=== PATIENT | male | born 1945 | race Caucasian/White ===

== ENCOUNTER 2020-07-11 06:23 | Outpatient (REF) | payer MEDICARE, OTHER, SELFPAY ==
[2020-07-11 11:28] LABS: MANUAL DIFF FLAG NO
[2020-07-11 11:44] LABS: Glucose Urine UA NEG (NEG); Leukocyte Esterase Urine NEG (NEG); Nitrite Urine NEG (NEG); Specific Gravity - Urine 1.015 (1.005-1.025); Urine Blood NEG (NEG); Urine Ketones NEG (NEG); Urine Protein NEG (NEG-TRACE)
[2020-07-11 11:45] LABS: Basophils Absolute Auto 0.1 X10*3/uL (0.0-0.2); Basophils Percent Auto 1.6 % (0-2); Eosinophils Absolute Auto 0.3 X10*3/uL (0.0-0.4); Eosinophils Percent Auto 3.9 % (0-4); Hematocrit 43.3 % (42-52); Hemoglobin 13.6 g/dl (14.0-18.0); Imm Gran Abs Auto 0.03 X10*3/uL (0.00-0.03); Imm Gran Pct Auto 0.4 % (0.0-0.4); Lymphocytes Percent Auto 14.2 % (20-40); Mean Corpuscular HGB Conc 31.4 g/dl (31.0-36.0); Mean Corpuscular Hemoglobin 28.8 pg (27.0-33.0); Mean Corpuscular Volume 91.5 fL (80-98); Mean Platelet Volume 9.7 fL (9.4-12.4); Monocytes Absolute Auto 0.8 X10*3/uL (0.1-1.2); Monocytes Percent Auto 11.4 % (2-11); Neutrophils Absolute Auto 4.6 X10*3/uL (2.0-8.3); Neutrophils Percent Auto 68.5 % (45-73); Platelet Count 206 X10*3/uL (160-400); Red Blood Count 4.73 X10*6/uL (4.60-5.80); Red Cell Distribution Width 15.7 % (11.0-16.0); White Blood Count 6.7 X10*3/uL (4.8-10.8)
[2020-07-11 11:51] LABS: Appearance Urine CLEAR; Color Urine YELLOW
[2020-07-11 11:59] LABS: Estimated Average Glucose 117 mg/dL; Hemoglobin A1c % 5.7 %
[2020-07-11 12:03] LABS: WBC Urine 0 /HPF (0-4)
[2020-07-11 12:04] LABS: RBC Urine 0 /HPF (0)
[2020-07-11 12:13] LABS: Alanine Aminotransferase 11 U/L (0-40); Albumin Level 3.9 g/dL (3.5-5.0); Alkaline Phosphatase 60 U/L (39-117); Anion Gap 14 (12-20); Aspartate Amino Transferase 15 U/L (5-37); Bilirubin Total 0.6 mg/dL (0.0-1.0); Blood Urea Nitrogen 10 mg/dL (9-16); Calcium 8.8 mg/dL (8.4-10.2); Carbon Dioxide 27 mmol/L (22-29); Chloride 105 mmol/L (96-108); Cholesterol 123 mg/dL; Estimated Glomerular Filt Rate > 60; Glucose Fasting 116 mg/dL (60-99); HDL Cholesterol 37 mg/dL; LDL Cholesterol Calculated 72 mg/dl; Potassium 4.7 mmol/l (3.3-5.1); Sodium 141 mmol/L (135-145); Total Protein 6.2 g/dL (6.5-8.0); Triglycerides 72 mg/dL
[2020-07-11 12:14] LABS: TSH reflex Free T4 0.84 mIU/mL (0.32-4.0)
== END 2020-07-11 06:24 | disposition home or self-care (01) ==
LOC: HO.HMGCLDS 06:23
PROVIDERS: PCP Internal Medicine; Visit Provider Internal Medicine
DX: E78.5 Hyperlipidemia, unspecified (principal); I10 Essential (primary) hypertension; R73.01 Impaired fasting glucose; Z85.01 Personal history of malignant neoplasm of esophagus; N40.0 Benign prostatic hyperplasia without lower urinary tract symptoms; E55.9 Vitamin D deficiency, unspecified; E66.3 Overweight
CPT/HCPCS: 36415; 80053; 80061; 81001; 82306; 83036; 84443; 85025

== ENCOUNTER → 2020-07-16 15:57 | Outpatient (BNV) | payer MEDICARE, OTHER, SELFPAY | PROVIDERS: Visit Provider Internal Medicine | DX: C15.9 Malignant neoplasm of esophagus, unspecified (principal) | CPT/HCPCS: 99213; 99214; G2211 ==

== ENCOUNTER 2020-09-12 | Outpatient (REF) | payer MEDICARE, OTHER, SELFPAY | END 2020-09-12 00:01 | disposition home or self-care (01) | LOC: HO.VC | PROVIDERS: Visit Provider Internal Medicine | DX: Z23 Encounter for immunization (principal) | CPT/HCPCS: 0011A ==

== ENCOUNTER 2020-10-09 | Outpatient (REF) | payer MEDICARE, OTHER, SELFPAY | END 2020-10-09 00:01 | disposition home or self-care (01) | LOC: HO.VC | PROVIDERS: Visit Provider Internal Medicine | DX: Z23 Encounter for immunization (principal) | CPT/HCPCS: 0012A ==

== ENCOUNTER 2020-10-23 09:30 | Outpatient (REF) | payer MEDICARE, OTHER, SELFPAY ==
[2020-10-23 11:13] LABS: MANUAL DIFF FLAG NO
[2020-10-23 11:29] LABS: Glucose Urine UA NEG (NEG); Leukocyte Esterase Urine NEG (NEG); Nitrite Urine NEG (NEG); Urine Blood NEG (NEG); Urine Ketones NEG (NEG); Urine Protein NEG (NEG-TRACE)
[2020-10-23 11:32] LABS: Appearance Urine CLEAR; Color Urine YELLOW
[2020-10-23 11:34] LABS: Basophils Absolute Auto 0.1 X10*3/uL (0.0-0.2); Basophils Percent Auto 1.1 % (0-2); Eosinophils Absolute Auto 0.2 X10*3/uL (0.0-0.4); Eosinophils Percent Auto 2.8 % (0-4); Hematocrit 43.9 % (42-52); Hemoglobin 14.1 g/dl (14.0-18.0); Imm Gran Abs Auto 0.02 X10*3/uL (0.00-0.03); Imm Gran Pct Auto 0.2 % (0.0-0.4); Lymphocytes Percent Auto 11.9 % (20-40); Mean Corpuscular HGB Conc 32.1 g/dl (31.0-36.0); Mean Corpuscular Hemoglobin 29.1 pg (27.0-33.0); Mean Corpuscular Volume 90.5 fL (80-98); Mean Platelet Volume 9.3 fL (9.4-12.4); Monocytes Absolute Auto 0.8 X10*3/uL (0.1-1.2); Monocytes Percent Auto 9.7 % (2-11); Neutrophils Percent Auto 74.3 % (45-73); Platelet Count 214 X10*3/uL (160-400); Red Blood Count 4.85 X10*6/uL (4.60-5.80); Red Cell Distribution Width 15.6 % (11.0-16.0); White Blood Count 8.1 X10*3/uL (4.8-10.8)
[2020-10-23 11:54] LABS: Alanine Aminotransferase 11 U/L (0-40); Albumin Level 3.9 g/dL (3.5-5.0); Alkaline Phosphatase 65 U/L (39-117); Anion Gap 13 (12-20); Aspartate Amino Transferase 15 U/L (5-37); Bilirubin Total 0.7 mg/dL (0.0-1.0); Blood Urea Nitrogen 10 mg/dL (9-16); Calcium 8.7 mg/dL (8.4-10.2); Carbon Dioxide 28 mmol/L (22-29); Chloride 104 mmol/L (96-108); Cholesterol 121 mg/dL; Estimated Glomerular Filt Rate > 60; Glucose Fasting 105 mg/dL (60-99); HDL Cholesterol 38 mg/dL; LDL Cholesterol Calculated 70 mg/dl; Sodium 140 mmol/L (135-145); Total Protein 6.4 g/dL (6.5-8.0); Triglycerides 69 mg/dL
[2020-10-23 12:01] LABS: TSH reflex Free T4 0.88 uIU/mL (0.32-4.0)
== END 2020-10-23 09:31 | disposition home or self-care (01) ==
LOC: HO.HMGCLDS 09:30
PROVIDERS: PCP Internal Medicine; Visit Provider Internal Medicine
DX: I10 Essential (primary) hypertension (principal); E78.00 Pure hypercholesterolemia, unspecified; R73.01 Impaired fasting glucose; E66.3 Overweight; E55.9 Vitamin D deficiency, unspecified
CPT/HCPCS: 36415; 80053; 80061; 81003; 82306; 84443; 85025

== ENCOUNTER 2021-04-30 07:49 | Outpatient (REF) | payer MEDICARE, OTHER, SELFPAY ==
[2021-04-30 11:30] LABS: Appearance Urine CLEAR; Color Urine YELLOW; Glucose Urine UA NEG (NEG); Leukocyte Esterase Urine NEG (NEG); Nitrite Urine NEG (NEG); PH 5.5 (5.0-8.0); Urine Blood NEG (NEG); Urine Ketones NEG (NEG); Urine Protein NEG (NEG-TRACE)
[2021-04-30 11:36] LABS: MANUAL DIFF FLAG NO
[2021-04-30 11:47] LABS: Basophils Absolute Auto 0.1 X10*3/uL (0.0-0.2); Basophils Percent Auto 0.5 % (0-2); Eosinophils Absolute Auto 0.3 X10*3/uL (0.0-0.4); Eosinophils Percent Auto 2.1 % (0-4); Hematocrit 45.1 % (42-52); Hemoglobin 14.3 g/dl (14.0-18.0); Imm Gran Abs Auto 0.04 X10*3/uL (0.00-0.03); Imm Gran Pct Auto 0.3 % (0.0-0.4); Lymphocytes Absolute Auto 0.8 X10*3/uL (1.2-4.9); Lymphocytes Percent Auto 6.2 % (20-40); Mean Corpuscular HGB Conc 31.7 g/dl (31.0-36.0); Mean Corpuscular Hemoglobin 29.2 pg (27.0-33.0); Mean Platelet Volume 9.7 fL (9.4-12.4); Monocytes Absolute Auto 1.5 X10*3/uL (0.1-1.2); Monocytes Percent Auto 11.5 % (2-11); Neutrophils Absolute Auto 10.1 X10*3/uL (2.0-8.3); Neutrophils Percent Auto 79.4 % (45-73); Platelet Count 218 X10*3/uL (160-400); White Blood Count 12.6 X10*3/uL (4.8-10.8)
[2021-04-30 12:10] LABS: Alanine Aminotransferase 16 U/L (0-40); Albumin Level 3.9 g/dL (3.5-5.0); Alkaline Phosphatase 68 U/L (39-117); Anion Gap 14 (12-20); Aspartate Amino Transferase 15 U/L (5-37); Bilirubin Total 0.4 mg/dL (0.0-1.0); Blood Urea Nitrogen 9 mg/dL (9-16); Calcium 9.2 mg/dL (8.4-10.2); Carbon Dioxide 26 mmol/L (22-29); Chloride 107 mmol/L (96-108); Cholesterol 131 mg/dL; Estimated Glomerular Filt Rate > 60; Glucose Fasting 112 mg/dL (60-99); HDL Cholesterol 41 mg/dL; LDL Cholesterol Calculated 76 mg/dl; Potassium 4.7 mmol/L (3.3-5.1); Sodium 142 mmol/L (135-145); Total Protein 6.2 g/dL (6.5-8.0); Triglycerides 73 mg/dL
[2021-04-30 12:20] LABS: TSH reflex Free T4 0.53 uIU/mL (0.32-4.0); Vitamin D 25-OH Total 66.9 ng/mL (>30)
[2021-04-30 12:36] LABS: Estimated Average Glucose 117 mg/dL; Hemoglobin A1c % 5.7 %
== END 2021-04-30 07:50 | disposition home or self-care (01) ==
LOC: HO.HMGCLDS 07:49
PROVIDERS: PCP Internal Medicine; Visit Provider Internal Medicine
DX: I10 Essential (primary) hypertension (principal); E55.9 Vitamin D deficiency, unspecified; R73.01 Impaired fasting glucose; E78.00 Pure hypercholesterolemia, unspecified; E66.3 Overweight
CPT/HCPCS: 36415; 80053; 80061; 81003; 82306; 83036; 84443; 85025

== ENCOUNTER 2021-09-10 08:45 | Outpatient (REF) | payer MEDICARE, OTHER, SELFPAY ==
[2021-09-10 11:30] LABS: Appearance Urine CLEAR; Color Urine YELLOW; Glucose Urine UA NEG (NEG); Leukocyte Esterase Urine NEG (NEG); Nitrite Urine NEG (NEG); Specific Gravity - Urine 1.015 (1.005-1.025); Urine Blood NEG (NEG); Urine Ketones NEG (NEG); Urine Protein NEG (NEG-TRACE)
[2021-09-10 11:36] LABS: MANUAL DIFF FLAG NO
[2021-09-10 11:41] LABS: Basophils Absolute Auto 0.1 X10*3/uL (0.0-0.2); Basophils Percent Auto 1.3 % (0-2); Eosinophils Absolute Auto 0.2 X10*3/uL (0.0-0.4); Eosinophils Percent Auto 3.4 % (0-4); Hematocrit 45.6 % (42.0-52.0); Hemoglobin 14.3 g/dl (14.0-18.0); Imm Gran Abs Auto 0.03 X10*3/uL (0.00-0.03); Imm Gran Pct Auto 0.4 % (0.0-0.4); Lymphocytes Absolute Auto 0.9 X10*3/uL (1.2-4.9); Lymphocytes Percent Auto 13.8 % (20-40); Mean Corpuscular HGB Conc 31.4 g/dl (31.0-36.0); Mean Corpuscular Hemoglobin 29.4 pg (27.0-33.0); Mean Corpuscular Volume 93.6 fL (80.0-98.0); Mean Platelet Volume 9.5 fL (9.4-12.4); Monocytes Absolute Auto 0.7 X10*3/uL (0.1-1.2); Monocytes Percent Auto 10.5 % (2-11); Neutrophils Absolute Auto 4.7 x10*3/uL (2.0-8.3); Neutrophils Percent Auto 70.6 % (45-73); Platelet Count 239 X10*3/uL (160-400); Red Blood Count 4.87 X10*6/uL (4.60-5.80); Red Cell Distribution Width 15.9 % (11.0-16.0); White Blood Count 6.7 X10*3/uL (4.8-10.8)
[2021-09-10 11:51] LABS: Estimated Average Glucose 120 mg/dL; Hemoglobin A1C 149.9012 umol/L; Hemoglobin A1c % 5.8 %
[2021-09-10 12:11] LABS: Alanine Aminotransferase 15 U/L (0-40); Albumin Level 3.9 g/dL (3.5-5.0); Alkaline Phosphatase 65 U/L (39-117); Anion Gap 13 (12-20); Aspartate Amino Transferase 18 U/L (5-37); Bilirubin Total 0.4 mg/dL (0.0-1.0); Blood Urea Nitrogen 9 mg/dL (9-16); Calcium 9.1 mg/dL (8.4-10.2); Carbon Dioxide 28 mmol/L (22-29); Chloride 106 mmol/L (96-108); Cholesterol 139 mg/dL; Estimated Glomerular Filt Rate > 60; Glucose Fasting 101 mg/dL (60-99); HDL Cholesterol 40 mg/dL; LDL Cholesterol Calculated 83 mg/dl; Potassium 5.2 mmol/L (3.3-5.1); Sodium 142 mmol/L (135-145); TSH reflex Free T4 0.95 uIU/mL (0.32-4.0); Total Protein 6.4 g/dL (6.5-8.0); Triglycerides 83 mg/dL; Vitamin D 25-OH Total 77.2 ng/mL (>30)
[2021-09-11 03:27] LABS: SARS COV2 IgG Negative (Negative)
== END 2021-09-10 08:46 | disposition home or self-care (01) ==
LOC: HO.HMGCLDS 08:45
PROVIDERS: PCP Internal Medicine; Visit Provider Internal Medicine
DX: Z20.822 Contact with and (suspected) exposure to COVID-19 (principal); E55.9 Vitamin D deficiency, unspecified; E78.00 Pure hypercholesterolemia, unspecified; I10 Essential (primary) hypertension; R73.01 Impaired fasting glucose
CPT/HCPCS: 36415; 80053; 80061; 81003; 82306; 83036; 84443; 85025; 86769

== ENCOUNTER 2022-01-01 08:46 | Outpatient (REF) | payer MEDICARE, OTHER, SELFPAY ==
[2022-01-01 11:15] LABS: MANUAL DIFF FLAG NO
[2022-01-01 11:19] LABS: Basophils Absolute Auto 0.1 X10*3/uL (0.0-0.2); Basophils Percent Auto 1.7 % (0-2); Eosinophils Absolute Auto 0.4 X10*3/uL (0.0-0.4); Eosinophils Percent Auto 4.7 % (0-4); Hematocrit 42.9 % (42.0-52.0); Hemoglobin 14.1 g/dl (14.0-18.0); Imm Gran Abs Auto 0.03 X10*3/uL (0.00-0.03); Imm Gran Pct Auto 0.4 % (0.0-0.4); Lymphocytes Percent Auto 13.9 % (20-40); Mean Corpuscular HGB Conc 32.9 g/dl (31.0-36.0); Mean Corpuscular Hemoglobin 30.2 pg (27.0-33.0); Mean Corpuscular Volume 91.9 fL (80.0-98.0); Mean Platelet Volume 9.5 fL (9.4-12.4); Monocytes Absolute Auto 0.8 X10*3/uL (0.1-1.2); Monocytes Percent Auto 10.4 % (2-11); Neutrophils Absolute Auto 5.2 x10*3/uL (2.0-8.3); Neutrophils Percent Auto 68.9 % (45-73); Platelet Count 235 X10*3/uL (160-400); Red Blood Count 4.67 X10*6/uL (4.60-5.80); Red Cell Distribution Width 15.3 % (11.0-16.0); White Blood Count 7.5 X10*3/uL (4.8-10.8)
[2022-01-01 11:34] LABS: Alanine Aminotransferase 16 U/L (0-40); Alkaline Phosphatase 63 U/L (39-117); Anion Gap 11 (12-20); Aspartate Amino Transferase 15 U/L (5-37); Bilirubin Total 0.8 mg/dL (0.0-1.0); Blood Urea Nitrogen 10 mg/dL (9-16); Calcium 9.1 mg/dL (8.4-10.2); Carbon Dioxide 27 mmol/L (22-29); Chloride 104 mmol/L (96-108); Cholesterol 117 mg/dL; Estimated Glomerular Filt Rate > 60; Glucose Fasting 98 mg/dL (60-99); HDL Cholesterol 32 mg/dL; LDL Cholesterol Calculated 66 mg/dl; Potassium 4.4 mmol/L (3.3-5.1); Sodium 138 mmol/L (135-145); Total Protein 6.7 g/dL (6.5-8.0); Triglycerides 98 mg/dL
[2022-01-01 11:36] LABS: Estimated Average Glucose 117 mg/dL; Hemoglobin A1c % 5.7 %
[2022-01-01 11:43] LABS: Appearance Urine CLEAR; Color Urine YELLOW; Glucose Urine UA NEG (NEG); Leukocyte Esterase Urine NEG (NEG); Nitrite Urine NEG (NEG); Urine Blood NEG (NEG); Urine Ketones NEG (NEG); Urine Protein NEG (NEG-TRACE)
[2022-01-01 12:04] LABS: TSH reflex Free T4 0.58 uIU/mL (0.32-4.0); Vitamin D 25-OH Total 78.3 ng/mL (>30)
== END 2022-01-01 08:47 | disposition home or self-care (01) ==
LOC: HO.HMGCLDS 08:46
PROVIDERS: Absent Provider Surgery; Visit Provider Internal Medicine
DX: I10 Essential (primary) hypertension (principal); E55.9 Vitamin D deficiency, unspecified; R73.01 Impaired fasting glucose; E78.00 Pure hypercholesterolemia, unspecified
CPT/HCPCS: 36415; 80053; 80061; 81003; 82306; 83036; 84443; 85025

== ENCOUNTER 2022-04-16 09:39 | Outpatient (REF) | payer MEDICARE, OTHER, SELFPAY ==
[2022-04-16 11:13] LABS: MANUAL DIFF FLAG NO
[2022-04-16 11:30] LABS: Basophils Absolute Auto 0.1 X10*3/uL (0.0-0.2); Basophils Percent Auto 0.7 % (0-2); Eosinophils Absolute Auto 0.2 X10*3/uL (0.0-0.4); Eosinophils Percent Auto 1.7 % (0-4); Hematocrit 45.4 % (42.0-52.0); Hemoglobin 14.6 g/dl (14.0-18.0); Imm Gran Abs Auto 0.04 X10*3/uL (0.00-0.03); Imm Gran Pct Auto 0.4 % (0.0-0.4); Lymphocytes Absolute Auto 0.8 X10*3/uL (1.2-4.9); Lymphocytes Percent Auto 7.5 % (20-40); Mean Corpuscular HGB Conc 32.2 g/dl (31.0-36.0); Mean Corpuscular Hemoglobin 29.4 pg (27.0-33.0); Mean Corpuscular Volume 91.5 fL (80.0-98.0); Mean Platelet Volume 9.2 fL (9.4-12.4); Neutrophils Absolute Auto 8.8 x10*3/uL (2.0-8.3); Neutrophils Percent Auto 80.7 % (45-73); Platelet Count 233 X10*3/uL (160-400); Red Blood Count 4.96 X10*6/uL (4.60-5.80); Red Cell Distribution Width 14.7 % (11.0-16.0); White Blood Count 10.9 X10*3/uL (4.8-10.8)
[2022-04-16 11:31] LABS: Appearance Urine Clear; Color Urine Yellow; Glucose Urine UA Negative (Negative); Leukocyte Esterase Urine Negative (Negative); Nitrite Urine Negative (Negative); PH 6.5 (5.0-9.0); Urine Blood Negative (Negative); Urine Ketones Negative (Negative); Urine Protein Negative (Neg-Trace)
[2022-04-16 11:42] LABS: Alanine Aminotransferase 12 U/L (0-40); Albumin Level 3.9 g/dL (3.5-5.0); Alkaline Phosphatase 66 U/L (39-117); Anion Gap 17 (12-20); Aspartate Amino Transferase 15 U/L (5-37); Bilirubin Total 0.5 mg/dL (0.0-1.0); Blood Urea Nitrogen 9 mg/dL (9-16); Calcium 8.9 mg/dL (8.4-10.2); Carbon Dioxide 25 mmol/L (22-29); Chloride 104 mmol/L (96-108); Cholesterol 134 mg/dL; Estimated Glomerular Filt Rate > 60; Glucose Fasting 109 mg/dL (60-99); HDL Cholesterol 36 mg/dL; LDL Cholesterol Calculated 79 mg/dl; Potassium 4.7 mmol/L (3.3-5.1); Sodium 141 mmol/L (135-145); Total Protein 6.5 g/dL (6.5-8.0); Triglycerides 98 mg/dL
[2022-04-16 12:07] LABS: TSH reflex Free T4 0.88 uIU/mL (0.32-4.0); Vitamin D 25-OH Total 95.3 ng/mL (>30)
== END 2022-04-16 09:40 | disposition home or self-care (01) ==
LOC: HO.HMGCLDS 09:39
PROVIDERS: PCP Internal Medicine; Visit Provider Internal Medicine
DX: E78.00 Pure hypercholesterolemia, unspecified (principal); I10 Essential (primary) hypertension; E55.9 Vitamin D deficiency, unspecified
CPT/HCPCS: 36415; 80053; 80061; 81003; 82306; 84443; 85025

== ENCOUNTER 2022-07-14 07:42 | Outpatient (REF) | payer MEDICARE, OTHER, SELFPAY ==
[2022-07-14 11:24] LABS: MANUAL DIFF FLAG NO
[2022-07-14 11:38] LABS: Appearance Urine Clear; Basophils Absolute Auto 0.1 X10*3/uL (0.0-0.2); Basophils Percent Auto 1.5 % (0-2); Color Urine Yellow; Eosinophils Absolute Auto 0.4 X10*3/uL (0.0-0.4); Eosinophils Percent Auto 5.2 % (0-4); Glucose Urine UA Negative (Negative); Hematocrit 42.6 % (42.0-52.0); Hemoglobin 13.9 g/dl (14.0-18.0); Imm Gran Abs Auto 0.02 X10*3/uL (0.00-0.03); Imm Gran Pct Auto 0.3 % (0.0-0.4); Leukocyte Esterase Urine Negative (Negative); Lymphocytes Absolute Auto 0.9 X10*3/uL (1.2-4.9); Lymphocytes Percent Auto 12.1 % (20-40); Mean Corpuscular HGB Conc 32.6 g/dl (31.0-36.0); Mean Corpuscular Volume 91.8 fL (80.0-98.0); Mean Platelet Volume 9.6 fL (9.4-12.4); Monocytes Absolute Auto 0.9 X10*3/uL (0.1-1.2); Monocytes Percent Auto 12.2 % (2-11); Neutrophils Absolute Auto 5.2 x10*3/uL (2.0-8.3); Neutrophils Percent Auto 68.7 % (45-73); Nitrite Urine Negative (Negative); PH 5.5 (5.0-9.0); Platelet Count 215 X10*3/uL (160-400); Red Blood Count 4.64 X10*6/uL (4.60-5.80); Red Cell Distribution Width 15.3 % (11.0-16.0); Specific Gravity - Urine 1.015 (1.005-1.025); Urine Blood Negative (Negative); Urine Ketones Negative (Negative); Urine Protein Negative (Neg-Trace); White Blood Count 7.5 X10*3/uL (4.8-10.8)
[2022-07-14 11:48] LABS: Estimated Average Glucose 117 mg/dL; Hemoglobin A1c % 5.7 %
[2022-07-14 12:20] LABS: Alanine Aminotransferase 12 U/L (0-40); Albumin Level 3.9 g/dL (3.5-5.0); Alkaline Phosphatase 63 U/L (39-117); Anion Gap 11 (12-20); Aspartate Amino Transferase 13 U/L (5-37); Bilirubin Total 0.7 mg/dL (0.0-1.0); Blood Urea Nitrogen 13 mg/dL (9-16); Carbon Dioxide 28 mmol/L (22-29); Chloride 106 mmol/L (96-108); Cholesterol 126 mg/dL; Estimated Glomerular Filt Rate > 60; Glucose Fasting 103 mg/dL (60-99); HDL Cholesterol 34 mg/dL; LDL Cholesterol Calculated 75 mg/dl; Sodium 141 mmol/L (135-145); TSH reflex Free T4 0.98 uIU/mL (0.32-4.0); Total Protein 6.2 g/dL (6.5-8.0); Triglycerides 89 mg/dL; Vitamin D 25-OH Total 64.5 ng/mL (>30)
== END 2022-07-14 07:43 | disposition home or self-care (01) ==
LOC: HO.HMGCLDS 07:42
PROVIDERS: PCP Internal Medicine; Visit Provider Internal Medicine
DX: E78.00 Pure hypercholesterolemia, unspecified (principal); E55.9 Vitamin D deficiency, unspecified; I10 Essential (primary) hypertension; R73.01 Impaired fasting glucose
CPT/HCPCS: 36415; 80053; 80061; 81003; 82306; 83036; 84443; 85025

== ENCOUNTER 2022-11-11 06:23 | Outpatient (REF) | payer MEDICARE, OTHER, SELFPAY ==
[2022-11-11 11:30] LABS: MANUAL DIFF FLAG NO
[2022-11-11 11:40] LABS: Appearance Urine Clear; Color Urine Yellow; Glucose Urine UA Negative (Negative); Leukocyte Esterase Urine Negative (Negative); Nitrite Urine Negative (Negative); Specific Gravity - Urine <= 1.005 (1.005-1.025); Urine Blood Negative (Negative); Urine Ketones Negative (Negative); Urine Protein Negative (Neg-Trace)
[2022-11-11 11:57] LABS: Basophils Absolute Auto 0.1 X10*3/uL (0.0-0.2); Basophils Percent Auto 1.7 % (0-2); Eosinophils Absolute Auto 0.3 X10*3/uL (0.0-0.4); Eosinophils Percent Auto 3.6 % (0-4); Hematocrit 46.4 % (42.0-52.0); Hemoglobin 14.8 g/dl (14.0-18.0); Imm Gran Abs Auto 0.02 X10*3/uL (0.00-0.03); Imm Gran Pct Auto 0.3 % (0.0-0.4); Lymphocytes Absolute Auto 1.1 X10*3/uL (1.2-4.9); Lymphocytes Percent Auto 15.2 % (20-40); Mean Corpuscular HGB Conc 31.9 g/dl (31.0-36.0); Mean Corpuscular Hemoglobin 29.9 pg (27.0-33.0); Mean Corpuscular Volume 93.7 fL (80.0-98.0); Mean Platelet Volume 9.7 fL (9.4-12.4); Monocytes Absolute Auto 0.9 X10*3/uL (0.1-1.2); Monocytes Percent Auto 11.7 % (2-11); Neutrophils Absolute Auto 4.9 x10*3/uL (2.0-8.3); Neutrophils Percent Auto 67.5 % (45-73); Platelet Count 213 X10*3/uL (160-400); Red Blood Count 4.95 X10*6/uL (4.60-5.80); Red Cell Distribution Width 15.6 % (11.0-16.0); White Blood Count 7.3 X10*3/uL (4.8-10.8)
[2022-11-11 12:25] LABS: Estimated Average Glucose 114 mg/dL; Hemoglobin A1C 148.6868 umol/L; Hemoglobin A1c % 5.6 %
[2022-11-11 12:38] LABS: Alanine Aminotransferase 8 U/L (0-40); Alkaline Phosphatase 73 U/L (39-117); Anion Gap 15 (12-20); Aspartate Amino Transferase 16 U/L (5-37); Bilirubin Total 0.6 mg/dL (0.0-1.0); Blood Urea Nitrogen 9 mg/dL (9-16); Calcium 9.1 mg/dL (8.4-10.2); Carbon Dioxide 26 mmol/L (22-29); Chloride 107 mmol/L (96-108); Cholesterol 130 mg/dL; Estimated Glomerular Filt Rate > 60; Glucose Fasting 108 mg/dL (60-99); HDL Cholesterol 37 mg/dL; LDL Cholesterol Calculated 67 mg/dl; Potassium 5.2 mmol/L (3.3-5.1); Sodium 143 mmol/L (135-145); TSH reflex Free T4 1.34 uIU/mL (0.32-4.0); Total Protein 6.3 g/dL (6.5-8.0); Triglycerides 131 mg/dL; Vitamin D 25-OH Total 85.2 ng/mL (>30)
== END 2022-11-11 06:24 | disposition home or self-care (01) ==
LOC: HO.HMGCLDS 06:23
PROVIDERS: Absent Provider Family Medicine; PCP Internal Medicine; Visit Provider Internal Medicine
DX: I10 Essential (primary) hypertension (principal); E55.9 Vitamin D deficiency, unspecified; R73.01 Impaired fasting glucose; R30.0 Dysuria; E78.00 Pure hypercholesterolemia, unspecified
CPT/HCPCS: 36415; 80053; 80061; 81003; 82306; 83036; 84443; 85025

== ENCOUNTER 2023-03-16 08:24 | Outpatient (REF) | payer MEDICARE, OTHER, SELFPAY ==
[2023-03-16 11:25] LABS: Appearance Urine Clear; Color Urine Yellow; Glucose Urine UA Negative (Negative); Leukocyte Esterase Urine Negative (Negative); Nitrite Urine Negative (Negative); PH 5.5 (5.0-9.0); Urine Blood Negative (Negative); Urine Ketones Negative (Negative); Urine Protein Negative (Neg-Trace)
[2023-03-16 11:30] LABS: MANUAL DIFF FLAG NO
[2023-03-16 11:49] LABS: Basophils Absolute Auto 0.1 X10*3/uL (0.0-0.2); Basophils Percent Auto 1.4 % (0-2); Eosinophils Absolute Auto 0.2 X10*3/uL (0.0-0.4); Eosinophils Percent Auto 2.5 % (0-4); Hematocrit 47.1 % (42.0-52.0); Imm Gran Abs Auto 0.02 X10*3/uL (0.00-0.03); Imm Gran Pct Auto 0.3 % (0.0-0.4); Lymphocytes Absolute Auto 1.2 X10*3/uL (1.2-4.9); Lymphocytes Percent Auto 15.9 % (20-40); Mean Corpuscular HGB Conc 31.8 g/dl (31.0-36.0); Mean Corpuscular Hemoglobin 29.7 pg (27.0-33.0); Mean Corpuscular Volume 93.3 fL (80.0-98.0); Mean Platelet Volume 9.8 fL (9.4-12.4); Monocytes Absolute Auto 0.7 X10*3/uL (0.1-1.2); Monocytes Percent Auto 9.5 % (2-11); Neutrophils Absolute Auto 5.2 x10*3/uL (2.0-8.3); Neutrophils Percent Auto 70.4 % (45-73); Platelet Count 213 X10*3/uL (160-400); Red Blood Count 5.05 X10*6/uL (4.60-5.80); Red Cell Distribution Width 15.4 % (11.0-16.0); White Blood Count 7.3 X10*3/uL (4.8-10.8)
[2023-03-16 12:10] LABS: Estimated Average Glucose 108 mg/dL; Hemoglobin A1c % 5.4 %
[2023-03-16 12:41] LABS: Alanine Aminotransferase 11 U/L (0-40); Alkaline Phosphatase 58 U/L (39-117); Anion Gap 15 (12-20); Aspartate Amino Transferase 14 U/L (5-37); Bilirubin Total 0.6 mg/dL (0.0-1.0); Blood Urea Nitrogen 10 mg/dL (9-16); Calcium 9.3 mg/dL (8.4-10.2); Carbon Dioxide 23 mmol/L (22-29); Chloride 108 mmol/L (96-108); Cholesterol 135 mg/dL; Estimated Glomerular Filt Rate > 60; Glucose Fasting 97 mg/dL (60-99); HDL Cholesterol 41 mg/dL; LDL Cholesterol Calculated 73 mg/dl; Potassium 4.9 mmol/L (3.3-5.1); Sodium 141 mmol/L (135-145); Total Protein 6.7 g/dL (6.5-8.0); Triglycerides 106 mg/dL
[2023-03-16 12:45] LABS: TSH reflex Free T4 0.63 uIU/mL (0.32-4.0); Vitamin D 25-OH Total 120.6 ng/mL (>30)
== END 2023-03-16 08:25 | disposition home or self-care (01) ==
LOC: HO.HMGCLDS 08:24
PROVIDERS: PCP Internal Medicine; Visit Provider Internal Medicine
DX: I10 Essential (primary) hypertension (principal); E78.00 Pure hypercholesterolemia, unspecified; R30.0 Dysuria; E55.9 Vitamin D deficiency, unspecified; R73.01 Impaired fasting glucose
CPT/HCPCS: 36415; 80053; 80061; 81003; 82306; 83036; 84443; 85025

== ENCOUNTER 2023-03-23 12:44 | Outpatient (AMB) | payer MEDICARE, OTHER, SELFPAY ==
[2023-03-23 12:57] VITALS: BP 116/80; PULSE 85; O2SAT 96; BMI 23.9
--- NOTE | 2023-03-23 12:57 | A.OFFPC_ITS ---
Vital Signs 03/23/23 12:57 Height 5 ft 9 in Weight 162 lb BMI 23.9 BP 116/80 Blood Pressure Location Lt brachial Position Sitting Pulse 85 Pulse Source Pulse Oximeter Pulse Oximetry (%) 96 Oxygen Delivery Method Room Air Intake Visit Reasons: HTN, hyperlipidemia, IFG, Hx esophageal CA Grade Foreman Required: No Accompanied by: Self / Same As Patient Allergies lactose [LACTOSE] Allergy (Unknown, Verified 03/23/23 13:07) INTOLERANT Medication List - Last Reviewed 03/23/23 by Reese Kirby albuterol sulfate 90 mcg/actuation (ProAir HFA) 1 inh inhalation QID PRN cetirizine (Zyrtec) 10 mg PO DAILY cholecalciferol (vitamin D3) (Vitamin D3) 50 mcg PO DAILY finasteride 1 tab PO DAILY losartan 25 mg PO DAILY melatonin 10 mg PO BEDTIME PRN multivitamin 1 tab PO DAILY omeprazole 40 mg PO DAILY simvastatin 20 mg PO BEDTIME tamsulosin 1 cap PO DAILY tiotropium-olodaterol 2.5-2.5 mcg/actuation (Stiolto Respimat) 2 puffs inhalation DAILY Tobacco use date assessed: 03/23/23 Fall risk assessment: No Falls in past year Last assessed Fall Risk: 03/23/23 Dental Screening Dental Screen Date: 03/23/23 Did you have a dental visit in the last 12 months?: Yes Did you have a dental problem in the last 6 months where you did not have access to dental care?: No Was dental information given to patient?: Patient has dentist HPI HTN, hyperlipidemia, IFG, Hx esophageal CA HPI Details Patient comes in today for his follow up visit States that he feels okay He denies any headaches or dizziness Denies any chest pains, no SOB No nausea/vomiting, no abdominal pain No change in bowel habits noted Had his follow up labs done last week - to discuss his results [facility] Medical History AAA (abdominal aortic aneurysm) without rupture Aneurysm Anxiety Benign essential hypertension BPH (benign prostatic hyperplasia) COPD (chronic obstructive pulmonary disease) COVID-19 vaccine administered Esophageal adenocarcinoma History of esophageal cancer Hypertension Impaired fasting glucose Lumbar degenerative disc disease Osteoarthritis Overweight (BMI 25.0-29.9) Pharyngitis Pneumonia Pure hypercholesterolemia TIA (transient ischemic attack) Vitamin D deficiency Surgical History History of bunionectomy of left great toe (~02/2016) History of bunionectomy of right great toe (~01/26/13) History of colonoscopy History of esophagectomy (~10/15/16) History of hip surgery History of incisional hernia repair History of shoulder surgery Hx of colonoscopy S/P AAA repair (~05/26/19) Family History Daughter Breast cancer Father Substance abuse Social History Household Members: [facility] Alcohol intake: current Alcohol intake frequency: holidays/special occasions only Alcohol type: beer Patient Tobacco Use Status: Former Tobacco user Quit Date: 1980 Tobacco use type: Cigarette Cigarette Packs Per Day: 2 e-Cigarette/Vaping Use: Never Used Second Hand Smoke Exposure: Yes service: Yes ([employer]) Current occupational status: retired Cognitive needs: No Hearing needs: Yes Vision needs: Yes Questionnaire PHQ-9 Over the last 2 weeks, how often have you been bothered by any of the following problems? 1. Little interest or pleasure in doing things: not at all 2. Feeling down, depressed, or hopeless: not at all 3. Trouble falling or staying asleep, or sleeping too much: not at all 4. Feeling tired or having little energy: not at all 5. Poor appetite or overeating: not at all 6. Feeling bad about yourself - or that you are a failure or have let yourself or your family down: not at all 7. Trouble concentrating on things, such as reading the newspaper or watching television: not at all 8. Moving or speaking so slowly that other people could have noticed. Or the opposite - being so fidgety or restless that you have been moving around a lot more than usual: not at all 9. Thoughts that you would be better off or of hurting yourself in some way: not at all Total score: 0 Depression Screening Interpretation: Negative 41930 - PHQ-9 Billing: Yes Source: Developed by Drs. David Chakraborty, Demetrio Cardenas and colleagues, with an educational crys from [employer]. Thrive Questionnaire Date Thrive assessed: 03/23/23 I am a: Patient What is your living situation today?: I have a steady place to live Within the past 12 months, did the food you bought not last and you didn't have the money to get more?: Never true Within the past 12 months, did you worry whether your food would run out before you got money to buy more?: Never true Do you have trouble paying for medicines?: No Do you have trouble getting transportation to medical appointments?: No Do you have trouble paying your heating and electricity bill?: No Do you have trouble taking care of your child, family member or friend?: No Do you have trouble with day-to-day activities such as bathing, preparing meals, shopping, managing finances, etc.?: No Are you currently unemployed and looking for a job?: No Are you interested in more education?: No Please select the resources that you would like help with: None Currently or been in a relationship where the following occur: no concerns reported AUDIT C Alcohol Use Questionnaire (AUDIT-C) 1. How often do you have a drink containing alcohol?: Monthly or less 2. How many drinks containing alcohol do you have on a typical day when you are drinking?: 1 or 2 3. How often do you have six or more drinks on one occasion?: Never Total Score: 1 Score Reviewed/Action Taken: Yes SHRUTHI-7 AMB Questionnaire SHRUTHI-7 Date SHRUTHI - 7 assessed: 03/23/23 Feeling nervous, anxious, or on edge: 0 = Not at all Not being able to stop or control worryin = Not at all Worrying too much about different things: 0 = Not at all Trouble relaxin = Not at all Being so restless that it is hard to sit still: 0 = Not at all Becoming easily annoyed or irritable: 0 = Not at all Feeling afraid as if something awful might happen: 0 = Not at all Total SHRUTHI-7 score (0-4 normal; 5-9 mild; 10-14 moderate; 15-21 severe): 0 Source: Developed by Drs. David Chakraborty, Demetrio Cardenas and colleagues, with an educational crys from [employer]. Review of Systems Const Denies chills, Denies fatigue, Denies fever(s) and Denies headache(s) ENT Denies dysphagia, Denies dizziness, Denies otalgia, Denies headache(s), Denies n caitlyn pain and Denies sore throat Card Denies chest pain, Denies palpitations and Denies dyspnea Resp Denies cough and Denies dyspnea GI Denies abdominal pain, Denies constipation, Denies dysphagia, Denies heartburn, Denies diarrhea, Denies nausea and Denies vomiting Denies dysuria, Denies nocturia and Denies urinary frequency Musc Denies neck pain Neuro Denies dizziness and Denies headache(s) Endo Denies fatigue and Denies palpitations Physical exam (Primary Care) Vital Signs: Oxygen Delivery Method Room Air 03/23/23 12:57 BMI result Body Mass Index 23.9 Tobacco/Smoking Status: Tobacco use Status Tobacco use date assessed 03/23/23 03/23/23 12:59 Patient Tobacco Use Status Former Tobacco user 03/23/23 12:59 Tobacco use type Cigarette 03/23/23 12:59 e-Cigarette/Vaping Use Never Used 03/23/23 12:59 PHQ-9: PHQ-9 Score PHQ-9: Total score 0 03/23/23 13:03 Depression Screening Interpretation: Negative Thrive Assessment: Date of Thrive Assessment Date Thrive assessed 03/23/23 03/23/23 12:59 Currently or been in a relationship where the following occur: no concerns reported Const General: no acute distress and alert HENMT Ears: TM's normal bilaterally and EAC's normal Throat: Yes posterior oropharynx normal and Yes tonsils normal (no TP congestion noted) Neck Neck: Yes no lymphadenopathy and Yes supple Resp Auscultation: clear to auscultation bilaterally, no rales and no wheezes Cardio Rate: regular rate Rhythm: regular rhythm Heart sounds: no murmurs GI Palpation (GI): Soft to palpation and nontender Auscultation: normal bowel sounds Extrem General: Yes no clubbing, cyanosis or edema Results Reviewed Results Reviewed: Laboratory Tests 03/16/23 03/16/23 03/16/23 08:33 08:33 08:33 WBC 7.3 Hgb 15.0 Hct 47.1 Plt Count 213 Sodium 141 Potassium 4.9 Creatinine 0.86 Estimated GFR > 60 Fasting Glucose 97 Hemoglobin A1c % 5.4 Calcium 9.3 AST 14 ALT 11 Triglycerides 106 Cholesterol 135 LDL Cholesterol, Calc 73 HDL Cholesterol 41 25-OH Vitamin D Total 120.6 TSH 0.63 Ur Specific [place] Urine Protein Urine Glucose (UA) Urine Blood 03/16/23 08:35 WBC Hgb Hct Plt Count Sodium Potassium Creatinine Estimated GFR Fasting Glucose Hemoglobin A1c % Calcium AST ALT Triglycerides Cholesterol LDL Cholesterol, Calc HDL Cholesterol 25-OH Vitamin D Total TSH Ur Specific [place] 1.010 Urine Protein Negative Urine Glucose (UA) Negative Urine Blood Negative Assessment and Plan Assessment & Plan (1) Pure hypercholesterolemia: Code(s): E78.00 - Pure hypercholesterolemia, unspecified Plan: Results of his labs done last week reviewed and discussed with patient Reinforced low cholesterol diet Continue Simvastatin 20 mg QD Will recheck his labs in 4 months for follow-up (2) Benign essential hypertension: Code(s): I10 - Essential (primary) hypertension Plan: Reinforced low-sodium diet - goal is systolic BP of at least 140 mm or less Patient's BP remains very well-controlled Continue Losartan 25 mg QD (3) Impaired fasting glucose: Code(s): R73.01 - Impaired fasting glucose Plan: HgbA1c remains normal at 5.4% on his labs done last week; was at 5.6% a few months ago Reinforced low calorie diet / exercise as tolerated (4) COPD (chronic obstructive pulmonary disease): Code(s): J44.9 - Chronic obstructive pulmonary disease, unspecified Qualifiers: COPD type: unspecified COPD Qualified Code(s): J44.9 - Chronic obstruct pro pulmonary disease, unspecified Plan: Stable - continue Stiolto Respimat 2.5 mcg 2 puffs QD and ProAir HFA 2 puffs 4 times a day PRN (5) AAA (abdominal aortic aneurysm) without rupture: Comment: S/P AAA repair at [facility] on 01/24/2019 - (+) aortoiliac stent graft over infrarenal AAA Code(s): I71.4 - Abdominal aortic aneurysm, without rupture Plan: S/P surgical repair of endoleak over his aortoiliac stent graft on 03/03/[address] Dockery at [facility] Follow up with vascular surgery as scheduled for continuing management and surveillance (6) Vitamin D deficiency: Code(s): E55.9 - Vitamin D deficiency, unspecified Plan: Corrected Is on Vitamin D3 2000 units QD but will advise patient to try HOLDING his Vitamin D for now as his level continues to go up and he is now at slightly over 120 ng/ml Will recheck his Vitamin D level in 4 months for follow up (7) Lumbar degenerative disc disease: Code(s): M51.36 - Other intervertebral disc degeneration, lumbar region Plan: Reinforced activity and weight lifting restrictions to avoid aggravating his low back pain (8) Osteoarthritis: Code(s): M19.90 - Unspecified osteoarthritis, unspecified site Qualifiers: Osteoarthritis location: unspecified site Osteoarthritis type: primary Qualified Code(s): M19.91 - Primary osteoarthritis, unspecified site Plan: Reinforced regular exercise to help minimize his joint pains and stiffness (9) History of esophageal cancer: Comment: S/P Allison Jani esophagectomy on 10/15/2016 Code(s): Z85.01 - Personal history of malignant neoplasm of esophagus Plan: Continue Omeprazole [address] done last year reportedly showed no evidence of metastatic disease Follow-up with Oncology (Dr. Delarosa) as scheduled for continuing surveillance - sees Dr. Delarosa once a year now (10) Anxiety: Code(s): F41.9 - Anxiety disorder, unspecified Plan: Continue Citalopram 10 mg QD Plan Follow up in 4 months Orders: Orders Comprehensive [place]. Panel Fast 4 Months E78.00 - Pure hypercholesterolemia, unspecified Hemoglobin A1c 4 Months R73.01 - Impaired fasting glucose Lipid Panel 4 Months E78.00 - Pure hypercholesterolemia, unspecified TSH reflex Free T4 4 Months E78.00 - Pure hypercholesterolemia, unspecified Vitamin D 25-OH Total 4 Months E55.9 - Vitamin D deficiency, unspecified Complete Blood Count Auto Diff 4 Months I10 - Essential (primary) hypertension UA CC w/rflx Micro + Cult 4 Months R30.0 - Dysuria Coding Level of Care Code Est Pt Level 4 (13161) Diagnoses Pure hypercholesterolemia E78.00 Benign essential hypertension I10 Impaired fasting glucose R73.01 COPD (chronic obstructive pulmonary disease) J44.9 COPD type: unspecified COPD AAA (abdominal aortic aneurysm) without rupture I71.4 Vitamin D deficiency E55.9 Lumbar degenerative disc disease M51.36 Osteoarthritis M19.91 Osteoarthritis location: unspecified site Osteoarthritis type: primary History of esophageal cancer Z85.01 Anxiety F41.9
== END 2023-03-23 13:55 | disposition home or self-care (01) ==
PROVIDERS: Visit Provider Internal Medicine
DX: I10 Essential (primary) hypertension (principal); E55.9 Vitamin D deficiency, unspecified; F41.9 Anxiety disorder, unspecified; Z85.01 Personal history of malignant neoplasm of esophagus; J44.9 Chronic obstructive pulmonary disease, unspecified; I71.40 Abdominal aortic aneurysm, without rupture, unspecified; E78.00 Pure hypercholesterolemia, unspecified; R73.01 Impaired fasting glucose; M51.36 Other intervertebral disc degeneration, lumbar region; M19.91 Primary osteoarthritis, unspecified site
CPT/HCPCS: 99214

== ENCOUNTER 2023-07-15 14:52 | Outpatient (REF) | payer MEDICARE, OTHER, SELFPAY ==
--- NOTE | ~2023-07-15 | XR_ITS ---
EXAMINATION: XR CHEST CLINICAL INFORMATION: Cough, weight loss. COMPARISON: 02/24/2017 TECHNIQUE: 2 views of the chest were obtained. FINDINGS: There is no gross pneumothorax. Redemonstration of postsurgical changes with right parasagittal mediastinal clips, surgical wire overlying the distal right clavicle and bony deformities involving the posterior aspects of the right fourth and fifth ribs. Heart size is normal. There is no gross pneumothorax. Mild streaky bibasilar opacities may represent atelectasis/scar versus less likely pneumonia. Focal opacity overlying the anterior aspect of the left sixth rib, possibly related to focal parenchymal opacity versus bony process. XR/XR chest 2V IMPRESSION: Mild streaky bibasilar opacities may represent atelectasis/scar versus less likely pneumonia. Focal opacities overlying the anterior aspect of the left sixth rib, possibly related to focal parenchymal opacity versus bony process. Recommend follow-up imaging in 4-6 weeks to confirm resolution and exclude underlying pathology. Correlation with clinical exam recommended to determine further management. CT scan of the chest could be obtained if findings persist for this patient with cough.
== END 2023-07-15 14:53 | disposition home or self-care (01) ==
LOC: HO.XRAY 14:52
PROVIDERS: PCP Internal Medicine; Visit Provider Internal Medicine
DX: R05.9 Cough, unspecified (principal); R63.4 Abnormal weight loss
CPT/HCPCS: 71046

== ENCOUNTER 2023-07-23 08:05 | Outpatient (REF) | payer MEDICARE, OTHER, SELFPAY ==
[2023-07-23 11:32] LABS: MANUAL DIFF FLAG NO
[2023-07-23 12:00] LABS: Basophils Absolute Auto 0.1 X10*3/uL (0.0-0.2); Eosinophils Absolute Auto 0.3 X10*3/uL (0.0-0.4); Eosinophils Percent Auto 2.5 % (0-4); Hematocrit 45.7 % (42.0-52.0); Hemoglobin 14.7 g/dl (14.0-18.0); Imm Gran Abs Auto 0.05 X10*3/uL (0.00-0.03); Imm Gran Pct Auto 0.5 % (0.0-0.4); Lymphocytes Absolute Auto 0.9 X10*3/uL (1.2-4.9); Lymphocytes Percent Auto 8.1 % (20-40); Mean Corpuscular HGB Conc 32.2 g/dl (31.0-36.0); Mean Corpuscular Hemoglobin 29.8 pg (27.0-33.0); Mean Corpuscular Volume 92.5 fL (80.0-98.0); Mean Platelet Volume 9.5 fL (9.4-12.4); Monocytes Absolute Auto 1.2 X10*3/uL (0.1-1.2); Monocytes Percent Auto 10.7 % (2-11); Neutrophils Absolute Auto 8.4 x10*3/uL (2.0-8.3); Neutrophils Percent Auto 77.2 % (45-73); Platelet Count 214 X10*3/uL (160-400); Red Blood Count 4.94 X10*6/uL (4.60-5.80); White Blood Count 10.9 X10*3/uL (4.8-10.8)
[2023-07-23 12:04] LABS: Estimated Average Glucose 108 mg/dL; Hemoglobin A1c % 5.4 % (<6.0)
[2023-07-23 12:05] LABS: Appearance Urine Clear; Color Urine Yellow; Glucose Urine UA Negative (Negative); Leukocyte Esterase Urine Negative (Negative); Nitrite Urine Negative (Negative); Urine Blood Negative (Negative); Urine Ketones Negative (Negative); Urine Protein Negative (Neg-Trace)
[2023-07-23 12:28] LABS: Alanine Aminotransferase 17 U/L (0-40); Alkaline Phosphatase 64 U/L (39-117); Anion Gap 14 (12-20); Aspartate Amino Transferase 20 U/L (5-37); Bilirubin Total 0.5 mg/dL (0.0-1.0); Blood Urea Nitrogen 9 mg/dL (9-16); Calcium 9.4 mg/dL (8.4-10.2); Carbon Dioxide 26 mmol/L (22-29); Chloride 103 mmol/L (96-108); Cholesterol 119 mg/dL (<200); Estimated Glomerular Filt Rate > 60; Glucose Fasting 90 mg/dL (60-99); HDL Cholesterol 35 mg/dL (>40); LDL Cholesterol Calculated 65 mg/dL (<100); Sodium 139 mmol/L (135-145); Total Protein 6.9 g/dL (6.5-8.0); Triglycerides 95 mg/dL (<150)
[2023-07-23 12:29] LABS: TSH reflex Free T4 0.88 uIU/mL (0.32-4.0)
== END 2023-07-23 08:06 | disposition home or self-care (01) ==
LOC: HO.HMGCLDS 08:05
PROVIDERS: PCP Internal Medicine; Visit Provider Internal Medicine
DX: E78.00 Pure hypercholesterolemia, unspecified (principal); R30.0 Dysuria; I10 Essential (primary) hypertension; R73.01 Impaired fasting glucose; E55.9 Vitamin D deficiency, unspecified
CPT/HCPCS: 36415; 80053; 80061; 81003; 82306; 83036; 84443; 85025

== ENCOUNTER 2023-07-29 10:09 | Outpatient (AMB) | payer MEDICARE, OTHER, SELFPAY ==
[2023-07-29 10:12] VITALS: BP 120/78; PULSE 77; O2SAT 96; BMI 23.1
--- NOTE | 2023-07-29 10:12 | MHC.PC.OV ---
Vital Signs 07/29/23 10:12 Height 5 ft 9 in Weight 156 lb 6 oz BMI 23.1 BP 120/78 Blood Pressure Location Lt brachial Position Sitting Pulse 77 Pulse Source Pulse Oximeter Pulse Oximetry (%) 96 Oxygen Delivery Method Room Air Intake Visit Reasons: [facility] f/u Linotypist Required: No Accompanied by: Self / Same As Patient Allergies lactose [LACTOSE] Allergy (Unknown, Verified 07/29/23 11:13) INTOLERANT Medication List - Last Reconciled 07/29/23 by Sergio Ballesteros MD albuterol sulfate 90 mcg/actuation (ProAir HFA) 1 inh inhalation QID PRN cetirizine (Zyrtec) 10 mg PO DAILY cholecalciferol (vitamin D3) (Vitamin D3) 50 mcg PO DAILY citalopram 10 mg PO DAILY finasteride 1 tab PO DAILY losartan 25 mg PO DAILY melatonin 10 mg PO BEDTIME PRN multivitamin 1 tab PO DAILY omeprazole 40 mg PO DAILY simvastatin 20 mg PO BEDTIME tamsulosin 1 cap PO DAILY tiotropium-olodaterol 2.5-2.5 mcg/actuation (Stiolto Respimat) 2 puffs inhalation DAILY Tobacco use date assessed: 07/29/23 Fall risk assessment: No Falls in past year Last assessed Fall Risk: 07/29/23 Dental Screening Dental Screen Date: 07/29/23 Did you have a dental visit in the last 12 months?: No Did you have a dental problem in the last 6 months where you did not have access to dental care?: No Was dental information given to patient?: No HPI [facility] f/u HPI Details Patient comes in today for his follow up visit Patient went to a local walk-in clinic a few days ago on 07/26/23 for increasing cough and congestion for over a week Was diagnosed with strep pharyngitis and was started on Amoxicillin 500 mg BID, which he is still taking at present Feels that his symptoms have been gradually improving lately He denies any fever or sore throat He denies any headaches or dizziness Denies any chest pains, no SOB but chest still feels congested at times No nausea/vomiting, no abdominal pain No change in bowel habits noted Needs his Albuterol inhaler Rx refilled Had his follow up labs done last week - to discuss his results [facility] Medical History COVID-19 vaccine administered Pharyngitis Overweight (BMI 25.0-29.9) Anxiety History of esophageal cancer Vitamin D deficiency Lumbar degenerative disc disease Osteoarthritis Impaired fasting glucose AAA (abdominal aortic aneurysm) without rupture Benign essential hypertension Pure hypercholesterolemia Esophageal adenocarcinoma Pneumonia Aneurysm TIA (transient ischemic attack) COPD (chronic obstructive pulmonary disease) BPH (benign prostatic hyperplasia) Hypertension Surgical History History of shoulder surgery History of hip surgery History of bunionectomy of right great toe (~01/26/13) Hx of colonoscopy History of bunionectomy of left great toe (~02/2016) History of colonoscopy History of esophagectomy (~10/15/16) History of incisional hernia repair S/P AAA repair (~05/26/19) Family History Daughter Breast cancer Father Substance abuse Social History Household Members: Spouse Housing: [facility] Alcohol intake: current Alcohol intake frequency: holidays/special occasions only Alcohol type: beer Patient Tobacco Use Status: Former Tobacco user Quit Date: 1980 Tobacco use type: Cigarette Cigarette Packs Per Day: 2 e-Cigarette/Vaping Use: Never Used Second Hand Smoke Exposure: Yes service: Yes ([employer] and [place]) Current occupational status: retired Cognitive needs: No Hearing needs: Yes Vision needs: Yes Questionnaire PHQ-9 Over the last 2 weeks, how often have you been bothered by any of the following problems? 1. Little interest or pleasure in doing things: not at all 2. Feeling down, depressed, or hopeless: not at all 3. Trouble falling or staying asleep, or sleeping too much: not at all 4. Feeling tired or having little energy: not at all 5. Poor appetite or overeating: not at all 6. Feeling bad about yourself - or that you are a failure or have let yourself or your family down: not at all 7. Trouble concentrating on things, such as reading the newspaper or watching television: not at all 8. Moving or speaking so slowly that other people could have noticed. Or the opposite - being so fidgety or restless that you have been moving around a lot more than usual: not at all 9. Thoughts that you would be better off or of hurting yourself in some way: not at all Total score: 0 Depression Screening Interpretation: Negative Depression Screening Done: Yes 31409 - PHQ-9 Billing: Yes Source: Developed by Drs. David Chakraborty, Veronica Allan, Demetrio Roberts and colleagues, with an educational crys from [employer]. Thrive Questionnaire Date Thrive assessed: 07/29/23 I am a: Patient What is your living situation today?: I have a steady place to live Within the past 12 months, did the food you bought not last and you didn't have the money to get more?: Never true Within the past 12 months, did you worry whether your food would run out before you got money to buy more?: Never true Do you have trouble paying for medicines?: No Do you have trouble getting transportation to medical appointments?: No Do you have trouble paying your heating and electricity bill?: No Do you have trouble taking care of your child, family member or friend?: No Do you have trouble with day-to-day activities such as bathing, preparing meals, shopping, managing finances, etc.?: No Are you currently unemployed and looking for a job?: No Are you interested in more education?: No Please select the resources that you would like help with: None Currently or been in a relationship where the following occur: no concerns reported AUDIT C Alcohol Use Questionnaire (AUDIT-C) 1. How often do you have a drink containing alcohol?: Monthly or less 2. How many drinks containing alcohol do you have on a typical day when you are drinking?: 1 or 2 3. How often do you have six or more drinks on one occasion?: Never Total Score: 1 Score Reviewed/Action Taken: Yes SHRUTHI-7 AMB Questionnaire SHRUTHI-7 Date SHRUTHI - 7 assessed: 07/29/23 Feeling nervous, anxious, or on edge: 0 = Not at all Not being able to stop or control worryin = Not at all Worrying too much about different things: 0 = Not at all Trouble relaxin = Not at all Being so restless that it is hard to sit still: 0 = Not at all Becoming easily annoyed or irritable: 0 = Not at all Feeling afraid as if something awful might happen: 0 = Not at all Total SHRUTHI-7 score (0-4 normal; 5-9 mild; 10-14 moderate; 15-21 severe): 0 Source: Developed by Drs. David Chakraborty, Veronica Allan, Demetrio Roberts and colleagues, with an educational crys from [employer]. Review of Systems Const Denies fatigue, Denies fever(s) and Denies headache(s) ENT Denies dysphagia, Denies dizziness, Denies otalgia, Denies headache(s), Reports nasal congestion, Denies neck pain and Denies sore throat Card Denies chest pain, Denies palpitations and Denies dyspnea Resp Reports chest congestion, Reports cough (coughs up greenish phlegm), Denies dyspnea and Denies wheezing GI Denies abdominal pain, Denies constipation, Denies dysphagia, Denies heartburn, Denies diarrhea, Denies nausea and Denies vomiting Denies dysuria, Denies nocturia and Denies urinary frequency Musc Denies neck pain Skin/Breast Denies rash Neuro Denies dizziness and Denies headache(s) Endo Denies fatigue and Denies palpitations Aller/Immun Denies wheezing Physical exam (Primary Care) Vital Signs: Last Vital Signs Pulse 77 07/29/23 10:12 BP 120/78 07/29/23 10:12 Pulse Ox 96 07/29/23 10:12 Oxygen Delivery Method Room Air 07/29/23 10:12 BMI result Body Mass Index 23.1 Tobacco/Smoking Status: Tobacco use Status Tobacco use date assessed 07/29/23 07/29/23 10:14 Patient Tobacco Use Status Former Tobacco user 07/29/23 10:14 Tobacco use type Cigarette 07/29/23 10:14 e-Cigarette/Vaping Use Never Used 07/29/23 10:14 PHQ-9: PHQ-9 Score PHQ-9: Total score 0 08/04/23 00:00 Depression Screening Interpretation: Negative Thrive Assessment: Date of Thrive Assessment Date Thrive assessed 07/29/23 07/29/23 10:14 Currently or been in a relationship where the following occur: no concerns reported Const General: no acute distress and alert HENMT Ears: TM's normal bilaterally and EAC's normal Throat: Yes posterior oropharynx normal and Yes tonsils normal (no TP congestion noted) Neck Neck: Yes no lymphadenopathy and Yes supple Resp Auscultation: no rales, rhonchi (scattered) throughout, no wheezes, diminished lung sounds bilateral and bronchial breath sounds Cardio Rate: regular rate Rhythm: regular rhythm Heart sounds: no murmurs GI Palpation (GI): Soft to palpation and nontender Auscultation: normal bowel sounds Skin Rashes: no rashes Extrem General: Yes no clubbing, cyanosis or edema Results Reviewed Results Reviewed: Laboratory Tests 07/23/23 07/23/23 07/23/23 08:13 08:13 08:13 WBC 10.9 H Hgb 14.7 Hct 45.7 Plt Count 214 Sodium 139 Potassium 4.0 Creatinine 0.76 Estimated GFR > 60 Fasting Glucose 90 Hemoglobin A1c % 5.4 Calcium 9.4 AST 20 ALT 17 Triglycerides 95 Cholesterol 119 LDL Cholesterol, Calc 65 HDL Cholesterol 35 L 25-OH Vitamin D Total 59.0 TSH 0.88 Ur Specific [place] Urine Protein Urine Glucose (UA) Urine Blood 07/23/23 07/23/23 08:20 08:20 WBC Hgb Hct Plt Count Sodium Potassium Creatinine Estimated GFR Fasting Glucose Hemoglobin A1c % Calcium AST ALT Triglycerides Cholesterol LDL Cholesterol, Calc HDL Cholesterol 25-OH Vitamin D Total TSH Ur Specific [place] 1.010 Urine Protein Negative Urine Glucose (UA) Negative Urine Blood Negative Assessment and Plan Assessment & Plan (1) Benign essential hypertension: Code(s): I10 - Essential (primary) hypertension Plan: Reinforced low-sodium diet - goal is systolic BP of at least 140 mm or less Patient's BP remains very well-controlled Continue Losartan 25 mg QD (2) Pure hypercholesterolemia: Code(s): E78.00 - Pure hypercholesterolemia, unspecified Plan: Results of his labs done last week reviewed and discussed with patient Reinforced low cholesterol diet Continue Simvastatin 20 mg QD Will recheck his labs and fasting lipids in 4 months for follow-up (3) Impaired fasting glucose: Code(s): R73.01 - Impaired fasting glucose Plan: HgbA1c remains normal at 5.4% on his labs done last week; was also at 5.4% a few months ago FBS was normal at 90 mg/dl Reinforced low calorie diet / exercise as tolerated (4) COPD exacerbation: Code(s): J44.1 - Chronic obstructive pulmonary disease with (acute) exacerbation Plan: Continue Amoxicillin 500 mg BID Continue Stiolto Respimat 2.5 mcg 2 puffs QD and Albuterol HFA 2 puffs 4 times a day PRN Patient is advised to call if his symptoms persist or get worse over the next few days despite his current Rx Follow up with pulmonary as scheduled (5) AAA (abdominal aortic aneurysm) without rupture: Comment: S/P AAA repair at [facility] on 01/24/2019 - (+) aortoiliac stent graft over infrarenal AAA Code(s): I71.4 - Abdominal aortic aneurysm, without rupture Qualifiers: Abdominal aorta location: unspecified Qualified Code(s): I71.40 - Abdominal aortic aneurysm, without rupture, unspecified Plan: S/P surgical repair of endoleak over his aortoiliac stent graft on 03/03/[address] Dockery at [facility] Follow up with vascular surgery as scheduled for continuing management and surveillance (6) Vitamin D deficiency: Code(s): E55.9 - Vitamin D deficiency, unspecified Plan: Corrected Was on Vitamin D3 2000 units QD but he was advised to HOLD his Vitamin D at his last visit as his level was going up too high and he was at slightly over 120 ng/ml previous Repeat Vitamin D level is now at 59 ng/ml Will have patient try going back on his Vitamin D 2000 units but instructed to just take it every other day Will recheck his Vitamin D level in 4 months for follow up (7) Lumbar degenerative disc disease: Code(s): M51.36 - Other intervertebral disc degeneration, lumbar region Plan: Reinforced activity and weight lifting restrictions to avoid aggravating his low back pain (8) Osteoarthritis: Code(s): M19.90 - Unspecified osteoarthritis, unspecified site Qualifiers: Osteoarthritis location: unspecified site Osteoarthritis type: primary Qualified Code(s): M19.91 - Primary osteoarthritis, unspecified site Plan: Reinforced regular exercise to help minimize his joint pains and stiffness (9) History of esophageal cancer: Comment: S/P [place] [facility] esophagectomy on 10/15/2016 Code(s): Z85.01 - Personal history of malignant neoplasm of esophagus Plan: Continue Omeprazole [address] done last year reportedly showed no evidence of metastatic disease Follow-up with Oncology (Dr. Delarosa) as scheduled for continuing surveillance - sees Dr. Delarosa once a year now (10) Anxiety: Code(s): F41.9 - Anxiety disorder, unspecified Plan: Continue Citalopram 10 mg QD Plan Follow up in 4 months Orders: Orders Complete Blood Count Auto Diff 4 Months I10 - Essential (primary) hypertension Comprehensive [place]. Panel Fast 4 Months E78.00 - Pure hypercholesterolemia, unspecified TSH reflex Free T4 4 Months E78.00 - Pure hypercholesterolemia, unspecified UA CC w/rflx Micro + Cult 4 Months R30.0 - Dysuria Vitamin D 25-OH Total 4 Months E55.9 - Vitamin D deficiency, unspecified Lipid Panel 4 Months E78.00 - Pure hypercholesterolemia, unspecified Medications: Changed From albuterol sulfate 90 mcg/actuation 1 inh inhalation QID PRN 8.5 grams 0RF Wheezing J44.9 - Chronic obstructive pulmonary disease, unspecified To albuterol sulfate 90 mcg/actuation (ProAir HFA) 2 inhalations inhalation Q6H PRN 8.5 grams 3RF shortness of breath or wheezing J44.9 - Chronic obstructive pulmonary disease, unspecified Coding Level of Care Code Est Pt Level 4 (18257) Diagnoses Benign essential hypertension I10 Pure hypercholesterolemia E78.00 Impaired fasting glucose R73.01 COPD exacerbation J44.1 Abdominal aortic aneurysm (AAA) without rupture, unspecified part I71.40 Abdominal aorta location: unspecified Vitamin D deficiency E55.9 Lumbar degenerative disc disease M51.36 Primary osteoarthritis, unspecified site M19.91 Osteoarthritis location: unspecified site Osteoarthritis type: primary History of esophageal cancer Z85.01 Anxiety F41.9
== END 2023-07-29 11:50 | disposition home or self-care (01) ==
PROVIDERS: PCP Internal Medicine; Visit Provider Internal Medicine
DX: J44.1 Chronic obstructive pulmonary disease with (acute) exacerbation (principal); I71.40 Abdominal aortic aneurysm, without rupture, unspecified; I10 Essential (primary) hypertension; E78.00 Pure hypercholesterolemia, unspecified; R73.01 Impaired fasting glucose; E55.9 Vitamin D deficiency, unspecified; M51.36 Other intervertebral disc degeneration, lumbar region; M19.91 Primary osteoarthritis, unspecified site; Z85.01 Personal history of malignant neoplasm of esophagus; F41.9 Anxiety disorder, unspecified
CPT/HCPCS: 99214

== ENCOUNTER 2023-08-24 15:35 | Outpatient (REF) | payer MEDICARE, OTHER, SELFPAY ==
--- NOTE | ~2023-08-24 | CT_ITS ---
EXAMINATION: CT CHEST, ABDOMEN AND PELVIS WITH CONTRAST CLINICAL INFORMATION: Weight loss; history of cancer. COMPARISON: Chest radiograph dated 02/24/2017; barium swallow dated 05/20/2016; abdominal ultrasound dated 10/23/2018. TECHNIQUE: Multidetector volumetric imaging was performed from the thoracic inlet through the pubic symphysis following administration of 85 mL Omnipaque 350 intravenous contrast. Sagittal and coronal reformatted images were obtained on the technologist workstation. This CT examination was performed using dose optimization techniques as appropriate, variously including the following: *Automated exposure control. *Adjustment of mA and/or kV according to patient size (this includes techniques or standardized protocols for targeted exams where dose is matched to indication/reason for exam, i.e., extremities or head). *Use of iterative reconstruction technique. DLP: 115 mGy-cm. FINDINGS: CHEST: LUNGS: There are a few scattered benign, calcified granulomas. No noncalcified nodule, mass, infiltrate or groundglass opacity is seen. There is a small focus of peripheral linear scar/subsegmental atelectasis seen posteriorly within the right upper lobe. There is mild scar/subsegmental atelectasis at the bases. There is mild small airway thickening, with a lower lobe predominance. The central airways appear patent. MEDIASTINUM: The thyroid is unremarkable. There is no thoracic aortic aneurysm or dissection. There are mild atherosclerotic calcifications of the great vessel origins, thoracic aorta and coronary arteries. No mediastinal or hilar lymphadenopathy is seen. There has been a prior gastric pull-through procedure. PERICARDIUM/PLEURA: There is no significant effusion. No pleural mass or thickening. CHEST WALL/AXILLA: Unremarkable. ABDOMEN/PELVIS: LIVER, GALLBLADDER, BILIARY TREE: The liver is normal in size, shape and generally diminished in attenuation. No focal hepatic lesion or biliary ductal dilatation is present. The gallbladder is unremarkable with no evidence of radiopaque gallstones, gallbladder wall thickening, or pericholecystic inflammatory changes. PANCREAS: Unremarkable. SPLEEN: Unremarkable. ADRENAL GLANDS: Unremarkable. KIDNEYS AND URETERS: The kidneys are normal in size, shape, and attenuation. At the upper pole of the right kidney (3:23), an 8 mm nonobstructing calculus is seen. No further urinary calculus is seen, and there is no obstructive uropathy noted bilaterally. At the lower pole of the left kidney (3:29), a 4.2 cm benign, simple cyst is seen, for which no imaging follow-up is recommended. No perinephric stranding. BLADDER: Unremarkable. GASTROINTESTINAL TRACT: There is moderately severe diverticulosis, without acute diverticulitis. No obstruction, free intraperitoneal air or abscess is seen. There is no focal bowel wall thickening. The vermiform appendix is not identified with certainty; however, there is no finding to suggest appendicitis. ABDOMINAL WALL: No significant hernia is demonstrated. LYMPH NODES: Normal. VASCULAR: An abdominal aortic aneurysm is seen, with dimensions of 6.8 x 5.2 cm (3:40 and 4:37). There is a patent aortobiiliac stent graft. There is contrast noted within the excluded aneurysm, suggesting a possible endoleak. PELVIC VISCERA: Anteriorly within the prostate gland abutting the base of the bladder, a 5 mm enhancing nodule is seen (3:72 and 5:52). The seminal vesicles are unremarkable. OSSEOUS STRUCTURES: There is multi-level thoracolumbar degenerative disc disease and spondylosis. No acute or aggressive osseous finding is seen. CT/CT abdomen pelvis w IV con IMPRESSION: 1. There has been a prior gastric pull-through procedure. There is adjacent mild bibasilar scar/subsegmental atelectasis. 2. There is bilateral small airway thickening, most pronounced at the bases. This is likely infectious or inflammatory in etiology. 3. No pulmonary noncalcified nodule, mass, infiltrate or groundglass opacity is seen. 4. There is no thoracic lymphadenopathy or pleural effusion. 5. There are mild coronary artery atherosclerotic calcifications. 6. There is hepatic steatosis. 7. An 8 mm nonobstructing right renal calculus is seen. 8. There is moderately severe diverticulosis, without acute diverticulitis. 9. An abdominal aortic aneurysm is seen, status-post post stent graft placement. There is extravasated contrast within the aneurysm lumen, suggesting a possible endoleak. Elective Vascular Surgery evaluation and management are recommended. 10. A 5 mm enhancing prostate nodule is seen. Recommend correlation with the patient's most recent PSA level. This could be more fully evaluated with prostate MRI, if clinically indicated. 11. There are degenerative changes of the thoracolumbar spine. No aggressive osseous lesion is seen.
[2023-08-24] MEDS: iohexoL 350 MG/ML 100 ML INFUS..BTL 85 ML IV (16:54)
== END 2023-08-24 15:36 | disposition home or self-care (01) ==
LOC: HO.CT 15:35
PROVIDERS: PCP Internal Medicine; Visit Provider Internal Medicine
DX: C15.9 Malignant neoplasm of esophagus, unspecified (principal); R63.4 Abnormal weight loss
CPT/HCPCS: 71260; 74177; Q9967

== ENCOUNTER 2023-11-24 09:10 | Outpatient (REF) | payer MEDICARE, OTHER, SELFPAY ==
[2023-11-24 10:18] LABS: Appearance Urine Clear; Color Urine Yellow; Glucose Urine UA Negative (Negative); Leukocyte Esterase Urine Negative (Negative); Nitrite Urine Negative (Negative); Urine Blood Negative (Negative); Urine Ketones Negative (Negative); Urine Protein Negative (Neg-Trace)
[2023-11-24 10:21] LABS: MANUAL DIFF FLAG NO
[2023-11-24 10:39] LABS: Basophils Absolute Auto 0.1 X10*3/uL (0.0-0.2); Basophils Percent Auto 1.1 % (0-2); Eosinophils Absolute Auto 0.2 X10*3/uL (0.0-0.4); Eosinophils Percent Auto 2.8 % (0-4); Hematocrit 43.6 % (42.0-52.0); Hemoglobin 14.5 g/dl (14.0-18.0); Imm Gran Abs Auto 0.02 X10*3/uL (0.00-0.03); Imm Gran Pct Auto 0.3 % (0.0-0.4); Lymphocytes Absolute Auto 0.9 X10*3/uL (1.2-4.9); Lymphocytes Percent Auto 11.6 % (20-40); Mean Corpuscular HGB Conc 33.3 g/dl (31.0-36.0); Mean Corpuscular Hemoglobin 30.2 pg (27.0-33.0); Mean Corpuscular Volume 90.8 fL (80.0-98.0); Mean Platelet Volume 9.3 fL (9.4-12.4); Monocytes Absolute Auto 0.8 X10*3/uL (0.1-1.2); Monocytes Percent Auto 10.6 % (2-11); Neutrophils Absolute Auto 5.9 x10*3/uL (2.0-8.3); Neutrophils Percent Auto 73.6 % (45-73); Platelet Count 184 X10*3/uL (160-400); Red Cell Distribution Width 15.3 % (11.0-16.0); White Blood Count 7.9 X10*3/uL (4.8-10.8)
[2023-11-24 10:55] LABS: Alanine Aminotransferase 17 U/L (0-40); Albumin Level 3.9 g/dL (3.5-5.0); Alkaline Phosphatase 61 U/L (39-117); Anion Gap 11 (12-20); Aspartate Amino Transferase 17 U/L (5-37); Bilirubin Total 0.5 mg/dL (0.0-1.0); Blood Urea Nitrogen 13 mg/dL (9-16); Calcium 9.2 mg/dL (8.4-10.2); Carbon Dioxide 27 mmol/L (22-29); Chloride 106 mmol/L (96-108); Cholesterol 122 mg/dL (<200); Estimated Glomerular Filt Rate > 60; Glucose Fasting 97 mg/dL (60-99); HDL Cholesterol 39 mg/dL (>40); LDL Cholesterol Calculated 69 mg/dL (<100); Potassium 4.3 mmol/L (3.3-5.1); Sodium 140 mmol/L (135-145); Total Protein 6.4 g/dL (6.5-8.0); Triglycerides 73 mg/dL (<150)
[2023-11-24 11:23] LABS: TSH reflex Free T4 1.02 uIU/mL (0.32-4.0); Vitamin D 25-OH Total 68.8 ng/mL (>30)
== END 2023-11-24 09:11 | disposition home or self-care (01) ==
LOC: HO.HMGCLDS 09:10
PROVIDERS: PCP Internal Medicine; Visit Provider Internal Medicine
DX: I10 Essential (primary) hypertension (principal); R30.0 Dysuria; E78.00 Pure hypercholesterolemia, unspecified; E55.9 Vitamin D deficiency, unspecified
CPT/HCPCS: 36415; 80053; 80061; 81003; 82306; 84443; 85025

== ENCOUNTER 2023-12-03 11:05 | Outpatient (AMB) | payer MEDICARE, OTHER, SELFPAY ==
[2023-12-03 11:13] VITALS: BP 106/62; PULSE 62; O2SAT 98; BMI 22.7
--- NOTE | 2023-12-03 11:13 | A.OFFPC_ITS ---
Vital Signs 12/03/23 11:13 Height 5 ft 9 in Weight 154 lb BMI 22.7 BP 106/62 Blood Pressure Location Lt brachial Position Sitting Pulse 62 Pulse Source Pulse Oximeter Pulse Oximetry (%) 98 Oxygen Delivery Method Room Air Intake Visit Reasons: HTH,hyperlipidemia,anxiety,Hx of esophageal cancer Allergies lactose [LACTOSE] Allergy (Unknown, Verified 12/03/23 11:31) INTOLERANT Medication List - Last Reconciled 12/03/23 by Sergio Ballesteros MD albuterol sulfate 90 mcg/actuation (ProAir HFA) 2 inhalations inhalation Q6H PRN barium sulfate 2%(w/v) (Readi-Cat 2) 450 mL PO DAILY cetirizine (Zyrtec) 10 mg PO DAILY cholecalciferol (vitamin D3) (Vitamin D3) 50 mcg PO DAILY citalopram 10 mg PO DAILY finasteride 1 tab PO DAILY losartan 25 mg PO DAILY melatonin 10 mg PO BEDTIME PRN multivitamin 1 tab PO DAILY omeprazole 40 mg PO DAILY simvastatin 20 mg PO BEDTIME tamsulosin 1 cap PO DAILY tiotropium-olodaterol 2.5-2.5 mcg/actuation (Stiolto Respimat) 2 puffs inhalation DAILY Tobacco use date assessed: 07/29/23 Last assessed Fall Risk: 12/03/23 Dental Screening Dental Screen Date: 12/03/23 Did you have a dental visit in the last 12 months?: No Did you have a dental problem in the last 6 months where you did not have access to dental care?: No Was dental information given to patient?: Patient has dentist HPI HTH,hyperlipidemia,anxiety,Hx of esophageal cancer HPI Details Patient comes in today for his follow up visit States that he has noticed that he seems to be burping often lately; he denies any heartburns or any other acute GI symptoms or discomfort States that he has been taking some Probiotics and eating a lot of yogurt lately and he has been advised to try not eating the yogurts for a few days to see if his frequent burping will stop States that he feels okay otherwise He denies any headaches or dizziness Denies any chest pains, no SOB No nausea/vomiting, no abdominal pain No change in bowel habits noted Had his follow up labs done last week - to discuss his results [facility] Medical History COVID-19 vaccine administered Pharyngitis Overweight (BMI 25.0-29.9) Anxiety History of esophageal cancer Vitamin D deficiency Lumbar degenerative disc disease Osteoarthritis Impaired fasting glucose AAA (abdominal aortic aneurysm) without rupture Benign essential hypertension Pure hypercholesterolemia Esophageal adenocarcinoma Pneumonia Aneurysm TIA (transient ischemic attack) COPD (chronic obstructive pulmonary disease) BPH (benign prostatic hyperplasia) Hypertension Surgical History History of shoulder surgery History of hip surgery History of bunionectomy of right great toe (~01/26/13) Hx of colonoscopy History of bunionectomy of left great toe (~02/2016) History of colonoscopy History of esophagectomy (~10/15/16) History of incisional hernia repair S/P AAA repair (~05/26/19) Family History Daughter Breast cancer Father Substance abuse Social History Household Members: Spouse [facility] Alcohol intake: current Alcohol intake frequency: holidays/special occasions only Alcohol type: beer Patient Tobacco Use Status: Former Tobacco user Quit Date: 1980 Tobacco use type: Cigarette Cigarette Packs Per Day: 2 e-Cigarette/Vaping Use: Never Used Second Hand Smoke Exposure: Yes service: Yes ([employer]) Current occupational status: retired Cognitive needs: No Hearing needs: Yes Vision needs: Yes (glasses) Questionnaire PHQ-9 Over the last 2 weeks, how often have you been bothered by any of the following problems? 1. Little interest or pleasure in doing things: not at all 2. Feeling down, depressed, or hopeless: not at all 3. Trouble falling or staying asleep, or sleeping too much: not at all 4. Feeling tired or having little energy: not at all 5. Poor appetite or overeating: not at all 6. Feeling bad about yourself - or that you are a failure or have let yourself or your family down: not at all 7. Trouble concentrating on things, such as reading the newspaper or watching television: not at all 8. Moving or speaking so slowly that other people could have noticed. Or the opposite - being so fidgety or restless that you have been moving around a lot more than usual: not at all 9. Thoughts that you would be better off or of hurting yourself in some way: not at all Total score: 0 Depression Screening Interpretation: Negative Depression Screening Done: Yes 13705 - PHQ-9 Billing: Yes Source: Developed by Drs. David Chakraborty, Veronica Allan, Demetrio Roberts and colleagues, with an educational crys from [employer]. Thrive Questionnaire Date Thrive assessed: 12/03/23 I am a: Patient What is your living situation today?: I have a steady place to live Within the past 12 months, did the food you bought not last and you didn't have the money to get more?: Never true Within the past 12 months, did you worry whether your food would run out before you got money to buy more?: Never true Do you have trouble paying for medicines?: No Do you have trouble getting transportation to medical appointments?: No Do you have trouble paying your heating and electricity bill?: No Do you have trouble taking care of your child, family member or friend?: No Do you have trouble with day-to-day activities such as bathing, preparing meals, shopping, managing finances, etc.?: No Are you currently unemployed and looking for a job?: No Are you interested in more education?: No Please select the resources that you would like help with: None Currently or been in a relationship where the following occur: no concerns reported THRIVE Score: 0 AUDIT C Alcohol Use Questionnaire (AUDIT-C) 1. How often do you have a drink containing alcohol?: Monthly or less 2. How many drinks containing alcohol do you have on a typical day when you are drinking?: 1 or 2 3. How often do you have six or more drinks on one occasion?: Never Total Score: 1 Score Reviewed/Action Taken: Yes SHRUTHI-7 AMB Questionnaire SHRUTHI-7 Date SHRUTHI - 7 assessed: 12/03/23 Feeling nervous, anxious, or on edge: 0 = Not at all Not being able to stop or control worryin = Not at all Worrying too much about different things: 0 = Not at all Trouble relaxin = Not at all Being so restless that it is hard to sit still: 0 = Not at all Becoming easily annoyed or irritable: 0 = Not at all Feeling afraid as if something awful might happen: 0 = Not at all Total SHRUTHI-7 score (0-4 normal; 5-9 mild; 10-14 moderate; 15-21 severe): 0 Source: Developed by Drs. David Chakraborty, Veronica Allan, Demetrio Roberts and colleagues, with an educational crys from [employer]. Review of Systems Const Denies chills, Denies fatigue, Denies fever(s) and Denies headache(s) ENT Denies dysphagia, Denies dizziness, Denies otalgia, Denies headache(s), Denies nasal congestion, Denies neck pain, Denies odynophagia and Denies sore throat Card Denies chest pain, Denies palpitations and Denies dyspnea Resp Denies chest congestion, Denies cough, Denies dyspnea and Denies wheezing GI Denies abdominal pain, Reports belching (lately), Denies constipation, Denies dysphagia, Denies heartburn, Denies diarrhea, Denies nausea, Denies odynophagia and Denies vomiting Denies dysuria, Denies nocturia and Denies urinary frequency Musc Denies back pain and Denies neck pain Skin/Breast Denies rash Neuro Denies dizziness and Denies headache(s) Endo Denies fatigue and Denies palpitations Aller/Immun Denies wheezing Physical exam (Primary Care) Vital Signs: Last Vital Signs Pulse 62 12/03/23 11:13 BP 106/62 12/03/23 11:13 Pulse Ox 98 12/03/23 11:13 Oxygen Delivery Method Room Air 12/03/23 11:13 BMI result Body Mass Index 22.7 Tobacco/Smoking Status: Tobacco use Status Tobacco use date assessed 07/29/23 12/03/23 11:13 Patient Tobacco Use Status Former Tobacco user 12/03/23 11:13 Tobacco use type Cigarette 12/03/23 11:13 e-Cigarette/Vaping Use Never Used 12/03/23 11:13 PHQ-9: PHQ-9 Score PHQ-9: Total score 0 12/03/23 11:46 Depression Screening Interpretation: Negative Thrive Assessment: Date of Thrive Assessment Date Thrive assessed 12/03/23 12/03/23 11:15 Currently or been in a relationship where the following occur: no concerns reported Const General: no acute distress and alert HENMT Ears: TM's normal bilaterally and EAC's normal Throat: Yes posterior oropharynx normal and Yes tonsils normal (no TP congestion noted) Neck Neck: Yes no lymphadenopathy and Yes supple Thyroid: Thyroid normal Resp Auscultation: clear to auscultation bilaterally, no rales, no wheezes and diminished lung sounds (slightly) bilateral Cardio Rate: regular rate Rhythm: regular rhythm Heart sounds: no murmurs GI Palpation (GI): Soft to palpation and nontender Auscultation: normal bowel sounds General: Yes no CVA tenderness Back/Spine/Pelvis Back: no CVA tenderness Skin Rashes: no rashes Extrem General: Yes no clubbing, cyanosis or edema Results Reviewed Results Reviewed: Laboratory Tests 11/24/23 09:18 WBC 7.9 Hgb 14.5 Hct 43.6 Plt Count 184 Sodium 140 Potassium 4.3 Creatinine 0.75 Estimated GFR > 60 Fasting Glucose 97 Calcium 9.2 AST 17 ALT 17 Triglycerides 73 Cholesterol 122 LDL Cholesterol, Calc 69 HDL Cholesterol 39 L 25-OH Vitamin D Total 68.8 TSH 1.02 Ur Specific [place] 1.010 Urine Protein Negative Urine Glucose (UA) Negative Urine Blood Negative Urine Nitrite Negative Ur Leukocyte Esterase Negative Assessment and Plan Assessment & Plan (1) Pure hypercholesterolemia: Code(s): E78.00 - Pure hypercholesterolemia, unspecified Plan: Results of his labs done last week reviewed and discussed with patient Reinforced low cholesterol diet Continue Simvastatin 20 mg QD Will recheck his labs and fasting lipids in 4 months for follow-up (2) Benign essential hypertension: Code(s): I10 - Essential (primary) hypertension Plan: Reinforced low-sodium diet - goal is systolic BP of at least 140 mm or less Patient's BP remains very well-controlled Continue Losartan 25 mg QD (3) Impaired fasting glucose: Code(s): R73.01 - Impaired fasting glucose Plan: HgbA1c has been normal at 5.4% when checked a few times in the past FBS was normal at 97 mg/dl on his recent labs Reinforced low calorie diet / exercise as tolerated (4) COPD (chronic obstructive pulmonary disease): Code(s): J44.9 - Chronic obstructive pulmonary disease, unspecified Qualifiers: COPD type: unspecified COPD Qualified Code(s): J44.9 - Chronic obstructive pulmonary disease, unspecified Plan: Stable/controlled currently Continue Stiolto Respimat 2.5 mcg 2 puffs QD and Albuterol HFA 2 puffs 4 times a day PRN Follow up with pulmonary as scheduled (5) AAA (abdominal aortic aneurysm) without rupture: Comment: S/P AAA repair at [facility] on 01/24/2019 - (+) aortoiliac stent graft over infrarenal AAA Code(s): I71.4 - Abdominal aortic aneurysm, without rupture Qualifiers: Abdominal aorta location: unspecified Qualified Code(s): I71.40 - Abdominal aortic aneurysm, without rupture, unspecified Plan: S/P surgical repair of endoleak over his aortoiliac stent graft on 03/03/[address] Dock[address] at [facility] He has been doing well since with no acute issues Follow up with vascular surgery as scheduled for continuing management and surveillance (6) Vitamin D deficiency: Code(s): E55.9 - Vitamin D deficiency, unspecified Plan: Continue Vitamin D 2000 units every other day Will recheck his Vitamin D level in 4 months for follow up (7) Lumbar degenerative disc disease: Code(s): M51.36 - Other intervertebral disc degeneration, lumbar region Plan: Reinforced activity and weight lifting restrictions to avoid aggravating his low back pain (8) Osteoarthritis: Code(s): M19.90 - Unspecified osteoarthritis, unspecified site Qualifiers: Osteoarthritis location: unspecified site Osteoarthritis type: primary Qualified Code(s): M19.91 - Primary osteoarthritis, unspecified site Plan: States that his joint pains have been mostly manageable Reinforced regular exercise to help minimize his joint pains and stiffness (9) History of esophageal cancer: Comment: S/P Colin Jnai esophagectomy on 10/15/2016 Code(s): Z85.01 - Personal history of malignant neoplasm of esophagus Plan: Continue Omeprazole [address] done last year reportedly showed no evidence of metastatic disease Follow-up with Oncology (Dr. Delarosa) as scheduled for continuing surveillance - sees Dr. Delarosa once a year now (10) Anxiety: Code(s): F41.9 - Anxiety disorder, unspecified Plan: Continue Citalopram 10 mg QD Plan Follow up in 4 months Coding Level of Care Code Est Pt Level 4 (53160) Diagnoses Pure hypercholesterolemia E78.00 Benign essential hypertension I10 Impaired fasting glucose R73.01 Chronic obstructive pulmonary disease, unspecified COPD type J44.9 COPD type: unspecified COPD Abdominal aortic aneurysm (AAA) without rupture, unspecified part I71.40 Abdominal aorta location: unspecified Vitamin D deficiency E55.9 Lumbar degenerative disc disease M51.36 Primary osteoarthritis, unspecified site M19.91 Osteoarthritis location: unspecified site Osteoarthritis type: primary History of esophageal cancer Z85.01 Anxiety F41.9
== END 2023-12-03 12:11 | disposition home or self-care (01) ==
PROVIDERS: PCP Internal Medicine; Visit Provider Internal Medicine
DX: J44.9 Chronic obstructive pulmonary disease, unspecified (principal); I71.40 Abdominal aortic aneurysm, without rupture, unspecified; E78.00 Pure hypercholesterolemia, unspecified; I10 Essential (primary) hypertension; R73.01 Impaired fasting glucose; E55.9 Vitamin D deficiency, unspecified; M51.36 Other intervertebral disc degeneration, lumbar region; M19.91 Primary osteoarthritis, unspecified site; Z85.01 Personal history of malignant neoplasm of esophagus; F41.9 Anxiety disorder, unspecified
CPT/HCPCS: 99214

== ENCOUNTER 2024-03-09 10:25 | Outpatient (AMB) | payer MEDICARE, OTHER, SELFPAY ==
[2024-03-09 10:43] VITALS: BP 108/68; PULSE 68; O2SAT 95; BMI 22.4
--- NOTE | 2024-03-09 10:43 | A.OFFPC_ITS ---
Vital Signs 03/09/24 10:43 Height 5 ft 9 in Weight 152 lb BMI 22.4 BP 108/68 Blood Pressure Location Lt brachial Position Sitting Pulse 68 Pulse Source Pulse Oximeter Pulse Oximetry (%) 95 Oxygen Delivery Method Room Air Intake Visit Reasons: COPD, hyperlipidemia, HTN, IFG Orthopedic Physician Required: No Allergies lactose [LACTOSE] Allergy (Unknown, Verified 03/09/24 11:22) INTOLERANT Medication List - Last Reconciled 03/09/24 by Sergio Ballesteros MD albuterol sulfate 90 mcg/actuation (ProAir HFA) 2 inhalations inhalation Q6H PRN barium sulfate 2%(w/v) (Readi-Cat 2) 450 mL PO DAILY cetirizine (Zyrtec) 10 mg PO DAILY cholecalciferol (vitamin D3) (Vitamin D3) 50 mcg PO DAILY citalopram 10 mg PO DAILY finasteride 1 tab PO DAILY losartan 25 mg PO DAILY melatonin 10 mg PO BEDTIME PRN multivitamin 1 tab PO DAILY omeprazole 40 mg PO DAILY simvastatin 20 mg PO BEDTIME tamsulosin 1 cap PO DAILY tiotropium-olodaterol 2.5-2.5 mcg/actuation (Stiolto Respimat) 2 puffs inhalation DAILY Tobacco use date assessed: 03/09/24 Fall risk assessment: No Falls in past year Last assessed Fall Risk: 03/09/24 Dental Screening Dental Screen Date: 12/03/23 HPI COPD, hyperlipidemia, HTN, IFG HPI Details Patient comes in today for his follow up visit States that he feels okay He denies any headaches or dizziness Denies any chest pains, no SOB No nausea/vomiting, no abdominal pain No change in bowel habits noted States that he went to the lab a few days ago but was advised that there were no active lab orders in his chart at the time so he currently does not have any follow up labs done [facility] Medical History (Updated 03/09/24 @ 11:51 by Sergio Ballesteros MD) COVID-19 vaccine administered Overweight (BMI 25.0-29.9) Anxiety History of esophageal cancer Vitamin D deficiency Lumbar degenerative disc disease Osteoarthritis Impaired fasting glucose AAA (abdominal aortic aneurysm) without rupture Benign essential hypertension Pure hypercholesterolemia Esophageal adenocarcinoma Pneumonia Aneurysm TIA (transient ischemic attack) COPD (chronic obstructive pulmonary disease) BPH (benign prostatic hyperplasia) Surgical History History of shoulder surgery History of hip surgery History of bunionectomy of right great toe (~01/26/13) Hx of colonoscopy History of bunionectomy of left great toe (~02/2016) History of colonoscopy History of esophagectomy (~10/15/16) History of incisional hernia repair S/P AAA repair (~05/26/19) Family History Daughter Breast cancer Father Substance abuse Social History Household Members: [facility] Alcohol intake: current Alcohol intake frequency: holidays/special occasions only Alcohol type: beer Patient Tobacco Use Status: Former Tobacco user Tobacco use type: Cigarette Cigarette Packs Per Day: 2 e-Cigarette/Vaping Use: Never Used Second Hand Smoke Exposure: Yes service: Yes ([employer]) Current occupational status: retired Cognitive needs: No Hearing needs: Yes Vision needs: Yes (glasses) Questionnaire Thrive Questionnaire Date Thrive assessed: 12/03/23 AUDIT C Alcohol Use Questionnaire (AUDIT-C) 1. How often do you have a drink containing alcohol?: Monthly or less 2. How many drinks containing alcohol do you have on a typical day when you are drinking?: 1 or 2 3. How often do you have six or more drinks on one occasion?: Never Total Score: 1 Score Reviewed/Action Taken: Yes SHRUTHI-7 AMB Questionnaire SHRUTHI-7 Date SHRUTHI - 7 assessed: 12/03/23 Source: Developed by Drs. David Chakraborty, Veronica Allan, Demetrio Roberts and colleagues, with an educational crys from [email or web address]. Review of Systems Const Denies chills, Denies fatigue, Denies fever(s) and Denies headache(s) ENT Denies dysphagia, Denies dizziness, Denies otalgia, Denies headache(s), Denies neck pain, Denies odynophagia and Denies sore throat Card Denies chest pain, Denies palpitations and Denies dyspnea Resp Denies chest congestion, Denies cough, Denies dyspnea and Denies wheezing GI Denies abdominal pain, Denies constipation, Denies dysphagia, Denies heartburn, Denies diarrhea, Denies nausea, Denies odynophagia and Denies vomiting Denies dysuria, Denies nocturia and Denies urinary frequency Musc Denies back pain, Denies arthralgias and Denies neck pain Skin/Breast Denies rash Neuro Denies dizziness and Denies headache(s) Endo Denies fatigue and Denies palpitations Aller/Immun Denies wheezing Physical exam (Primary Care) Vital Signs: Last Vital Signs Pulse 68 03/09/24 10:43 BP 108/68 03/09/24 10:43 Pulse Ox 95 03/09/24 10:43 Oxygen Delivery Method Room Air 03/09/24 10:43 BMI result Body Mass Index 22.4 Tobacco/Smoking Status: Tobacco use Status Tobacco use date assessed 03/09/24 03/09/24 10:44 Patient Tobacco Use Status Former Tobacco user 03/09/24 10:44 Tobacco use type Cigarette 03/09/24 10:44 e-Cigarette/Vaping Use Never Used 03/09/24 10:44 Thrive Assessment: Date of Thrive Assessment Date Thrive assessed 12/03/23 03/09/24 10:44 Const General: no acute distress and alert HENMT Ears: TM's normal bilaterally and EAC's normal Throat: Yes posterior oropharynx normal and Yes tonsils normal (no TP congestion noted) Neck Neck: Yes no lymphadenopathy and Yes supple Thyroid: Thyroid normal Resp Auscultation: clear to auscultation bilaterally, no rales and no wheezes Cardio Rate: regular rate Rhythm: regular rhythm Heart sounds: no murmurs GI Palpation (GI): Soft to palpation and nontender Auscultation: normal bowel sounds General: Yes no CVA tenderness Back/Spine/Pelvis Back: no CVA tenderness Skin Rashes: no rashes Extrem General: Yes no clubbing, cyanosis or edema Assessment and Plan Assessment & Plan (1) Pure hypercholesterolemia: Code(s): E78.00 - Pure hypercholesterolemia, unspecified Plan: Patient states that he went to the lab a few days ago but was advised that he has no orders in his chart - have apologized to patient that this was on me as I apparently forgot to place his orders in after I last saw him Have advised him that his numbers have been consistently good for a while now so skipping them at this time should be okay Reinforced low cholesterol diet Continue Simvastatin 20 mg QD Will recheck his labs and fasting lipids in 4 months for follow-up - braydon lowe (2) Benign essential hypertension: Code(s): I10 - Essential (primary) hypertension Plan: Reinforced low-sodium diet - goal is systolic BP of at least 140 mm or less Patient's BP remains very well-controlled Continue Losartan 25 mg QD (3) Impaired fasting glucose: Code(s): R73.01 - Impaired fasting glucose Plan: HgbA1c has been normal at 5.4% when checked a few times in the past FBS was normal at 97 mg/dl on his previous labs Reinforced low calorie diet / exercise as tolerated (4) COPD (chronic obstructive pulmonary disease): Code(s): J44.9 - Chronic obstructive pulmonary disease, unspecified Qualifiers: COPD type: unspecified COPD Qualified Code(s): J44.9 - Chronic obstructive pulmonary disease, unspecified Plan: Stable/controlled currently Continue Stiolto Respimat 2.5 mcg 2 puffs QD and Albuterol HFA 2 puffs 4 times a day PRN Follow up with pulmonary as scheduled (5) AAA (abdominal aortic aneurysm) without rupture: Comment: S/P AAA repair at [facility] on 01/24/2019 - (+) aortoiliac stent graft over infrarenal AAA Code(s): I71.4 - Abdominal aortic aneurysm, without rupture Qualifiers: Abdominal aorta location: unspecified Qualified Code(s): I71.40 - Abdominal aortic aneurysm, without rupture, unspecified Plan: S/P surgical repair of endoleak over his aortoiliac stent graft on 03/03/[address] at [facility] He has been doing well since with no acute issues Follow up with vascular surgery as scheduled for continuing management and surveillance (6) Vitamin D deficiency: Code(s): E55.9 - Vitamin D deficiency, unspecified Plan: Continue Vitamin D 2000 units every other day Will recheck his Vitamin D level in 4 months for follow up (7) Lumbar degenerative disc disease: Code(s): M51.36 - Other intervertebral disc degeneration, lumbar region Plan: Reinforced activity and weight lifting restrictions to avoid aggravating his low back pain (8) Osteoarthritis: Code(s): M19.90 - Unspecified osteoarthritis, unspecified site Qualifiers: Osteoarthritis location: unspecified site Osteoarthritis type: primary Qualified Code(s): M19.91 - Primary osteoarthritis, unspecified site Plan: States that his joint pains have been mostly manageable Reinforced regular exercise to help minimize his joint pains and stiffness (9) History of esophageal cancer: Comment: S/P Colin Jani esophagectomy on 10/15/2016 Code(s): Z85.01 - Personal history of malignant neoplasm of esophagus Plan: Continue Omeprazole [address] done last year reportedly showed no evidence of metastatic disease Follow-up with Oncology (Dr. Delarosa) as scheduled for continuing surveillance - sees Dr. Delarosa once a year now (10) Anxiety: Code(s): F41.9 - Anxiety disorder, unspecified Plan: Continue Citalopram 10 mg QD Plan Follow up in 4 months Orders: Orders Complete Blood Count Auto Diff 4 Months D64.9 - Anemia, unspecified Lipid Panel 4 Months E78.00 - Pure hypercholesterolemia, unspecified Comprehensive [place]. Panel Fast 4 Months E78.00 - Pure hypercholesterolemia, unspecified Vitamin D 25-OH Total 4 Months E55.9 - Vitamin D deficiency, unspecified TSH reflex Free T4 4 Months E78.00 - Pure hypercholesterolemia, unspecified UA CC w/rflx Micro + Cult 4 Months R30.0 - Dysuria Hemoglobin A1c 4 Months R73.01 - Impaired fasting glucose Coding Level of Care Code Est Pt Level 4 (77492) Diagnoses Pure hypercholesterolemia E78.00 Benign essential hypertension I10 Impaired fasting glucose R73.01 Chronic obstructive pulmonary disease, unspecified COPD type J44.9 COPD type: unspecified COPD Abdominal aortic aneurysm (AAA) without rupture, unspecified part I71.40 Abdominal aorta location: unspecified Vitamin D deficiency E55.9 Lumbar degenerative disc disease M51.36 Primary osteoarthritis, unspecified site M19.91 Osteoarthritis location: unspecified site Osteoarthritis type: primary History of esophageal cancer Z85.01 Anxiety F41.9
== END 2024-03-09 11:48 | disposition home or self-care (01) ==
PROVIDERS: PCP Internal Medicine; Visit Provider Internal Medicine
DX: J44.9 Chronic obstructive pulmonary disease, unspecified (principal); E78.00 Pure hypercholesterolemia, unspecified; I10 Essential (primary) hypertension; I71.40 Abdominal aortic aneurysm, without rupture, unspecified; R73.01 Impaired fasting glucose; E55.9 Vitamin D deficiency, unspecified; M51.36 Other intervertebral disc degeneration, lumbar region; M19.91 Primary osteoarthritis, unspecified site; Z85.01 Personal history of malignant neoplasm of esophagus; F41.9 Anxiety disorder, unspecified
CPT/HCPCS: 99214

== ENCOUNTER 2024-07-13 08:01 | Outpatient (REF) | payer MEDICARE, OTHER, SELFPAY ==
[2024-07-13 10:10] LABS: MANUAL DIFF FLAG NO
[2024-07-13 10:27] LABS: Basophils Absolute Auto 0.1 X10*3/uL (0.0-0.2); Basophils Percent Auto 1.8 % (0-2); Eosinophils Absolute Auto 0.3 X10*3/uL (0.0-0.4); Eosinophils Percent Auto 3.7 % (0-4); Hematocrit 42.9 % (42.0-52.0); Hemoglobin 14.2 g/dl (14.0-18.0); Imm Gran Abs Auto 0.03 X10*3/uL (0.00-0.03); Imm Gran Pct Auto 0.4 % (0.0-0.4); Lymphocytes Absolute Auto 0.9 X10*3/uL (1.2-4.9); Lymphocytes Percent Auto 11.6 % (20-40); Mean Corpuscular HGB Conc 33.1 g/dl (31.0-36.0); Mean Corpuscular Volume 90.7 fL (80.0-98.0); Mean Platelet Volume 9.3 fL (9.4-12.4); Monocytes Absolute Auto 0.9 X10*3/uL (0.1-1.2); Monocytes Percent Auto 11.9 % (2-11); Neutrophils Absolute Auto 5.2 x10*3/uL (2.0-8.3); Neutrophils Percent Auto 70.6 % (45-73); Platelet Count 198 X10*3/uL (160-400); Red Blood Count 4.73 X10*6/uL (4.60-5.80); Red Cell Distribution Width 15.3 % (11.0-16.0); White Blood Count 7.3 X10*3/uL (4.8-10.8)
[2024-07-13 10:39] LABS: Estimated Average Glucose 117 mg/dL; Hemoglobin A1C 141.0337 umol/L; Hemoglobin A1c % 5.7 % (<6.0); Total Hemoglobin (HGBA1C) 3612.1657 umol/L
[2024-07-13 11:06] LABS: Appearance Urine Clear; Color Urine Yellow; Glucose Urine UA Negative (Negative); Leukocyte Esterase Urine Negative (Negative); Nitrite Urine Negative (Negative); PH 6.5 (5.0-9.0); Urine Blood Negative (Negative); Urine Ketones Negative (Negative); Urine Protein Negative (Neg-Trace)
[2024-07-13 11:18] LABS: Alanine Aminotransferase 15 U/L (0-40); Albumin Level 3.9 g/dL (3.5-5.0); Alkaline Phosphatase 61 U/L (39-117); Anion Gap 12 (12-20); Aspartate Amino Transferase 27 U/L (5-37); Bilirubin Total 0.6 mg/dL (0.0-1.0); Blood Urea Nitrogen 11 mg/dL (9-16); Calcium 9.5 mg/dL (8.4-10.2); Carbon Dioxide 26 mmol/L (22-29); Chloride 107 mmol/L (96-108); Cholesterol 125 mg/dL (<200); Estimated Glomerular Filt Rate > 60; Glucose Fasting 97 mg/dL (60-99); HDL Cholesterol 44 mg/dL (>40); LDL Cholesterol Calculated 67 mg/dL (<100); Potassium 4.4 mmol/L (3.3-5.1); Sodium 141 mmol/L (135-145); Total Protein 6.3 g/dL (6.5-8.0); Triglycerides 73 mg/dL (<150); Vitamin D 25-OH Total 63.7 ng/mL (>30)
== END 2024-07-13 08:02 | disposition home or self-care (01) ==
LOC: HO.HMGCLDS 08:01
PROVIDERS: PCP Internal Medicine; Visit Provider Internal Medicine
DX: R73.01 Impaired fasting glucose (principal); E78.00 Pure hypercholesterolemia, unspecified; R30.0 Dysuria; D64.9 Anemia, unspecified; E55.9 Vitamin D deficiency, unspecified
CPT/HCPCS: 36415; 80053; 80061; 81003; 82306; 83036; 84443; 85025

== ENCOUNTER 2024-07-20 10:20 | Outpatient (AMB) | payer MEDICARE, OTHER, SELFPAY ==
[2024-07-20 10:22] VITALS: BP 106/72; PULSE 71; O2SAT 93; BMI 21.9
--- NOTE | 2024-07-20 10:22 | MHC.PC.OV ---
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 Accompanied by: Spouse Allergies lactose [LACTOSE] Allergy (Unknown, Verified 07/20/24 11:37) INTOLERANT Medication List - Last Reconciled 07/20/24 by Sergio Ballesteros MD albuterol sulfate 90 mcg/actuation (ProAir HFA) 2 inhalations inhalation Q6H PRN cetirizine (Zyrtec) 10 mg PO DAILY cholecalciferol (vitamin D3) (Vitamin D3) 50 mcg PO DAILY citalopram 10 mg PO DAILY finasteride 1 tab PO DAILY losartan 25 mg PO DAILY melatonin 10 mg PO BEDTIME PRN multivitamin 1 tab PO DAILY omeprazole 40 mg PO DAILY simvastatin 20 mg PO BEDTIME tamsulosin 1 cap PO DAILY tiotropium-olodaterol 2.5-2.5 mcg/actuation (Stiolto Respimat) 2 puffs inhalation DAILY Tobacco use date assessed: 07/20/24 Fall risk assessment: No Falls in past year Last assessed Fall Risk: 07/20/24 Dental Screening Dental Screen Date: 07/20/24 Did you have a dental visit in the last 12 months?: No Did you have a dental problem in the last 6 months where you did not have access to dental care?: No Was dental information given to patient?: No HPI 4 Month F/U HPI Details Patient comes in today for his follow up visit States that he feels okay although he feels that he is slowing down overall and has been experiencing frequent stiffness and joint aches and pains lately He denies any headaches or dizziness Denies any chest pains, no SOB No nausea/vomiting, no abdominal pain No change in bowel habits noted He had his follow-up labs done last week - to discuss his results [facility] Medical History COVID-19 vaccine administered Overweight (BMI 25.0-29.9) Anxiety History of esophageal cancer Vitamin D deficiency Lumbar degenerative disc disease Osteoarthritis Impaired fasting glucose AAA (abdominal aortic aneurysm) without rupture Benign essential hypertension Pure hypercholesterolemia Esophageal adenocarcinoma Pneumonia Aneurysm TIA (transient ischemic attack) COPD (chronic obstructive pulmonary disease) BPH (benign prostatic hyperplasia) Surgical History History of shoulder surgery History of hip surgery History of bunionectomy of right great toe (~01/26/13) Hx of colonoscopy History of bunionectomy of left great toe (~02/2016) History of colonoscopy History of esophagectomy (~10/15/16) History of incisional hernia repair S/P AAA repair (~05/26/19) Family History Daughter Breast cancer Father Substance abuse Social History Household Members: Spouse Housing: Condominium Alcohol intake: current Alcohol intake frequency: holidays/special occasions only Alcohol type: beer Patient Tobacco Use Status: Former Tobacco user Tobacco use type: Cigarette Cigarette Packs Per Day: 2 e-Cigarette/Vaping Use: Never Used Second Hand Smoke Exposure: Yes service: Yes ([employer] and [employer] Current occupational status: retired Cognitive needs: No Hearing needs: Yes Vision needs: Yes (glasses) Questionnaire PHQ-9 Over the last 2 weeks, how often have you been bothered by any of the following problems? 1. Little interest or pleasure in doing things: not at all 2. Feeling down, depressed, or hopeless: not at all 3. Trouble falling or staying asleep, or sleeping too much: not at all 4. Feeling tired or having little energy: not at all 5. Poor appetite or overeating: not at all 6. Feeling bad about yourself - or that you are a failure or have let yourself or your family down: not at all 7. Trouble concentrating on things, such as reading the newspaper or watching television: not at all 8. Moving or speaking so slowly that other people could have noticed. Or the opposite - being so fidgety or restless that you have been moving around a lot more than usual: not at all 9. Thoughts that you would be better off or of hurting yourself in some way: not at all Total score: 0 Depression Screening Interpretation: Negative Depression Screening Done: Yes 12798 - PHQ-9 Billing: Yes Source: Developed by Drs. David Chakraborty, Veronica Allan, Demetrio Roberts and colleagues, with an educational crys from [employer]. Thrive Questionnaire Date Thrive assessed: 07/20/24 I am a: Patient What is your living situation today?: I have a steady place to live Within the past 12 months, did the food you bought not last and you didn't have the money to get more?: Never true Within the past 12 months, did you worry whether your food would run out before you got money to buy more?: Never true Do you have trouble paying for medicines?: No Do you have trouble getting transportation to medical appointments?: No Do you have trouble paying your heating and electricity bill?: No Do you have trouble taking care of your child, family member or friend?: No Do you have trouble with day-to-day activities such as bathing, preparing meals, shopping, managing finances, etc.?: No Are you currently unemployed and looking for a job?: No Are you interested in more education?: No Please select the resources that you would like help with: None Currently or been in a relationship where the following occur: No concerns reported THRIVE Score: 0 AUDIT C Alcohol Use Questionnaire (AUDIT-C) 1. How often do you have a drink containing alcohol?: Monthly or less 2. How many drinks containing alcohol do you have on a typical day when you are drinking?: 1 or 2 3. How often do you have six or more drinks on one occasion?: Never Total Score: 1 Score Reviewed/Action Taken: Yes SHRUTHI-7 AMB Questionnaire SHRUTHI-7 Date SHRUTHI - 7 assessed: 07/20/24 Feeling nervous, anxious, or on edge: 0 = Not at all Not being able to stop or control worryin = Not at all Worrying too much about different things: 0 = Not at all Trouble relaxin = Not at all Being so restless that it is hard to sit still: 0 = Not at all Becoming easily annoyed or irritable: 0 = Not at all Feeling afraid as if something awful might happen: 0 = Not at all Total SHRUTHI-7 score (0-4 normal; 5-9 mild; 10-14 moderate; 15-21 severe): 0 Source: Developed by Drs. David Chakraborty, Veronica Allan, Demetrio Roberts and colleagues, with an educational crys from [employer]. Review of Systems Const Denies chills, Reports fatigue, Denies fever(s) and Denies headache(s) ENT Denies dysphagia, Denies dizziness, Denies otalgia, Denies headache(s), Denies neck pain, Denies odynophagia and Denies sore throat Card Denies chest pain, Denies palpitations and Reports dyspnea on exertion Resp Denies chest congestion, Denies cough and Reports dyspnea on exertion GI Denies abdominal pain, Denies constipation, Denies dysphagia, Denies heartburn, Denies diarrhea, Denies nausea, Denies odynophagia and Denies vomiting Denies dysuria, Denies nocturia and Denies urinary frequency Musc Denies back pain, Denies arthralgias and Denies neck pain Skin/Breast Denies rash Neuro Denies dizziness and Denies headache(s) Endo Reports fatigue and Denies palpitations Physical exam (Primary Care) Vital Signs: Last Vital Signs Pulse 71 07/20/24 10:22 BP 106/72 07/20/24 10:22 Pulse Ox 93 07/20/24 10:22 Oxygen Delivery Method Room Air 07/20/24 10:22 BMI result Body Mass Index 21.9 Tobacco/Smoking Status: Tobacco use Status Tobacco use date assessed 07/20/24 07/20/24 10:28 Patient Tobacco Use Status Former Tobacco user 07/20/24 10:28 Tobacco use type Cigarette 07/20/24 10:28 e-Cigarette/Vaping Use Never Used 07/20/24 10:28 PHQ-9: PHQ-9 Score PHQ-9: Total score 0 07/20/24 11:42 Depression Screening Interpretation: Negative Thrive Assessment: Date of Thrive Assessment Date Thrive assessed 07/20/24 07/20/24 10:28 Currently or been in a relationship where the following occur: No concerns reported Const General: no acute distress and alert HENMT Ears: TM's normal bilaterally and EAC's normal Throat: Yes posterior oropharynx normal and Yes tonsils normal (no TP congestion noted) Neck Neck: Yes no lymphadenopathy and Yes supple Thyroid: Thyroid normal Resp Auscultation: clear to auscultation bilaterally, no rales and no wheezes Cardio Rate: regular rate Rhythm: regular rhythm Heart sounds: no murmurs GI Palpation (GI): Soft to palpation and nontender Auscultation: normal bowel sounds General: Yes no CVA tenderness Back/Spine/Pelvis Back: no CVA tenderness Skin Rashes: no rashes Extrem General: Yes no clubbing, cyanosis or edema Results Reviewed Results Reviewed: Laboratory Tests 07/13/24 08:15 WBC 7.3 Hgb 14.2 Hct 42.9 Plt Count 198 Sodium 141 Potassium 4.4 Creatinine 0.79 Estimated GFR > 60 Fasting Glucose 97 Hemoglobin A1c % 5.7 Calcium 9.5 AST 27 ALT 15 Total Protein 6.3 L Albumin 3.9 Triglycerides 73 Cholesterol 125 LDL Cholesterol, Calc 67 HDL Cholesterol 44 25-OH Vitamin D Total 63.7 TSH 0.80 Ur Specific [place] 1.010 Urine Protein Negative Urine Glucose (UA) Negative Urine Blood Negative Urine Nitrite Negative Ur Leukocyte Esterase Negative Coding Level of Care Code Est Pt Level 4 (49170) Complex EM visit Add On G2211 Diagnoses Pure hypercholesterolemia E78.00 Benign essential hypertension I10 Impaired fasting glucose R73.01 Chronic obstructive pulmonary disease, unspecified COPD type J44.9 COPD type: unspecified COPD Abdominal aortic aneurysm (AAA) without rupture, unspecified part I71.40 Abdominal aorta location: unspecified Vitamin D deficiency E55.9 Degeneration of intervertebral disc of lumbar region with discogenic back pain M51.360 Disc-related pain type: discogenic back pain only Primary osteoarthritis, unspecified site M19.91 Osteoarthritis location: unspecified site Osteoarthritis type: primary History of esophageal cancer Z85.01 Benign prostatic hyperplasia, unspecified whether lower urinary tract symptoms present N40.0 Lower urinary tract symptom presence: unspecified whether lower urinary tract symptoms present Anxiety F41.9 Additional Codes PHQ-9 - 47990 - PHQ-9 Billing: Yes ([id number]) Assessment & Plan Assessment & Plan (1) Pure hypercholesterolemia: Code(s): E78.00 - Pure hypercholesterolemia, unspecified Category: Medical Plan: Results of his labs done last week reviewed and discussed with patient Reinforced low cholesterol diet Continue Simvastatin 20 mg QD Will recheck his labs and fasting lipids in 4 months for follow-up (2) Benign essential hypertension: Code(s): I10 - Essential (primary) hypertension Category: Medical Plan: Reinforced low-sodium diet - goal is systolic BP of at least 140 mm or less Patient's BP remains very well-controlled Continue Losartan 25 mg QD (3) Impaired fasting glucose: Code(s): R73.01 - Impaired fasting glucose Category: Medical Plan: His HgbA1c remained normal at 5.7% on his recent labs (was normal at 5.4% when checked a few times in the past) FBS was also normal at 97 mg/dl on his recent labs Reinforced low calorie diet / exercise as tolerated (4) COPD (chronic obstructive pulmonary disease): Code(s): J44.9 - Chronic obstructive pulmonary disease, unspecified Category: Medical Qualifiers: COPD type: unspecified COPD Qualified Code(s): J44.9 - Chronic obstructive pulmonary disease, unspecified Plan: Stable/controlled currently Continue Stiolto Respimat 2.5 mcg 2 puffs QD and Albuterol HFA 2 puffs 4 times a day PRN Follow up with pulmonary as scheduled (5) AAA (abdominal aortic aneurysm) without rupture: Comment: S/P AAA repair at [facility] on 01/24/2019 - (+) aortoiliac stent graft over infrarenal AAA Code(s): I71.4 - Abdominal aortic aneurysm, without rupture Category: Medical Qualifiers: Abdominal aorta location: unspecified Qualified Code(s): I71.40 - Abdominal aortic aneurysm, without rupture, unspecified Plan: S/P surgical repair of endoleak over his aortoiliac stent graft on 03/03/[address] Dockery at [facility] He has been doing well since with no acute issues Follow up with vascular surgery as scheduled for continuing management and surveillance (6) Vitamin D deficiency: Code(s): E55.9 - Vitamin D deficiency, unspecified Category: Medical Plan: Corrected - continue Vitamin D 2000 units every other day Will recheck his Vitamin D level in 4 months for follow up (7) Lumbar degenerative disc disease: Code(s): M51.36 - Other intervertebral disc degeneration, lumbar region Category: Medical Qualifiers: Disc-related pain type: discogenic back pain only Qualified Code(s): M51.360 - Other intervertebral disc degeneration, lumbar region with discogenic back pain only Plan: Reinforced activity and weight lifting restrictions to avoid aggravating his low back pain (8) Osteoarthritis: Code(s): M19.90 - Unspecified osteoarthritis, unspecified site Category: Medical Qualifiers: Osteoarthritis location: unspecified site Osteoarthritis type: primary Qualified Code(s): M19.91 - Primary osteoarthritis, unspecified site Plan: States that his joint pains have been mostly manageable Reinforced regular exercise to help minimize his joint pains and stiffness (9) History of esophageal cancer: Comment: S/P [place] [facility] esophagectomy on 10/15/2016 Code(s): Z85.01 - Personal history of malignant neoplasm of esophagus Category: Medical Plan: Continue Omeprazole [address] done last year reportedly showed no evidence of metastatic disease Follow-up with Oncology (Dr. Delarosa) as scheduled for continuing surveillance - sees Dr. Delarosa once a year now (10) BPH (benign prostatic hyperplasia): Code(s): N40.0 - Benign prostatic hyperplasia without lower urinary tract symptoms Category: Medical Qualifiers: Lower urinary tract symptom presence: unspecified whether lower urinary tract symptoms present Qualified Code(s): N40.0 - Benign prostatic hyperplasia without lower urinary tract symptoms Plan: Continue Finasteride 5 mg QD and Tamsulosin 0.4 mg QD Follow up with urology as scheduled (11) Anxiety: Code(s): F41.9 - Anxiety disorder, unspecified Category: Medical Plan: Continue Citalopram 10 mg QD Plan Follow-up in 4 months Orders: Orders Hemoglobin A1c 4 Months R73.01 - Impaired fasting glucose Complete Blood Count Auto Diff 4 Months D64.9 - Anemia, unspecified Lipid Panel 4 Months E78.00 - Pure hypercholesterolemia, unspecified Comprehensive [place]. Panel Fast 4 Months E78.00 - Pure hypercholesterolemia, unspecified TSH reflex Free T4 4 Months E78.00 - Pure hypercholesterolemia, unspecified UA CC w/rflx Micro + Cult 4 Months R30.0 - Dysuria
--- OUTSIDE RECORDS SUMMARY | 2024-07-21 00:17 | XMS_ITS | Encounter Summary ---
Author Name [facility] [place] [facility] [place] Address [address] [place] [address] Care Team Providers Care Area Field Manager Name Role Phone VIPUL SLADE Primary Care Provider Unavailabl e Insurance Providers: All historical and current Section Date Range: From patient's date of to the date document was created. This section includes the names of all active insurance providers for the patient. Insurance Provider Type of Coverage Plan Name Start of Policy Coverage End of Policy Coverage Group Number Member ID Insurance Provider's Telephone Number Policy Lima's Name Patient's Relationship to Policy Lima MEDICARE (WNR) MEDICARE (M) PART A Sep 10, 2008 PART A [id number] CAITLYN LAZO ERT PATIENT MEDICARE (WNR) MEDICARE (M) PART B Sep 10, 2008 PART B [id number] CAITLYN LAZO ERT PATIENT MEDICARE (WNR) MEDICARE (M) PART A Sep 10, 2008 PART A [id number] CAITLYN LAZO ERT PATIENT MEDICARE (WNR) MEDICARE (M) PART B Sep 10, 2008 PART B [id number] CAITLYN LAZO ERT PATIENT FOR LIFE TFL* Nov 25, 2012 [id number] CAITLYN LAZO ERT PATIENT Selected Encounter This section includes the information on record at [place] for the Encounter. Date/Time Encounter Type Encounter Description Reason Provider Source Jul 21, 2023 03:00 PM EYE EXAM&TX ESTAB PT 1/>VST OPTOMETRY ICD-10-CM H25.13 Age-related nuclear cataract, bilateral CORINNA FELIX Chris Encounter Template Text not used by [place] Assessments - Encounter Diagnoses This section includes the primary and secondary diagnoses documented for the Encounter. Date/Time Primary/Secondary Diagnosis Diagnosis Name Provider Source Jul 22, 2023 07:58 AM PRIMARY Age-related nuclear cataract, bilateral CORINNA FELIX [facility] Jul 22, 2023 07:58 AM SECONDARY Dry eye syndrome of bilateral lacrimal glands CORINNA FELIX [facility] Jul 22, 2023 07:58 AM SECONDARY Presbyopia CORINNA FELIX [facility] Plan of Treatment: Future Appointments (+ 6 months) and Future Tests (+/- 45 days) The Plan of Treatment section includes future care activities for the [facility] [place] [facility] This section includes future appointments and future orders which are active, pending or scheduled. Future Appointments This section includes appointments that were scheduled to occur 6 months from the date of the Encounter, up to a maximum of 20 appointments. The data comes from all [place] treatment facilities. Appointment Date/Time Appointment Type Appointme nt Facility Name Aug 12, 2023 10:40 AM AMBULATORY - MEDICINE [facility] Nov 19, 2023 09:00 AM AMBULATORY - MEDICINE [facility] Social History: Smoking Status (Most current) and Tobacco Use (All prior to encounter date) This section includes the most current, and the historical, smoking and tobacco- related health factors from the [place] facility where the Encounter took place. Current Smoking Status This section includes the most current smoking, or tobacco-related health factor, from the [place] facility where the Encounter took place. Date/Time Current Smoking Status Comment Xu garcía Nov 06, 2020 03:58 PM VA-TOBACCO FORMER USER [facility] Tobacco Use History This section includes a history of the smoking, or tobacco-related health factors, that were collected on or before the date of the Encounter. The data comes from the [place] facility where the Encounter took place. Date/Time Smoking Status/Tobacco Use Comment F acility Nov 06, 2020 03:58 PM VA-TOBACCO QUIT 15 YRS OR MORE [facility] [place] [facility] Encounter Notes: All associated encounter notes This section contains the clinical notes associated to the Encounter. Date/Time Encounter Note(s) Provider Source Jul 21, 2023 12:56 PM OPTOMETRY NOTE: LOCAL TITLE: OPTOMETRY NOTE STANDARD TITLE: OPTOMETRY NOTE DATE OF NOTE: JUL 21, 2023@12:56 ENTRY DATE: JUL 21, 2023@12:56:56 AUTHOR: TILA HURLEY EXP COSIGNER: CORINNA FELIX URGENCY: STATUS: COMPLETED OPTOMETRY NOTE Has ADDENDA Active problems - Computerized Problem List is the source for the followin. Benign prostatic hypertrophy 2. Vitamin D deficiency 3. Gastroesophageal reflux disease without esophagitis 4. Primary erectile dysfunction 5. Insomnia 6. Environmental allergy (SNOMED CT [id number]) 7. HTN - Hypertension (SCT [id number]) 8. Hyperlipidemia ([facility] [id number]) 9. Prediabetes 10. NON VA PCP 11. History of malignant neoplasm of oesophagus 12. Chronic obstructive lung disease 13. Abdominal aortic aneurysm 14. Osteoarthritis 15. Bunion 16. Closed fracture of clavicle 17. Hearing loss 18. Tinnitus Active Outpatient Medications (including Supplies): Active Non-VA Medications Status 1) Non-VA ALBUTEROL 90MCG (CFC-F) 200D ORAL INHL 2 PUFFS ACTIVE BY MOUTH NEEDED 2) Non-VA CETIRIZINE HCL 10MG TAB 10MG BY MOUTH DAILY ACTIVE 3) Non-VA CITALOPRAM HYDROBROMIDE 20MG TAB 10MG BY MOUTH ACTIVE DAILY 4) Non-VA FINASTERIDE 5MG TAB 5MG BY MOUTH DAILY ACTIVE 5) Non-VA LOSARTAN 25MG TAB 25MG BY MOUTH DAILY ACTIVE 6) Non-VA MULTIVITAMIN/MINERALS CAP/TAB 1 TABLET BY ACTIVE MOUTH DAILY 7) Non-VA OLODATEROL/TIOTROP 2.5MCG/ACTUAT 60D INH 2 ACTIVE PUFFS (1 DOSE) BY MOUTH ONCE DAILY 8) Non-VA OMEPRAZOLE 20MG EC CAP 40MG BY MOUTH EVERY ACTIVE MORNING 30 MINUTES BEFORE BREAKFAST 9) Non-VA SIMVASTATIN 40MG TAB 20MG BY MOUTH DAILY ACTIVE 10) Non-VA TAMSULOSIN HCL 0.4MG CAP 0.4MG BY MOUTH AT ACTIVE BEDTIME 11) Non-VA VITAMIN D3 (CHOLECALCIFEROL) TAB 5000IU BY ACTIVE MOUTH ONCE DAILY Allergies: LACTOSE All medications including those prescribed by outside VA's, community providers, and all OTC meds were reviewed and reconciled with patient to the best of their abilities. This 77 year old MALE is seen today for a comprehensive eye exam. Chief Complaint: Reports good vision at distance with glasses but blurry vision at near with glasses. Reports having to come to the VA on 3 separate follow up visits because he did not see well out of his glasses. He decided to go to an outside provider about 1.5 years ago to get glasses but they have started to become blurry. Bagley wants to switch back to the VA due to glasses costs. Reports having increased difficulty with night driving especially with the glare Ocular Medications: (+) Systane: buys them OTC, does not need any from the VA OHx (+/-)If Yes, explain: 1. Refraction disorder 2. Nuclear Sclerotic Cataracts OU - not visually significant at present 3. Dry Eye Syndrome OU - symptomatic (-) Pain: (-) NICKERSON: (-) Diplopia: (-) Flashes: (-) Floaters: (-) Amaurosis Fugax/Tia's: (-) Eye Injury: (-) Eye Surgery: (-) TBI FOHx: (+) Blindness: mother from DM (-) Smoker/Length of Time/PPD: quit 1988 Current Rx with last BCVA: OD: +1.75 -2.00 x79 OS: +1.50 -0.50 x116 ADD: +2.50 DVA ( )sc ( x )cc OD: 20/ 25+2 OS: 20/ 20-2 Pupils: PERRL (-)APD OU EOMs: SAFE OU, (-)Pain/Diplopia OU CVF (facial, peripheral): FTFC OU Subjective Refraction: OD: +1.50 -2.00 x079 20/20-1 OS: +1.75 -0.50 x116 20/20 Add: +2.75 at 0.36cm 20 Trial framed at distance/near and happy with vision All the above performed by student, reviewed by attending Anterior segment: Performed by student, repeated by attending * Lids: dermatochalasis OU, 1+ MGD OU Conj: white and quiet OU Cornea: clear OU AC: 4x4 OU Iris: flat and clear OU (-)TID/NVI OU Lens: 1+ NS OU (-)PXF OU Tonometry: Performed by student, reviewed by attending * OD 14 mmHg OS 15 mmHg Time: 3:07pm Fundus exam: Dilated: 3:09pm Non dilated: Dilating Drops: 1GTT 1 % Tropicamide OU (Pt. ed. on side effects, dilation warning given and verbal consent obtained) Patient advised not to drive if they feel they have any symptoms which could affect their ability to drive safely. Patient advised not to engage in any activities which could put themselves or others at risk if they feel they have any symptoms which could affect their ability to perform those activities safely. Performed by student, repeated by attending * Vit: clear OU C/D: 0.40/0.40 OD, 0.45/0.45 OS, PPA temporally OU Macula: flat and clear OU PPole: clear OU A/V: 2/3 OU Vessels: normal caliber OU Periph: flat and intact (-)holes, tears, detachments 360 OU Assessment/Plan: 1. Nuclear Sclerotic Cataracts OU - not visually significant - Patient educated on findings and the importance of UV protection. - Monitor. 2. Dry eye syndrome OU - Patient educated on findings. - Continue using Systane prn OU - Monitor. 3. 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 - Slight change in rx - Will order bifocal transitions and bifocal yellow tint #2 - Monitor. Return to Clinic 2 years or earlier PRN Medication Reconciliation: Outpatient: Has the patient been taking medications as documented in the EMLR? YES: The patient has been taking medications as documented in the EMLR. Essential Medication List for Review used to complete this medication reconciliation. INCLUDED IN THIS LIST: Alphabetical list of active outpatient prescriptions dispensed from this [facility] (local) and dispensed from another [place] or [facility] facility (remote) as well as inpatient orders (local, pending and active), local clinic medications, locally documented non-VA medications, and local prescriptions that have or been discontinued in the past 90 days. - All changes in medications, including all non-VA/Herbal/OTC medications were entered into CPRS. - If there were any medications the patient should no longer take, they were discontinued. - The patient/caregiver was instructed to update this list, discard old lists, and take this list to the next appointment, whether with a VA or non-VA provider. Medication List: JLV Link Data on this list may not be complete. Please check JLV. Allergies/ADRs (Tool #5) FACILITY ALLERGY/ADR -------- No Remote Allergy/ADR Data available for this patient [place] [facility] Med. Reconciliation (Tool #1) INCLUDED IN THIS LIST: Alphabetical list of active outpatient prescriptions dispensed from this [place] (local) and dispensed from another [place] or [facility] facility (remote) as well as inpatient orders (local pending and active), local clinic medications, locally documented non-VA medications, and local prescriptions that have or been discontinued in the past 90 days. Non-VA Meds Last Documented On: Nov 07, 2020 NOTE The display of VA prescriptions dispensed from another VA or [facility] facility (remote) is limited to active outpatient prescription entries matched to National Drug File at the originating site and may not include some items such as investigational drugs, compounds, etc. NOT INCLUDED IN THIS LIST: Medications self-entered by the patient into personal health records (i.e. [employer]) are NOT included in this list. Non-VA medications documented outside this [place], remote inpatient orders (regardless of status) and remote clinic medications are NOT included in this list. The patient and provider must always discuss medications the patient is taking, regardless of where the medication was dispensed or obtained. Non-VA ALBUTEROL 90MCG (CFC-F) 200D ORAL INHL INHALE 2 PUFFS BY MOUTH NEEDED Non-VA CETIRIZINE HCL 10MG TAB TAKE ONE TABLET BY MOUTH DAILY Non-VA CITALOPRAM HYDROBROMIDE 20MG TAB TAKE ONE-HALF TABLET BY MOUTH DAILY Non-VA FINASTERIDE 5MG TAB TAKE ONE TABLET BY MOUTH DAILY Non-VA LOSARTAN 25MG TAB TAKE ONE TABLET BY MOUTH DAILY Non-VA MULTIVITAMIN/MINERALS CAP/TAB TAKE ONE TABLET BY MOUTH DAILY Non-VA OLODATEROL/TIOTROP 2.5MCG/ACTUAT 60D INH INHALE 2 PUFFS (1 DOSE) BY MOUTH ONCE DAILY Medication prescribed by Non-VA provider. Non-VA OMEPRAZOLE 20MG EC CAP TAKE 2 CAPSULES BY MOUTH EVERY MORNING 30 MINUTES BEFORE BREAKFAST Medication prescribed by Non-VA provider. Non-VA SIMVASTATIN 40MG TAB TAKE ONE-HALF TABLET BY MOUTH DAILY Non-VA TAMSULOSIN HCL 0.4MG CAP TAKE 1 CAPSULE BY MOUTH AT BEDTIME Non-VA VITAMIN D3 (CHOLECALCIFEROL) TAB TAKE 5000IU BY MOUTH ONCE DAILY Medication prescribed by Non-VA provider. SUPPLIES PHARMACY TERMS AND POSSIBLE PATIENT ACTIONS INPT = [place] inpatient order IV = [place] intravenous medication OUTPT = [place] outpatient prescription PHARMACY POSSIBLE PATIENT TERMS EXPLANATION ACTIONS -------- --- ACTIVE A prescription that can be If you have refills, filled at the local [place] pharmacy. you may request a refill of this prescription from your [place] pharmacy. CLINIC A medication you received during If you have questions a visit to a [place] clinic or about this medication emergency department. contact your VA healthcare team. DISCONTINUED A prescription your provider has Contact your VA stopped. It is no longer healthcare team if you available to be sent to you or need more of this picked up at the [place] pharmacy medication. window. A prescription which is too old Contact your VA to fill. This does not refer to healthcare team if you the expiration date of the need more of this medication in the container. medication. NON-VA A medication that came from If this medication someplace other than a VA information is pharmacy. This may be a incorrect or out of prescription from either the VA date, please tell your or non VA providers that was VA healthcare team. filled outside the VA. Or, it may be an vjrc-fec-qeckgaa (OTC), herbal, dietary supplements or sample medication. ON HOLD An active prescription that will Contact your VA not be filled until pharmacy pharmacy when you need resolves the issue. more of this medication. PARKED An active prescription that will Contact your VA not be filled until the patient pharmacy when you need requests it. this medication. PENDING This prescription order has been If you have been sent to the pharmacy for review instructed to start and is not ready yet. this medication now, contact your VA pharmacy. SUSPENDED An active prescription that is Contact your VA not scheduled to be filled yet. pharmacy if you need You should receive it before this medication now. you run out. ======== (x) Printed Medication Reconciliation List Offered and Declined by () Medication Reconciliation List Printed for Bagley at Exam () Optometry HT Please Print and Mail Copy of Medication Reconciliation List () AMSA Please Print and Mail Copy of Medication Reconciliation List /bakari/ TILA HURLEY OPTOMETRY STUDENT Signed: 07/22/2023 10:22 /es/ CORINNA FELIX OD HEAT TREATMENT TECHNICIAN Cosigned: 07/22/2023 11:35 07/22/2023 ADDENDUM STATUS: COMPLETED The optometry chief internal auditor participated in this exam, I saw this Bagley in conjunction with the optometry student. The entrance tests and refraction were performed by the student and reviewed by me. I personally met with the patient, confirmed the hisory, complaints and the student's findings, and performed slit lamp and fundus evaluation as indicated. I reviewed and agree with the stated findings, assessment and plan. I have added/edited the documentation to reflect my exam findings and changes to the assessment and plan. Ed re today's findings. repeated back the plan and education. All reminders completed by attending and documented in student note. /bakari/ CORINNA FELIX OD HEAT TREATMENT TECHNICIAN Signed: 07/22/2023 11:35 TILA HURLEY [facility]
--- OUTSIDE RECORDS SUMMARY | 2024-07-21 00:17 | XMS_ITS | Continuity of Care Document ---
Author Name [facility] Organization [facility] Care Team Providers Care Golf Course Architect Name Role Phone [facility] Unavailable Unavailable Problems Combined list of problems from Department of Defense and Veterans Affairs facilities. It does not include entries that were removed or entered in error. Problem Status Onset Date Problem Type Date of Resolution Comments Source Abdominal aortic aneurysm Active Condition Oct 29, 2020 Entered By: VIPUL SLADE Comment: repair 2019 [place] Benign prostatic hypertrophy Active Condition [place] Bunion Active Condition Oct 10 16 Entered By: MAYI CRUZ Comment: s/p R surgery 12/21 [place] Chronic obstructive lung disease Active Condition [place] Closed fracture of clavicle Active Condition Oct 11, 2015 Entered By: MAYI CRUZ Comment: x3 s/p bone graft from hip to R clavicle 1965 [place] Environmental allergy (SNOMED CT 254030512) Active Condition [facility] Gastroesophageal reflux disease without esophagitis Active Condition [facility] Hearing loss Active Condition [facility] History of malignant neoplasm of oesophagus Active Condition Nov 13, 2021 Entered By: VIPUL SLADE Comment: 10/2016 - s/p [facility] Esophagectomy [place] HTN - Hypertension (SCT 44672990) Active Condition [facility] Hyperlipidemia (SCT 83010936) Active Condition [facility] Insomnia Active Condition [facility] NON [facility] PCP Active Condition Nov 07 Entered By: VIPUL SLADE Comment: nonVA PCP: Dr Sergio Palmer 2020 Entered By: VIPUL SLADE Comment: Oncology: Dr. Heard 2020 Entered By: VIPUL SLADE Comment: Vascular: Dr. Coelho 2020 Entered By: VIPUL SLADE Comment: Mail Courier: Dr Gil 2020 Entered By: VIPUL SLADE Comment: Rock Crusher Operator: Dr Keller [facility] Osteoarthritis Active Condition [facility] IELD Prediabetes [facility] Primary erectile dysfunction [facility] Tinnitus Active Condition [place] Vitamin D deficiency Active Condition [facility] Diagnosis: ICD-10-CM I10 Essential (primary) hypertension Active Diagnosis [place] Diagnosis: ICD-10-CM Z46.0 Encounter for fit/adjst of spectacles and contact lenses Active Diagnosis [facility] Diagnosis: ICD-10-CM H25.13 Age-related nuclear cataract, bilateral Active Diagnosis [facility] Diagnosis: ICD-10-CM Z46.1 Encounter for fitting and adjustment of hearing aid [facility] Medications Combined list of outpatient medications from Department of Defense and Veterans Affairs facilities.Medications provided include 1) outpatient medications from the last 15 months, and 2) patient-reported medications. Medication Details Route Status Patient Instructions Prescription Expires Prescription Number Last Dispense Date Ordering Provider Order Date Order Qty Source ALBUTEROL 90MCG/ACTUA T (CFC-F) INHL,ORAL,8 .5GM DOSE COUNTER INHALE 2 PUFFS BY MOUTH PRN RESPIR ATORY (INHAL ATION) ACTIVE MEGHA CRUZ 2015 [facility] IELD ALBUTEROL SULFATE HFA (albuterol sulfate), 90 MCG, HFA AER AD, INHALATION, [place], 8.5 g CANISTER Active [id number] 3 2022 8.5 Pharmac y Data Transac tion Service Facilit y AMOXICILLIN (AMOXICILLI N), 500 MG, CAPSULE, ORAL, SANDOZ, 500 ea. BOTTLE Active [id number] 3 2022 20 Pharmac y Data Transac tion Service Facilit y Benzonatate ([facility]) 100 CAPSULE in 1 BOTTLE Active [id number] 07/26/20 2 3 2022 21 Pharmac y Data Transac tion Service Facilit y CETIRIZINE HCL 10MG TAB TAKE ONE TABLET BY MOUTH DAILY ORAL ACTIVE ANTHONYRUDDYJaelyn COX 2015 IELD CITALOPRAM HYDROBROMID E 20MG TAB TAKE ONE-HALF TABLET BY MOUTH DAILY ORAL ACTIVE MEGHA CRUZ 2015 IELD DOXYCYCLINE MONOHYDRATE (doxycyclin e monohydrate ), 100 MG, TABLET, ORAL, ZYDUS PHARMACEU, 50 ea. BOTTLE Active [id number] 3 2022 14 Pharmac y Data Transac tion Service Facilit y FINASTERIDE (FINASTERID E), 5 MG, TABLET, ORAL, EXELAN PHARMACE, 90 ea. BOTTLE Active [id number] 4 2023 90 Pharmac y Data Transac tion Service Facilit y FINASTERIDE (FINASTERID E), 5 MG, TABLET, ORAL, EXELAN PHARMACE, 90 ea. BOTTLE Active [id number] 4 2023 90 Pharmac y Data Transac tion Service Facilit y FINASTERIDE 5MG TAB TAKE ONE TABLET BY MOUTH DAILY ORAL ACTIVE MEGHA CRUZ 2015 IELD LOSARTAN 25MG TAB TAKE ONE TABLET BY MOUTH DAILY ORAL ACTIVE MEGHA CRUZ 2015 IELD [place] POTASSIUM (losartan potassium), 25 MG, TABLET, ORAL, CARE PHARMACE, 1000 ea. BOTTLE Active [id number] 4 2023 90 Pharmac y Data Transac tion Service Facilit y MULTIVITAMI NS W/MINERALS TAB TAKE ONE TABLET BY MOUTH DAILY ORAL ACTIVE MEGHA CRUZ 2015 [place] OLODATEROL 2.5MCG/TIOT ROPIUM 2.5MCG/ACTU AT [facility],ORAL,6 0D,4GM INHALE 2 PUFFS (1 DOSE) BY MOUTH ONCE DAILY RESPIR ATORY (INHAL ATION) ACTIVE FERMIN SLADE SA 2020 [facility] OMEPRAZOLE (omeprazole ), 40 MG, CAPSULE DR, ORAL, AUROBINDO PHARM, 500 ea. BOTTLE Active [id number] 4 2023 90 Pharmac y Data Transac tion Service Facilit y OMEPRAZOLE (omeprazole ), 40 MG, CAPSULE DR, ORAL, AUROBINDO PHARM, 500 ea. BOTTLE Active [id number] 4 2023 90 Pharmac y Data Transac tion Service Facilit y OMEPRAZOLE 20MG CAP,EC TAKE 2 CAPSULES BY MOUTH EVERY MORNING 30 MINUTES BEFORE BREAKFAS T ORAL ACTIVE YANYFERMIN SA 2020 [facility] PREDNISONE (prednisone ), 20 MG, TABLET, ORAL, NOVITIUM/AN I PH, 500 ea. BOTTLE Active [id number] 3 2022 3 Pharmac y Data Transac tion Service Facilit y SIMVASTATIN (simvastati n), 20 MG, TABLET, ORAL, PURACAP LABORAT, 1000 ea. BOTTLE Active [id number] 4 2023 90 Pharmac y Data Transac tion Service Facilit y SIMVASTATIN (simvastati n), 20 MG, TABLET, ORAL, PURACAP LABORAT, 1000 ea. BOTTLE Active [id number] 4 2023 90 Pharmac y Data Transac tion Service Facilit y SIMVASTATIN 40MG TAB TAKE ONE-HALF TABLET BY MOUTH DAILY ORAL ACTIVE MEGHA CRUZ 2015 [facility] IELD STIOLTO RESPIMAT (tiotropium bromide/olo daterol HCl), 2.5-2.5MCG, MIST INHAL, INHALATION, BOEHRINGER ING., 4 g AER W/ADAP Cancele d [id number] : 2023 0 Pharmac y Data Transac tion Service Facilit y STIOLTO RESPIMAT (tiotropium bromide/olo daterol HCl), 2.5-2.5MCG, MIST INHAL, INHALATION, BOEHRINGER ING., 4 g AER W/ADAP Cancele d [id number] : 2023 0 Pharmac y Data Transac tion Service Facilit y STIOLTO RESPIMAT (tiotropium bromide/olo daterol HCl), 2.5-2.5MCG, MIST INHAL, INHALATION, BOEHRINGER ING., 4 g AER W/ADAP Active [id number] 4 2023 12 Pharmac y Data Transac tion Service Facilit y STIOLTO RESPIMAT (tiotropium bromide/olo daterol HCl), 2.5-2.5MCG, MIST INHAL, INHALATION, BOEHRINGER ING., 4 g AER W/ADAP Active [id number] 4 2023 12 Pharmac y Data Transac tion Service Facilit y TAMSULOSIN HCL (TAMSULOSIN HCL), 0.4 MG, CAP.SR 24H, ORAL, ZYDUS PHARMACEU, 1000 ea. BOTTLE Active [id number] 4 2023 90 Pharmac y Data Transac tion Service Facilit y TAMSULOSIN HCL (TAMSULOSIN HCL), 0.4 MG, CAP.SR 24H, ORAL, ZYDUS PHARMACEU, 1000 ea. BOTTLE Active [id number] 4 2023 90 Pharmac y Data Transac tion Service Facilit y TAMSULOSIN HCL 0.4MG CAP TAKE 1 CAPSULE BY MOUTH AT BEDTIME ORAL ACTIVE MEGHA CRUZ [place] IELD VITAMIN D3 (CHOLECALCI FEROL) TAB TAKE 5000IU BY MOUTH ONCE DAILY ORAL ACTIVE FERMIN SLADE SA 2020 [facility] [place] [facility] Allergies, Adverse Reactions, Alerts Combined list of allergies from Department of Defense and Veterans Affairs facilities. It does not include entries that were removed or entered in error. Substance Category Reaction Severity Reaction type Status Date Reported Comments Source LACTOSE Propensity to adverse reactions to substance (finding) active [facility] Immunizations Combined list of available immunizations from the Department of Defense and Veterans Affairs facilities. Immunization Series Date Given Administered By Site Reaction Lot Number CVX Code Drug Seam Sewer Status Comments Source INFLUENZA, UNSPECIFIED FORMULATION 2020 88 complet ed [facility] influenza, high-dose, quadrivalent 2020 INDIRA, () Not Given influenza , high-dose , quadrival ent DoD COVID-19 (MODERNA), MRNA, LNP-S, PF, 100 MCG/0.5 ML DOSE 2 2020 207 complet ed [facility] COVID-19 (MODERNA), MRNA, LNP-S, PF, 100 MCG/0.5 ML DOSE 1 2020 207 complet ed [facility] influenza, trivalent, adjuvanted 2018 BOGDASARIAN, () Not Given influenza , trivalent , adjuvante d DoD INFLUENZA, SEASONAL, INJECTABLE 2017 141 complet ed [facility] zoster recombinant 2017 BOGDASARIAN, () Not Given zoster recombina nt DoD ZOSTER RECOMBINANT 1 2017 187 complet ed yes [facility] INFLUENZA, SEASONAL, INJECTABLE 2016 141 complet ed pharmacy [facility] Influenza, high dose seasonal 2016 BOGDASARIAN, () Not Given Influenza , high dose seasonal DoD FLU,3 YRS (HISTORICAL) 2015 88 complet ed [facility] TDAP 2015 115 complet ed [facility] [place] [facility] FLU,3 YRS (HISTORICAL) 2014 88 complet ed Outside provider [facility] [place] [facility] HEP B, ADULT 2013 43 complet ed 2nd: 05/15/14, 3rd: 10/16/14 [facility] from [facility] [place] [facility] ZOSTER (HISTORICAL) 1997 121 complet ed [facility] [place] [facility] Vital Signs Combined list of inpatient and outpatient Vital Signs from Department of Defense and Veterans Affairs, ranging from 12 months to all on record, depending upon the facility. Vital Sign Value Date Comments Source SYSTOLIC BLOOD PRESSURE 147 11/19/19 24 09:00:35 [facility] [place] [facility] DIASTOLIC BLOOD PRESSURE 77 024 09:00:35 [facility] [place] [facility] PULSE OXIMETRY 95 11/19/2023 09:00:35 [facility] [place] [facility] WEIGHT 152 11/19/2023 09:00:35 [facility] [place] [facility] BMI 22kg/m2 11/19/2023 09:00:35 [facility] [place] [facility] HEIGHT 69 11/19/2023 09:00:35 [facility] TEMPERATURE 97.4 11/19/2023 09:00:35 [facility] PULSE 78 11/19/2023 09:00:35 [facility] RESPIRATION 20 11/19/2023 09:00:35 [facility] Encounters Combined list of: 1) Encounters from Department of Veterans Affairs facilities going back up to thelast 18 months. 2) Encounters from the Department of Defense facilities going back up to 280 months. Location Location Details Encounter Type Encounter Number Reason For Visit Attending Provider ADM Date DC Date Status Disposition Source [facility] [place] [facility] HEARING [facility] [id number] Diagnos is: ICD-10- CM Z46.1 Encount er for fitting and adjustm ent of hearing aid<br/ > BRIDGETT STEWART 02/11 [facility] [place] [facility] Outpatient Encounter [id number] 07/20 [facility] [place] [place] [facility] EYE EXAM&TX ESTAB PT 1/>VST [id number] Diagnos is: ICD-10- CM H25.13 Age-rel ated nuclear catarac t, bilater al
CAMRON FELIX Y Lisette 07/21 [facility] [place] [facility] FIT SPECTACLES BIFOCAL [id number] Diagnos is: ICD-10- CM Z46.0 Encount er for fit/adj st of spectac les and contact lenses< br/> CAMRON FELIX 07/21 [facility] RPR&REFITG SPECT XCP APHAKIA [id number] Diagnos is: ICD-10- CM Z46.0 Encount er for fit/adj st of spectac les and contact lenses< br/> SHANIQUA DAO 08/12 [facility] [place] [facility] LD OFFICE O/P EST LOW 20 MIN [id number] Diagnos is: ICD-10- CM I10 Essenti al (primar y) hyperte nsion<b r/> RONA SLADE 11/18 [place] [facility] Outpatient Encounter [id number] RONA SLADE 11[facility] Procedures Combined list of: 1) Procedures from Department of Veterans Affairs facilities going back up to thelast 18 months, not all [place] non-surgical procedures are included; 2) All procedures from the Department of Defense facilities. Procedure Procedure Type Code Date Perfomer Comments Sourc e TYPHOID VACCINE, CAPSULAR POLYSACCHARIDE (VICPS), FOR INTRAMUSCULAR USE 07/17/2004 [facility] SKIN TEST; TUBERCULOSIS, INTRADERMAL 07/16/2004 [facility] PURE TONE AUDIOMETRY (THRESHOLD); AIR ONLY 09/12/2002 [facility] Social History Combined list of available smoking, tobacco, and other social history from Department of Defense and Veterans Affairs facilities. Social History Type Response Date Comment Source Tobacco smoking status [facility] VA-TOBACCO FORMER USER 11/19/2023 [facility] [place] [facility] History of tobacco use HI-TOBACCO QUIT 15 YRS OR MORE 11/19/2023 [facility] History of tobacco use VA-TOBACCO FORMER USER 11/13/2022 [place] History of tobacco use VA-TOBACCO FORMER USER 11/13/2021 [place] History of tobacco use HI-TOBACCO QUIT 15 YRS OR MORE 11/06/2020 [facility] [place] [place] [facility] History of tobacco use VA-TOBACCO FORMER USER 12/10/2018 [place] History of tobacco use QUIT TOBACCO USE > 7 YEARS AGO 12/08/2017 quit 27 yrs ago [place] History of tobacco use QUIT TOBACCO USE > 7 YEARS AGO 12/08/2016 [place] History of tobacco use QUIT TOBACCO USE > 7 YEARS AGO 10/11/2015 [place] This section is an empty social history section. [facility] Plan of Care List of future care activities from Department of Veterans Affairs facilities. Additional future care activities may be listed in the Assessment and Plan section. Date/Time Care Activity Care Activity Detail Facili ty 11/15/2024 AMBULATORY - MEDICINE AMBULATORY - MEDICI [facility]
--- OUTSIDE RECORDS SUMMARY | 2024-07-21 00:17 | XMS_ITS ---
Author Name [facility] Address [address] [place] [address] Care Team Providers Care Crusher Feeder Name Role Phone VIPUL SLADE Primary Care [...] PART A Sep 10, 2008 PART A [id number] CAITLYN LAZO ERT PATIENT MEDICARE (WNR) MEDICARE (M) PART B Sep 10, 2008 PART B [id number] [phone] CAITLYN LAZO ERT PATIENT MEDICARE (WNR) MEDICARE (M) PART A Sep 10, 2008 PART A [id number] [phone] CAITLYN LAZO ERT PATIENT MEDICARE (WNR) MEDICARE (M) PART B Sep 10, 2008 PART B [id number] CAITLYN LAZO ERT PATIENT FOR LIFE TFL* Nov 25, 2012 [id number] CAITLYN LAZO ERT PATIENT Selected Encounter This section includes the information on record at [place] for the Encounter. Date/Time Encounter Type Encounter Description Reason Pro vider Source Jul 20, 2023 05:46 PM Outpatient Encounter ADMIN PAT ACTIVTIES (MASNONCT) IHE Encounter Template Text not used by [place] Plan of Treatment: Future Appointments (+ 6 months) and Future Tests (+/- 45 days) The Plan of Treatment section includes future care activities for the patient from all [facility] This section includes future appointments and future orders which are active, pending or scheduled. Future Appointments This section includes appointments that were scheduled to occur 6 months from the date of the Encounter, up to a maximum of 20 appointments. The data comes from all [place] treatment facilities. Appointment Date/Time Appointment Type Appointme nt Facility Name Jul 21, 2023 03:00 PM AMBULATORY - MEDICINE [facility] Aug 12, 2023 10:40 AM AMBULATORY MEDICINE [facility] Nov 19, 2023 09:00 AM AMBULATORY MEDICINE [facility] Social History: Smoking Status (Most current) and Tobacco Use (All prior to encounter date) This section includes the most current, and the historical, smoking and tobacco- related health factors from the [place] facility where the Encounter took place. Current Smoking Status This section includes the most current smoking, or tobacco-related health factor, from the [place] facility where the Encounter took place. Date/Time Current Smoking Status Comment Facil ity Nov 06, 2020 03:58 PM VA-TOBACCO FORMER USER [facility] Tobacco Use History This section includes a history of the smoking, or tobacco-related health factors, that were collected on or before the date of the Encounter. The data comes from the [place] facility where the Encounter took place. Date/Time Smoking Status/Tobacco Use Comment F acility Nov 06, 2020 03:58 PM [place]-TOBACCO QUIT 15 YRS OR MORE [facility] Encounter Notes: All associated encounter notes This section contains the clinical notes associated to the Encounter. Date/Time Encounter Note(s) Provider Source Jul 20, 2023 05:46 PM ADMINISTRATIVE NOT E: LOCAL TITLE: CCC: SCHEDULING ADMINISTRATION STANDARD TITLE: ADMINISTRATIVE NOTE DATE OF NOTE: JUL 20, 2023@17:46 ENTRY DATE: JUL 20, 2023@17:46:30 AUTHOR: FULTON,DEIDRYLIS EXP COSIGNER: URGENCY: STATUS: COMPLETED contacted [facility] to verify upcoming appointments. Successfully verified. /bakari/ NIC FERNANDEZ 2 [facility] AMSA Signed: 07/20/2023 17:47 NIC F[facility]
--- OUTSIDE RECORDS SUMMARY | 2024-07-21 00:17 | XMS_ITS | Continuity of Care Document ---
Author Organization [facility] Address [address] [place] [address]- Care Team Providers Care Puddler Pile Driving Name Role Phone Sergio Ballesteros MD Primary Care Physician [phone] Encounter 06/20/24 - 06/27/24 [facility] [address], [address] [place] [address]- Attending Physician: Conor Suarez Admitting Physician: Conor Suarez Referring Physician: Conor Suarez Encounter Type: OutPatient One Time Allergies, Adverse Reactions, Alerts Substance Criticality Severity Reaction Reaction Severity Status Pollen Active Lactose Active Medications Advair HFA 115 mcg / 21 mcg 2 puffs, Inhalation, 2 times a day, # 180 each, 0 Refills, Maintenance, 03/08/20 10:51:00 AM EDT, Aerosol Start Date: 03/08/20 Status: Ordered Quantity: 180.0 Unit: each Repeat number: 1 Cetirizine = 10 mg, By Mouth, Daily, 0 Refills, Maintenance, 04/26/13 9:32:09 AM EDT Start Date: 04/26/13 Status: Ordered Repeat number: 1 citalopram 10 mg oral tablet 1 tablet = 10 mg, By Mouth, Daily, 0 Refills, Maintenance, 04/26/13 9:31:43 AM EDT Start Date: 04/26/13 Status: Ordered Repeat number: 1 Dexamethasone 2 tablets the day of and two th day after chemo and skips one day for omeprazole for nausea, 0 Refills, Maintenance, 07/24/16 1:32:57 PM EST Start Date: 07/24/16 Status: Ordered Repeat number: 1 Fiber caps generic Fiber caps generic, Refills 0, Maintenance, 2 pills daily, 03/08/20 10:53:00 AM EDT, Supply Start Date: 03/08/20 Status: Ordered Repeat number: 1 finasteride 5 mg oral tablet 1 tablet = 5 mg, By Mouth, Daily, 0 Refills, Maintenance, 07/17/15 8:31:13 AM EST Start Date: 07/17/15 Status: Ordered Repeat number: 1 Glucosamine & Chondroitin with MSM 1 tablet, By Mouth, 3 times a day, 0 Refills, Maintenance, 07/17/14 10:27:27 AM EST Start Date: 07/17/14 Status: Ordered Repeat number: 1 Havrix 1440 units/mL preservative free intramuscular suspension 1 mL = 1,440 units, Intramuscular, Once, DIR, # 1 mL, 0 Refills, Maintenance, 04/26/13 9:29:55 AMEDT, Suspension Start Date: 04/26/13 Status: Ordered Quantity: 1.0 Unit: mL Repeat number: 1 Icaps AREDS By Mouth, Daily, 0 Refills, Maintenance, 07/24/16 1:32:19 PM EST Start Date: 07/24/16 Status: Ordered Repeat number: 1 losartan 25 mg oral tablet 1 tablet = 25 mg, By Mouth, Daily, 0 Refills, Maintenance, 04/26/13 9:38:33 AM EDT Start Date: 04/26/13 Status: Ordered Repeat number: 1 melatonin 10 mg oral capsule 1 capsule = 10 mg, By Mouth, Daily at bedtime, 0 Refills, Maintenance, 09/05/19 10:13:00 AM EST Start Date: 09/05/19 Status: Ordered Repeat number: 1 Multivitamin By Mouth, Daily, 0 Refills, Maintenance, 04/26/13 9:39:18 AM EDT Start Date: 04/26/13 Status: Ordered Repeat number: 1 Omeprazole = 20 mg, By Mouth, Daily, 0 Refills, Maintenance, 07/24/16 1:32:27 PM EST Start Date: 07/24/16 Status: Ordered Repeat number: 1 ProAir HFA 90 mcg/inh inhalation aerosol 2 puffs, Inhalation, 4 times a day, PRN as needed for wheezing, # 8.5 Gm, 1 Refills, Maintenance, 07/01/22 11:22:00 AM EST, Aerosol, [id number], copd j44.9, 2 puffs Inhalation 4 times a day,x30 days,PRN:as needed for wheezing, 176, cm, 07/01/22 11:16:00 EST, Height Start Date: 07/01/22 Stop Date: 08/30/22 Status: Ordered Quantity: 8.5 Unit: g Repeat number: 2 ProAir HFA 90 mcg/inh inhalation aerosol with adapter 2, puffs, Inhalation, Every 4 hours, PRN, # 1 each, Refills 3, Tot. Refills 3, Maintenance, 07/02/21 12:16:00 PM EST, Aerosol, Route to Pharmacy Electronically, [id number], [email or web address], don't refill until patient calls, 176, cm, 03/08/20 9:57:00 EDT, Heigh t Start Date: 07/02/21 Stop Date: 06/27/22 Status: Ordered Quantity: 1.0 Unit: each Repeat number: 4 Simvastatin = 20 mg, By Mouth, Daily at bedtime, 0 Refills, Maintenance, 04/26/13 9:32:44 AM EDT Start Date: 04/26/13 Status: Ordered Repeat number: 1 Stiolto Respimat 60 ACT 2.5 mcg-2.5 mcg/inh inhalation aerosol 2 inhalation, Inhalation, Every 24 hours, # 12 Gm, 3 Refills, Maintenance, 06/06/24 8:50:00 AM EDT,[facility], 176, cm, 06/09/23 11:11:00 EDT, Height Start Date: 06/06/24 Status: Ordered Quantity: 12.0 Unit: g Repeat number: 1 tamsulosin 0.4 mg oral capsule 1 capsule = 0.4 mg, By Mouth, Daily, 0 Refills, Maintenance, 07/17/15 8:30:36 AM EST Start Date: 07/17/15 Status: Ordered Repeat number: 1 Viagra 100 mg oral tablet 1 tablet = 100 mg, By Mouth, Daily, PRN, 0 Refills, Maintenance, 04/26/13 9:39:30 AM EDT Start Date: 04/26/13 Status: Ordered Repeat number: 1 Vitamin D3 = 5,000 units, By Mouth, Daily, 0 Refills, Maintenance, 04/26/13 9:31:16 AM EDT Start Date: 04/26/13 Status: Ordered Repeat number: 1 ZyrTEC 10 mg oral tablet 1 tablet = 10 mg, By Mouth, Daily, # 30 tablet, 0 Refills, Maintenance, 01/22/16 1:38:24 PM EDT, Tablet Start Date: 01/22/16 Status: Ordered Quantity: 30.0 Unit: tablet Repeat number: 1 Problem List Condition Confirmation Course Effective Dates Status Health St atus Informant COPD, mild Confirmed Active Results Radiology Reports * Exam Date Time Procedure Performing Provider Status 06/20/24 9:59 AM US Renal Bladder Jose M Hernandez; Modified Notes: (US Renal Bladder) Reason For Exam: calculus of kidney RESULT: US Renal Bladder [facility] [address] [place] [address]. Reason: Calculus of kidney. COMPARISON: Multiple prior ultrasounds, most recently dated 05/21/2023. FINDINGS: Right kidney: 11.0 cm in length. No hydronephrosis. Normal parenchymal thickness and echotexture. Shadowing echogenic focus measuring up to 0.6 cm in the upper pole. Additional scattered non-shadowing echogenic foci are also noted. No suspicious mass. Left kidney: 11.0 cm in length. No hydronephrosis. Normal parenchymal thickness and echotexture. Nostones. No suspicious mass. Simple cyst measuring 2.3 x 3.6 x 3.0 cm in the lower pole, similar to prior. Urinary bladder: Mildly trabeculated without stone, mass, or debris. Prostate: 4.1 x 3.8 x 4.0 cm, volume 32.2 cc. IMPRESSION: Nonobstructing 0.6 cm upper pole right renal calculus. Additional echogenic foci in the right kidney may represent additional nonobstructing calculi, collecting system debris, or other artifact. No sonographically apparent left renal calculi. No hydronephrosis. Stable 3.6 cm left renal cyst. WSN: [id number] Ordering Physician: Conor Izaguirre Dictated By: José Miguel Garg MD Dictated Date/Time: 06/20/24 1:12 pm Reviewed By: José Miguel Garg MD Signed By: José Miguel Garg MD Signed Date/Time: 06/20/24 1:12 pm Transcribed By: MANDEEP Transcribed Date/Time: 06/20/24 12:30 pm Social History Social History Type Response Smoking Status Former smoker; Tobac co user in household: No; Type: Cigarettes; Other: Quit smoking 2005; Number of years: 40; Total pack years: 40; Started at age: 16; Stopped at age: 60; entered on: 04/22/16 Sex Sex Representation Male (finding) Patient Care team information Care Team Personnel Name: Favian GARDNER, Sergio Mo Position: Reference Physician Member Role: PCP Address: [address] [place] [address] [place] [address] Telecom: Care Team Related Persons Name: REYNALDO LAZO Insurance Providers Guarantor name: ALEJA LAZO Health Plan Information #: 2 Payer: FOR LIFE MCR A ONLY Member Number: [id number] Policy Number: NA Group Number: NA Health Plan Information #: 1 Payer: MEDICARE PART B OUTPT Member Number: [id number] Policy Number: NA Group Number: NA
--- OUTSIDE RECORDS SUMMARY | 2024-07-21 00:17 | XMS_ITS | Encounter Summary ---
Author Name [facility] Organization [facility] [facility] [place] Address [address] [place] [address] Care Team Providers Care Dispute Resolution Analyst Name Role Phone VIPUL SLADE Primary Care [...] PART A Sep 10, 2008 PART A [id number] CAITLYN LAZO ERT PATIENT MEDICARE (WNR) MEDICARE (M) PART B Sep 10, 2008 PART B [id number] CAITLYN LAZO ERT PATIENT MEDICARE (WNR) MEDICARE (M) PART A Sep 10, 2008 PART A [id number] CAITLYN LAZO ERT PATIENT MEDICARE (WNR) MEDICARE (M) PART B Sep 10, 2008 PART B [id number] CAITLYN LAZO ERT PATIENT FOR LIFE TFL* Nov 25, 2012 [id number] CAITLYN LAZO ERT PATIENT Selected Encounter This section includes the information on record at [place] for the Encounter. Date/Time Encounter Type Encounter Description Reason Provider Source Jul 21, 2023 04:17 PM FIT SPECTACLES BIFOCAL OPTOMETRY ICD-10-CM Z46.0 Encounter for fit/adjst of spectacles and contact lenses CORINNA FELIX Encounter Template Text not used by [place] Assessments - Encounter Diagnoses This section includes the primary and secondary diagnoses documented for the Encounter. Date/Time Primary/Secondary Diagnosis Diagnosis Name Provider Source Jul 21, 2023 04:17 PM PRIMARY Encounter for fit/adjst of spectacles and contact lenses CHRISTIAN DAO [facility] Plan of Treatment: Future Appointments (+ 6 months) and Future Tests (+/- 45 days) The Plan of Treatment section includes future care activities for the patient from all [place] [facility]. This section includes future appointments and future orders which are active, pending or scheduled. Future Appointments This section includes appointments that were scheduled to occur 6 months from the date of the Encounter, up to a maximum of 20 appointments. The data comes from all [place] treatment facilities. Appointment Date/Time Appointment Type Appointme nt Facility Name Aug 12, 2023 10:40 AM [facility]ULATORY - MED[facility]INE [facility] Nov 19, 2023 09:00 AM AMBULATORY - MEDICINE [facility] Social History: Smoking Status (Most current) and Tobacco Use (All prior to encounter date) This section includes the most current, and the historical, smoking and tobacco- related health factors from the [place] facility where the Encounter took place. Current Smoking Status This section includes the most current smoking, or tobacco-related health factor, from the [place] facility where the Encounter took place. Date/Time Current Smoking Status Comment Xu ity Nov 06, 2020 03:58 PM [place]-TOBACCO FORMER USER [facility] Tobacco Use History This section includes a history of the smoking, or tobacco-related health factors, that were collected on or before the date of the Encounter. The data comes from the [place] facility where the Encounter took place. Date/Time Smoking Status/Tobacco Use Comment F acility Nov 06, 2020 03:58 PM [place]-TOBACCO QUIT 15 YRS OR MORE [facility] Encounter Notes: All associated encounter notes This section contains the clinical notes associated to the Encounter. Date/Time Encounter Note(s) Provider Source Jul 21, 2023 04:17 PM OPTOMETRY NOTE: LOCAL TITLE: OPTOMETRY NOTE STANDARD TITLE: OPTOMETRY NOTE DATE OF NOTE: JUL 21, 2023@16:17 ENTRY DATE: JUL 21, 2023@16:17:20 AUTHOR: EDISON HYLTON EXP COSIGNER: URGENCY: STATUS: COMPLETED OPTOMETRY NOTE Has ADDENDA bif photo parmar The quote provided below is for informational purposes only. Please verify prior to the creation of a purchase order. ALEJA LAZO 8064 RX INFORMATION OD +1.50 -2.00 X79 Add:+2.75 Pzm:0.00 Dir: Prz2:0.00 Dir2: OS +1.75 -0.50 X116 Add:+2.75 Pzm:0.00 Dir: Prz2:0.00 Dir2: FITTING INFORMATION FPD:62 NPD:59 [place]:R: L: SEG HT:R:17 L:17 Tint:None Shade:None [place] Billable Items FRAME: SA7 SILVER [id number] Right Lens: POLY BIFOCAL FT28 PHOTOCHROMIC PARMAR 1.586 POLY Left Lens: POLY BIFOCAL FT28 PHOTOCHROMIC PARMAR 1.586 POLY KLEAR ANTI-REFLECTIVE COATING bif yellow #2 The quote provided below is for informational purposes only. Please verify prior to the creation of a purchase order. ALEJA LAZO 8064 RX INFORMATION OD +1.50 -2.00 X79 Add:+2.75 Pzm:0.00 Dir: Prz2:0.00 Dir2: OS +1.75 -0.50 X116 Add:+2.75 Pzm:0.00 Dir: Prz2:0.00 Dir2: FITTING INFORMATION FPD:62 NPD:59 [place]:R: L: SEG HT:R:24 L:24 Tint:YELLOW Shade:2 [place] Billable Items FRAME: FX10 [facility] [id number] Right Lens: POLY BIFOCAL FT28 1.586 POLY Left Lens: POLY BIFOCAL FT28 1.586 POLY KLEAR ANTI-REFLECTIVE COATING SOLID TINT /es/ EDISON HYLTON MATERIAL PREPARATION WORKER Signed: 07/21/2023 16:17 Receipt Acknowledged By: 07/22/2023 13:05 /bakari/ CHRISTIAN FOX [facility] 07/22/2023 ADDENDUM STATUS: COMPLETED PDS photofinishing laboratory worker fit 2 FT*28 Bifocal eyeglasses on 07/21/2023. OPT HT entered consult(s) as requested for provider signature. /bakari/ CHRISTIAN FOX [facility] Signed: 07/22/2023 13:07 EDISON HYLTON [facility]
--- OUTSIDE RECORDS SUMMARY | 2024-07-21 00:18 | XMS_ITS | Encounter Summary ---
Author Name [facility] [place] [facility] [place] Organization [facility] [place] Address [address] [place] [address] Care Team Providers Care Investment Trader Name Role Phone VIPUL SLADE Primary Care [...] PART A Sep 10, 2008 PART A [id number] [phone] CAITLYN LAZO ERT PATIENT MEDICARE (WNR) MEDICARE (M) PART B Sep 10, 2008 PART B [id number] CAITLYN LAZO ERT PATIENT MEDICARE (WNR) MEDICARE (M) PART A Sep 10, 2008 PART A [id number] CAITLYN LAZO ERT PATIENT MEDICARE (WNR) MEDICARE (M) PART B Sep 10, 2008 PART B [id number] [phone] CAITLYN LAZO ERT PATIENT FOR LIFE TFL* Nov 25, 2012 [id number] CAITLYN LAZO ERT PATIENT Selected Encounter This section includes the information on record at [place] for the Encounter. Date/Time Encounter Type Encounter Description Reason Provider Source Aug 12, 2023 10:40 AM RPR&REFITG SPECT XCP APHAKIA OPTOMETRY ICD-10-CM Z46.0 Encounter for fit/adjst of spectacles and contact lenses CHRISTIAN DAO [facility] Encounter Template Text not used by [place] Assessments - Encounter Diagnoses This section includes the primary and secondary diagnoses documented for the Encounter. Date/Time Primary/Secondary Diagnosis Diagnosis Name Provider Source Aug 12, 2023 10:49 AM PRIMARY Encounter for fit/adjst of spectacles and contact lenses CHRISTIAN DAO [facility] Plan of Treatment: Future Appointments (+ 6 months) and Future Tests (+/- 45 days) The Plan of Treatment section includes future care activities for the patient from all [place] [facility]. This section includes future appointments and future orders which are active, pending or scheduled. Future Appointments This section includes appointments that were scheduled to occur 6 months from the date of the Encounter, up to a maximum of 20 appointments. The data comes from all [place] treatment facilities. Appointment Date/Time Appointment Type Appointme nt Facility Name Nov 19, 2023 09:00 AM AMBULATORY - MEDICINE [facility] Social History: Smoking Status (Most current) and Tobacco Use (All prior to encounter date) This section includes the most current, and the historical, smoking and tobacco- related health factors from the [place] facility where the Encounter took place. Current Smoking Status This section includes the most current smoking, or tobacco-related health factor, from the [place] facility where the Encounter took place. Date/Time Current Smoking Status Comment Xu ity Nov 06, 2020 03:58 PM [place]-TOBACCO FORMER USER [facility] Tobacco Use History This section includes a history of the smoking, or tobacco-related health factors, that were collected on or before the date of the Encounter. The data comes from the [place] facility where the Encounter took place. Date/Time Smoking Status/Tobacco Use Comment F acility Nov 06, 2020 03:58 PM [place]-TOBACCO QUIT 15 YRS OR MORE [facility] Encounter Notes: All associated encounter notes This section contains the clinical notes associated to the Encounter. Date/Time Encounter Note(s) Provider Source Aug 12, 2023 10:46 AM OPTOMETRY NOTE: LOCAL TITLE: OPTOMETRY NOTE STANDARD TITLE: OPTOMETRY NOTE DATE OF NOTE: AUG 12, 2023@10:46 ENTRY DATE: AUG 12, 2023@10:46:46 AUTHOR: CHRISTIAN DAO EXP COSIGNER: URGENCY: STATUS: COMPLETED Patient came in today with his new night time driving glasses, One lense is made with wrong RX and with a Trifocal. Patient corrected RX and Order listed below. ALEJA LAZO 8064 RX INFORMATION OD +1.50 -2.00 X79 Add:+2.75 Pzm:0.00 Dir: Prz2:0.00 Dir2: OS +1.75 -0.50 X116 Add:+2.75 Pzm:0.00 Dir: Prz2:0.00 Dir2: FITTING INFORMATION FPD:62 NPD:59 [place]:R: L: SEG HT:R:24 L:24 Tint:YELLOW Shade:2 [place] Billable Items FRAME: FX10 GUNMETAL [id number] Right Lens: POLY BIFOCAL FT28 1.586 POLY Left Lens: POLY BIFOCAL FT28 1.586 POLY KLEAR ANTI-REFLECTIVE COATING SOLID TINT Will forward to kemal to send back to lab to be remade. /bakari/ CHRISTIAN FOX [facility]CH[facility]ICD[facility] Signed: 08/12/2023 10:49 Receipt Acknowledged By: 08/13/2023 16:09 /bakari/ [facility]
--- OUTSIDE RECORDS SUMMARY | 2024-07-21 00:18 | XMS_ITS | Encounter Summary ---
Author Name [facility] Organization [facility] [place] Address [address] [place] [id number] Care Team Providers Care Account Engineer Name Role Phone YANYVIPUL Primary Care Provider Unavailabl e Insurance Providers: [...] PART A Sep 10, 2008 PART A [id number] [phone] CAITLYN LAZO ERT PATIENT MEDICARE (WNR) MEDICARE (M) PART B Sep 10, 2008 PART B [id number] [phone] CAITLYN LAZO ERT PATIENT MEDICARE (WNR) MEDICARE (M) PART A Sep 10, 2008 PART A [id number] CAITLYN LAZO ERT PATIENT MEDICARE (WNR) MEDICARE (M) PART B Sep 10, 2008 PART B [id number] CAITLYN LAZO ERT PATIENT FOR LIFE TFL* Nov 25, 2012 [id number] CAITLYN LAZO ERT PATIENT Selected Encounter This section includes the information on record at [place] for the Encounter. Date/Time Encounter Type Encounter Description Reason Provider Source Nov 19, 2023 09:00 AM OFFICE O/P EST LOW 20 MIN PRIMARY CARE/MEDICINE ICD-10-CM I10 Essential (primary) hypertension VIPUL SLADE Chris Encounter Template Text not used by [place] Assessments - Encounter Diagnoses This section includes the primary and secondary diagnoses documented for the Encounter. Date/Time Primary/Secondary Diagnosis Diagnosis Name Provider Source Nov 19, 2023 09:22 AM PRIMARY Essential (primary) hypertension VIPUL SLADE [place] Nov 19, 2023 09:22 AM SECONDARY Gastro-esophageal reflux disease without esophagitis VIPUL SLADE [place] Nov 19, 2023 09:22 AM SECONDARY Hyperlipidemia, unspecified VIPUL SLADE [place] Social History: Smoking Status (Most current) and Tobacco Use (All prior to encounter date) This section includes the most current, and the historical, smoking and tobacco- related health factors from the [place] facility where the Encounter took place. Current Smoking Status This section includes the most current smoking, or tobacco-related health factor, from the [place] facility where the Encounter took place. Date/Time Current Smoking Status Comment Facil ity Nov 13, 2022 09:00 AM [place]-TOBACCO QUIT 15 YRS OR MORE [facility] Tobacco Use History This section includes a history of the smoking, or tobacco-related health factors, that were collected on or before the date of the Encounter. The data comes from the [place] facility where the Encounter took place. Date/Time Smoking Status/Tobacco Use Comment F acility Nov 13, 2022 09:00 AM VA-TOBACCO QUIT 15 YRS OR MORE [facility] Nov 13, 2021 09:30 AM VA-TOBACCO FORMER USER [facility] Nov 13, 2021 09:30 AM VA-TOBACCO QUIT 15 YRS OR MORE [facility] December 10, 2018 11:59 AM VA-TOBACCO FORMER USER [place] December 10, 2018 11:59 AM VA-TOBACCO QUIT 15 YRS OR MORE [place] December 08, 2017 02:57 PM QUIT TOBACCO USE > 7 YEARS AGO quit 27 yrs ago [facility] December 08, 2016 03:20 PM QUIT TOBACCO USE > 7 YEARS AGO [place] Oct 11, 2015 09:53 AM QUIT TOBACCO USE > 7 YEARS AGO [facility] Encounter Notes: All associated encounter notes This section contains the clinical notes associated to the Encounter. Date/Time Encounter Note(s) Provider Source Nov 19, 2023 05:41 AM PHYSICIAN NOTE: LOCAL TITLE: MD NOTE STANDARD TITLE: PHYSICIAN NOTE DATE OF NOTE: NOV 19, 2023@05:41 ENTRY DATE: NOV 19, 2023@05:41:21 AUTHOR: VIPUL SLADE EXP COSIGNER: URGENCY: STATUS: COMPLETED HISTORY OF PRESENT ILLNESS: ALEJA LAZO, is a 78 yo MALE , who presents at the [facility] for his annual visit. Vet maintains a nonVA PCP: Dr Sergio Ballesteros. He utilizes audiology and optometry services at the [place]. NonVA Specialists: Vascular: Dr Carr Oncologist: Dr Delarosa Helicopter Utility Aircrewman: Dr Márquez Book Salesman: Dr Keller Active problems - Computerized Problem List is the source for the followin. Benign prostatic hypertrophy 2. Vitamin D deficiency 3. Gastroesophageal reflux disease without esophagitis 4. Primary erectile dysfunction 5. Insomnia 6. Environmental allergy (SNOMED CT 218633047) 7. HTN - Hypertension (SCT 55565687) 8. Hyperlipidemia (SCT 41379989) 9. Prediabetes 10. NON VA PCP 11. History of malignant neoplasm of oesophagus 12. Chronic obstructive lung disease 13. Abdominal aortic aneurysm 14. Osteoarthritis 15. Bunion 16. Closed fracture of clavicle 17. Hearing loss 18. Tinnitus The following VA and Non-VA meds were reconciled with patient: Active Outpatient Medications (including Supplies): Start Date Active Non-VA Medications Refills Expiration ===== 1) Non-VA ALBUTEROL 90MCG (CFC-F) 200D ORAL ACTIVE INHL Si PUFFS BY MOUTH NEEDED 2) Non-VA CETIRIZINE HCL 10MG TAB Sig: ACTIVE 10MG BY MOUTH DAILY 3) Non-VA CITALOPRAM HYDROBROMIDE 20MG TAB ACTIVE SiMG BY MOUTH DAILY 4) Non-VA FINASTERIDE 5MG TAB SiMG BY ACTIVE MOUTH DAILY 5) Non-VA LOSARTAN 25MG TAB SiMG BY ACTIVE MOUTH DAILY 6) Non-VA MULTIVITAMIN/MINERALS CAP/TAB ACTIVE Si TABLET BY MOUTH DAILY 7) Non-VA OLODATEROL/TIOTROP 2.5MCG/ACTUAT ACTIVE 60D INH Si PUFFS (1 DOSE) BY MOUTH ONCE DAILY 8) Non-VA OMEPRAZOLE 20MG EC CAP SiMG ACTIVE BY MOUTH EVERY MORNING 30 MINUTES BEFORE BREAKFAST 9) Non-VA SIMVASTATIN 40MG TAB SiMG ACTIVE BY MOUTH DAILY 10) Non-VA TAMSULOSIN HCL 0.4MG CAP Sig: ACTIVE 0.4MG BY MOUTH AT BEDTIME 11) Non-VA VITAMIN D3 (CHOLECALCIFEROL) TAB ACTIVE SiIU BY MOUTH ONCE DAILY ALLERGIES: ========= LACTOSE HISTORY: PERIOD OF SERVICE - [facility] FROM Aug TO Aug COMBAT SERVICE INDICATED: No VITAL SIGNS: Blood Pressure 147/77 (11/19/2023 09:00)Repeat BP: 136/72 Pulse 78 (11/19/2023 09:00) Respiration 20 (11/19/2023 09:00) Pulse Oximetry 95% (11/19/2023 09:00) Temperature 97.4 F [36.3 C] (11/19/2023 09:00) Pain 0 (11/13/2022 09:03) Height 69 in [175.3 cm] (11/19/2023 09:00) Weight 152 lb [68.95 kg] (11/19/2023 09:00) BMI BMI: 22.5 REVIEW OF SYSTEMS: ENT: No sore throat, no cough CARDIOVASCULAR: No chest pain, no palpitations RESPIRATORY: No SOB, no wheezing GASTROINTESTINAL: No abd pain, no N/V/D GENITOURINARY: No dysuria, no hematuria MUSCULOSKELETAL: No joint pain, no joint swelling PSYCHIATRIC: No anxiety, no trouble sleeping, no depression NEUROLOGIC: No H/A, no numbness, no weakness, no tingling EXAMINATION: GENERAL: WD/WN , pleasant & in NAD HEENT: Moist mucosa NECK: Supple, no carotid bruits HEART: RRR, S1-S2, no murmurs LUNGS: CTA B/L, no wheezes ABDOMEN: Soft, NT/ND PERIPH PULSES: 2+ B/L EXTREMITIES: FROM x 4, gait normal NEUROLOGIC: AAO x3, no focal neurological deficits PSYCHIATRIC: Good eye contact, affect normal ASSESSMENT/PLAN: 1. Hypertension: well controlled on losartan 25mg/day 2. Hyperlipidemia: on simvastatin 20mg QHS 3. Prediabetes: under dietary control 4. COPD: on Stiolto Respimat 2.5/2.5 2 puffs daily and albuterol inh QID prn 5. BPH: on tamsulosin 0.4mg/QHS and finasteride 5mg/day 7. Anxiety D/O: on citalopram 10mg/day 8. Perennial Allergies: on cetirizine 10mg/day 9. Vitamin D Deficiency: on Vit D3 5000IU/daily 10. GERD: on omeprazole 40mg/day 11. Colonoscopy Screenin +polyps, Dr Coronado, will obtain screenings through his nonVA PCP FOLLOW UP: 1 year - Annual - vet to bring PCP labs ========= No barriers; Patient understands and agrees to current treatment plan. If pt has any questions, concerns, or changes in current health status he/she will call or come in to the VA. Medication Reconciliation: Outpatient: Has the patient been taking medications as documented in the EMLR? YES: The patient has been taking medications as documented in the EMLR. Essential Medication List for Review used to complete this medication reconciliation. INCLUDED IN THIS LIST: Alphabetical list of active outpatient prescriptions dispensed from this VA (local) and dispensed from another VA or DoD facility (remote) as well as [...] whether with a VA or non-VA provider. JLV Link Data on this list may not be complete. Please check JLV. Allergies/ADRs (Tool #5) FACILITY ALLERGY/ADR -------- No Remote Allergy/ADR Data available for this patient [facility] LACTOSE Med Recon NoGlossary (Tool #1) INCLUDED IN THIS LIST: Alphabetical list of active outpatient prescriptions dispensed from this [facility] (local) and dispensed from another [place] or [place] facility (remote) as well as [...] the patient into personal health records (i.e. [employer]) are NOT included in this list. Non-VA medications documented outside this [place], remote inpatient orders (regardless of status) and remote clinic medications are NOT included in this list. The patient and provider must always discuss medications the patient is taking, regardless of where the medication was dispensed or obtained. ---- Non-VA ALBUTEROL 90MCG (CFC-F) 200D ORAL INHL [...] ONCE DAILY Medication prescribed by Non-VA provider. ---- SUPPLIES ---- HTN Assess for Elevated BP>=140/90: Repeat blood pressure: 136/72 /es/ VIPUL SLADE MD Primary Care Physician Signed: 11/19/2023 09:23 VIPUL SLADE [place]
--- OUTSIDE RECORDS SUMMARY | 2024-07-21 00:18 | XMS_ITS | Encounter Summary ---
Author Name [facility] Address [address] [place] [id number] Care Team Providers Care Drainman Name Role Phone VIPUL SLADE Primary Care [...] PART A Sep 10, 2008 PART A [id number] CAITLYN LAZO ERT PATIENT MEDICARE (WNR) MEDICARE (M) PART B Sep 10, 2008 PART B [id number] CAITLYN LAZO ERT PATIENT MEDICARE (WNR) MEDICARE (M) PART A Sep 10, 2008 PART A [id number] CAITLYN LAZO ERT PATIENT MEDICARE (WNR) MEDICARE (M) PART B Sep 10, 2008 PART B [id number] [phone] CAITLYN LAZO ERT PATIENT FOR LIFE TFL* Nov 25, 2012 [id number] CAITLYN LAZO ERT PATIENT Selected Encounter This section includes the information on record at [place] for the Encounter. Date/Time Encounter Type Encounter Description Reason Provider Source Nov 19, 2023 09:01 AM Outpatient Encounter PRIMARY CARE/MEDICINE VIPUL SLADE Chris Encounter Template Text not used by [place] Vital Signs: All taken on the encounter date This section contains inpatient and outpatient Vital Signs collected on the date of the Encounter. Date/Time Temperature Pulse Blood Pressure Respiratory Rate SP02 Pain Height Weight Body Mass Index Source Nov 19, 2023 09:21 AM 136/72 [facility] Nov 19, 2023 09:00 AM 97.4 78 147/77 20 95 69 152 22 [facility] Social History: Smoking Status (Most current) and Tobacco Use (All prior to encounter date) This section includes the most current, and the historical, smoking and tobacco- related health factors from the [place] facility where the Encounter took place. Current Smoking Status This section includes the most current smoking, or tobacco-related health factor, from the [place] facility where the Encounter took place. Date/Time Current Smoking Status Comment Facil ity Nov 19, 2023 09:01 AM VA-TOBACCO FORMER USER [facility] Tobacco Use History This section includes a history of the smoking, or tobacco-related health factors, that were collected on or before the date of the Encounter. The data comes from the [place] facility where the Encounter took place. Date/Time Smoking Status/Tobacco Use Comment F acility Nov 19, 2023 09:01 AM [place]-TOBACCO QUIT 15 YRS OR MORE [facility] Nov 06, 2020 03:58 PM VA-TOBACCO FORMER USER [facility] Nov 06, 2020 03:58 PM [place]-TOBACCO QUIT 15 YRS OR MORE [facility] Encounter Notes: All associated encounter notes This section contains the clinical notes associated to the Encounter. Date/Time Encounter Note(s) Provider Source Nov 19, 2023 09:01 AM PREVENTIVE MEDICIN E NURSING NOTE: LOCAL TITLE: CLINICAL REMINDERS/NURSING STANDARD TITLE: PREVENTIVE MEDICINE NURSING NOTE DATE OF NOTE: NOV 19, 2023@09:01 ENTRY DATE: NOV 19, 2023@09:01:48 AUTHOR: TAYLER CERON COSIGNER: URGENCY: STATUS: COMPLETED Tobacco Pack Year History: Patient used cigarettes in the past, but quit and does not currently use them: Quit smoking GREATER THAN OR EQUAL to 15 years ago. Advance Directive Screen MH AD: Patient does not have a completed advance directive on file at any facility, [facility] or outside. S/he is not interested in completing one at this time. The patient received education about Advance Directives and written notification of his/her rights. Suicide Screen: C-SSRS Screening [place] Suicide Severity Rating Scale (C-SSRS) screener 1. Over the past month, have you wished you were or wished you could go to sleep and not wake up? No 2. Over the past month, have you had any actual thoughts of killing yourself? No 3. Over the past month, have you been thinking about how you might do this? Response not required due to responses to other questions. 4. Over the past month, have you had these thoughts and had some intention of acting on them? Response not required due to responses to other questions. 5. Over the past month, have you started to work out or worked out the details of how to kill yourself? Response not required due to responses to other questions. 6. If yes, at any time in the past month did you intend to carry out this plan? Response not required due to responses to other questions. 7. In your lifetime, have you ever done anything, started to do anything, or prepared to do anything to end your life (for example, collected pills, obtained a gun, gave away valuables, went to the roof but didn't jump)? No 8. If YES, was this within the past 3 months? Response not required due to responses to other questions. Homelessness/Food Insecurity Screen: In the past 2 months, have you been living in stable housing that you own, rent, or stay in as part of a household? Yes - Living in stable housing. Are you worried or concerned that in the next 2 months you may NOT have stable housing that you own, rent, or stay in as part of a household? No - Not worried about housing near future [facility] reports the following: Within the past 12 months, you worried whether your food would run out before you got money to buy more. Never true Within the past 12 months, the food you bought just didn't last and you didn't have money to get more. Never true Depression Screening: Perform PHQ-2 A PHQ-2 screen was performed. The score was 0 which is a negative screen for depression. Over the past two weeks, how often have you been bothered by the following problems? 1. Little interest or pleasure in doing things Not at all 2. Feeling down, depressed, or hopeless Not at all Falls & Incontinence Screen: Falls Screen: During the past 12 months, did the patient report any falls? 4. No falls within the past year. Incontinence Screen: During the past 12 months, has the patient has any characteristics of incontinence (ability, voiding, leakage, etc.)? No incontinence. Hepatitis B Immunization: The patient declines to receive the recommended dose of Hepatitis B vaccine. Immunization: HEP B, UNSPECIFIED FORMULATION Refusal Reason: PATIENT DECISION Patient refuses all immunization(s) in the HepB group Date Documented: 11/19/23 09:04 Pneumococcal Conjugate Vaccine (PCV15/PCV20): Refuses PCV vaccine Immunization: PNEUMOCOCCAL CONJUGATE, UNSPECIFIED FORMULATION Refusal Reason: PATIENT DECISION Patient refuses all immunization(s) in the PneumoPCV group Date Documented: 11/19/23 09:04 Tobacco Use Screening: The patient is a former tobacco user. The patient quit fifteen or more years ago. Influenza Immunization: The patient declines to receive the recommended dose of seasonal influenza vaccine. Immunization: INFLUENZA, UNSPECIFIED FORMULATION Refusal Reason: PATIENT DECISION Patient refuses all immunization(s) in the FLU group Date Documented: 11/19/23 09:05 Alcohol Use Screen (AUDIT-C): Alcohol Screen: SCREEN FOR ALCOHOL (AUDIT-C) An alcohol screening test (AUDIT-C) was negative (score=0). 1. How often did you have a drink containing alcohol in the past year? Consider a drink to be a 12 ounce can or bottle of regular beer, 8 ounces of malt liquor, a 5 ounce glass of table wine, or a 1.5 ounce shot of liquor (like scotch, gin, or vodka). Never 2. How many drinks containing alcohol did you have on a typical day when you were drinking in the past year? Response not required due to responses to other questions. 3. How often did you have six or more drinks on one occasion in the past year? Response not required due to responses to other questions. COVID-19 Immunization: Refused Moderna Monovalent COVID-19 vaccine Immunization: COVID-19 (MODERNA), MRNA, LNP-S, PF, 50 MCG/0.5 ML (AGES 12+ YEARS) Refusal Reason: PATIENT DECISION Patient refuses all immunization(s) in the COVID-19 group Date Documented: 11/19/23 09:05 Herpes Zoster (Shingles) Vaccine: The patient declines to receive the recommended dose of zoster (shingles) vaccine. Immunization: ZOSTER RECOMBINANT Refusal Reason: PATIENT DECISION Patient refuses all immunization(s) in the ZOSTER group Date Documented: 11/19/23 09:06 Sexual Orientation: The patient thinks of their sexual orientation as: Straight or Heterosexual RHS Screen: RHS Screen Session Format: Face to Face Environmental Check Upon inquiry, the individual reports that the environment is safe to proceed. Informed Consent to Screen and Document The individual consents to proceed with screening. The individual consents to documentation of responses. PRIMARY SCREEN: In the past 12 months, how often did a current or former intimate partner (e.g., boyfriend, girlfriend, , , sexual partner): 1. Scream or curse at you Never 2. Insult or talk down to you Never 3. Threaten you with harm Never 4. Physically hurt you Never 5. Force or pressure you to have sexual contact against your will, or when you were unable to say no Never ?? The HITS tool (items 1-4 above) is [place] copyright protected by Conor Sanchez MD, and the user has full rights to use it throughout the [place] system. PRIMARY SCREEN RESULT: The Primary Screen is NEGATIVE. The individual answered never to all forms of IPV above (i.e., answered never to all 5 items) The individual accepts education and/or resources: Yes - Offered verbal universal education about IPV EDUCATION: The individual indicated readiness to learn. Education offered during this session as noted above. The individual indicated understanding by asking relevant questions and making appropriate comments. No barriers to learning were observed or identified. /bakari/ LUCIA CERON LPN LPN Signed: 11/19/2023 09:07 LUCIA CERON MARY
== END 2024-07-20 12:08 | disposition home or self-care (01) ==
PROVIDERS: PCP Internal Medicine; Visit Provider Internal Medicine
DX: E78.00 Pure hypercholesterolemia, unspecified (principal); J44.9 Chronic obstructive pulmonary disease, unspecified; I71.40 Abdominal aortic aneurysm, without rupture, unspecified; I10 Essential (primary) hypertension; R73.01 Impaired fasting glucose; E55.9 Vitamin D deficiency, unspecified; M51.360 Other intervertebral disc degeneration, lumbar region with discogenic back pain only; M19.91 Primary osteoarthritis, unspecified site; Z85.01 Personal history of malignant neoplasm of esophagus; N40.0 Benign prostatic hyperplasia without lower urinary tract symptoms; F41.9 Anxiety disorder, unspecified

== ENCOUNTER → 2024-07-20 10:20 | Outpatient (BNVA) | payer MEDICARE, OTHER, SELFPAY | PROVIDERS: PCP Internal Medicine; Visit Provider Internal Medicine | DX: E78.00 Pure hypercholesterolemia, unspecified (principal); I10 Essential (primary) hypertension; R73.01 Impaired fasting glucose; J44.9 Chronic obstructive pulmonary disease, unspecified; I71.40 Abdominal aortic aneurysm, without rupture, unspecified; E55.9 Vitamin D deficiency, unspecified; M51.360 Other intervertebral disc degeneration, lumbar region with discogenic back pain only; M19.91 Primary osteoarthritis, unspecified site; N40.0 Benign prostatic hyperplasia without lower urinary tract symptoms; F41.9 Anxiety disorder, unspecified; Z85.01 Personal history of malignant neoplasm of esophagus | CPT/HCPCS: 96127; 99212 ==

== ENCOUNTER 2024-11-09 08:15 | Outpatient (REF) | payer MEDICARE, OTHER, SELFPAY ==
--- OUTSIDE RECORDS SUMMARY | 2024-11-09 08:26 | XMS_ITS | Continuity of Care Document ---
Author Organization [facility] Address [address] [place] [id number]- Care Team Providers Care Shank Carrier Name Role Phone Sergio Ballesteros MD Primary Care Physician [phone] Encounter [facility] [place] [place] ACCT R [id number] Date(s): 10/28/24 - 11/04/24 [facility] [address] [place] [phone]- Encounter Diagnosis COPD, group B, by GOLD 2017 classification(Discharge Diagnosis) - 10/28/24 Attending Physician: Maisha Márquez MD Encounter Type: Office Visit Allergies, Adverse Reactions, Alerts Substance Criticality Severity Reaction Reaction Severity Status Pollen Active Lactose Active Medications Cetirizine = 10 mg, By Mouth, Daily, [...] day, PRN as needed for wheezing, # 1 each, 3 Refills, Maintenance, 10/28/24 3:01:00 PM EDT, Aerosol, [facility], copd j44.9, 2 puffs Inhalation 4 times a day,x90 days,PRN:as needed for wheezing, 176, cm, 10/28/24 14:54:00 EDT, Height Start Date: 10/28/24 Stop Date: 10/23/25 Status: Ordered Quantity: 1.0 Unit: each Repeat number: 4 ProAir HFA 90 mcg/inh inhalation aerosol with adapter 2, puffs, Inhalation, Every 4 hours, PRN, # 1 each, Refills 3, Tot. Refills 3, Maintenance, 07/02/21 12:16:00 PM EST, Aerosol, Route to Pharmacy Electronically, [id number], [facility], don't refill until patient calls, [...] 2 inhalation, Inhalation, Every 24 hours, # 3 each, 3 Refills, Maintenance, 10/28/24 3:01:00 PM EDT,[facility], copd J44.9, 176, cm, 10/28/24 14:54:00 EDT, Height Start Date: 10/28/24 Stop Date: 10/23/25 Status: Ordered Quantity: 3.0 Unit: each Repeat number: 4 tamsulosin 0.4 mg oral capsule 1 capsule [...] List Condition Confirmation Course Effective Dates Status H ealth Status Informant COPD, group B, by GOLD 2017 classification Confirmed Active COPD, mild Confirmed Active Diagnosis Diagnosis Type Effective Dates Health Status Clinical Service Informant COPD, group B, by GOLD 2017 classification Discharge Diagnosis 10/28/24 Vital Signs Most recent to oldest [Reference Range]: 1 Height 176 cm (10/28/24 2:54 PM) Weight 67.6 kg (10/28/24 2:54 PM) Oxygen Saturation [94-100 %] 99 % (10/28/24 2:54 PM) Pulse Rate [55-90 bpm] 83 bpm (10/28/24 2:54 PM) Body Mass Index [18.5-24.99 kg/m2] 21.82 kg/m2 (10/28/24 2:54 PM) Blood Pressure [90-138/55-84 mm Hg] 141/ 64mm Hg *H* (10/28/24 2:54 PM) Mode of Delivery (Oxygen) Room air (10/28/24 2:54 PM) Blood pressure sites Arm, left (10/28/24 2:54 PM) Weight Obtained Via Bed scale (10/28/24 2:54 PM) Social History Social History Type Response Smoking Status Former smoker; Tobac co user in household: No; Type: Cigarettes; Other: Quit smoking 2005; Number of years: 40; Total pack years: 40; Started at age: 16; Stopped at age: 60; entered on: 04/22/16 Sex Sex Representation Male (finding) Note * Daniel Justice: PERFORM Event Display: Patient Education/Instruction Authored Date: [id number] Ambulatory Adult Visit Summary [facility] [address] [place] [address] Name: ALEJA LAZO : 1945?? Visit: 10/28/2024 14:37?? Ambulatory Visit Instructions ?? Your Care Team Primary Care Provider Favian GARDNER, Sergio Mo? This Visit Provider Maisha Márquez MD Your Diagnosis COPD, group B, by GOLD 2017 classification Vitals Signs Pulse Rate: 83 bpm Height: 176 cm Systolic Blood Pressure:??141 mm Hg??High Weight: 67.6 kg Diastolic Blood Pressure: 64 mm Hg Body Mass Index: 21.82 kg/m2 Oxygen Saturation: 99 % Body surface area: 1.82 Medications The list below reflects the information in our records and provided by you today along with any changes made during this visit. Please continue your medications until treatment is completed or stopped by your provider. If this is different from the information you have or there are other questions,please contact the prescribing provider. What How Much When Instructions Changed Albuterol (ProAir HFA 90 mcg/ inh inhalation aerosol) 2 puff(s) Inhalation 4 times a day as needed for as needed for wheezing Duration: 90 Days Pickup at [facility] Changed olodaterol-tiotropium (Stiolto Respimat 60 ACT 2.5 mcg-2.5 mcg/ inh inhalation aerosol) 2 inhalation Inhalation Every 24 hours Duration: 90 Days Pickup at [facility] Unchanged Albuterol (ProAir HFA 90 mcg/ inh inhalation aerosol with adapter) 2 puff(s) Inhalation Every 4 hours as needed for Wheezing/Shortness of Breath Duration: 90 Days Contact prescribing physician if questions or concerns ?? Unchanged Cetirizine 10 Milligram Oral Daily Contact prescribing physician if questions or concerns ?? Unchanged Cetirizine (ZyrTEC 10 mg oral tablet) 1 tab(s) Oral Daily Contact prescribing physician if questions or concerns ?? Unchanged Cholecalciferol (Vitamin D3) 5,000 unit(s) Oral Daily Contact prescribing physician if questions or concerns ?? Unchanged Chondroitin/ Glucosamine/ Methylsulfonylmethane (Glucosamine & Chondroitin with MSM) 1 tab(s) Oral 3 times a day Contact prescribing physician if questions or concerns ?? Unchanged Citalopram (citalopram 10 mg oral tablet) 1 tab(s) Oral Daily Contact prescribing physician if questions or concerns ?? Unchanged Dexamethasone 2 tablets the day of and two th day after chemo and skips one day for omeprazole for nausea Contact prescribing physician if questions or concerns ?? Unchanged Finasteride (finasteride 5 mg oral tablet) 1 tab(s) Oral Daily Contact prescribing physician if questions or concerns ?? Unchanged Hepatitis A Adult Vaccine (Havrix 1440 units/ mL preservative free intramuscular suspension) 1 Milliliter Intramuscular Once Duration: 1 doses/times DIR Contact prescribing physician if questions or concerns ?? Unchanged Losartan (losartan 25 mg oral tablet) 1 tab(s) Oral Daily Contact prescribing physician if questions or concerns ?? Unchanged Melatonin (melatonin 10 mg oral capsule) 1 capsule Oral Daily at Bedtime Contact prescribing physician if questions or concerns ?? Unchanged Miscellaneous Rx (Fiber caps generic) 2 pills daily Contact prescribing physician if questions or concerns ?? Unchanged Multivitamin Oral Daily Contact prescribing physician if questions or concerns ?? Unchanged Multivitamin With Minerals (Icaps AREDS) Oral Daily Contact prescribing physician if questions or concerns ?? Unchanged Omeprazole 20 Milligram Oral Daily Contact prescribing physician if questions or concerns ?? Unchanged Sildenafil (Viagra 100 mg oral tablet) 1 tab(s) Oral Daily PRN Contact prescribing physician if questions or concerns ?? Unchanged Simvastatin 20 Milligram Oral Daily at Bedtime Contact prescribing physician if questions or concerns ?? Unchanged Tamsulosin (tamsulosin 0.4 mg oral capsule) 1 capsule Oral Daily Contact prescribing physician if questions or concerns ?? Pharmacy Information [facility]: [address] [place], [place] [id number] [phone] ?? What How Much When Comments Stop Taking Fluticasone (Arnuity Ellipta 100 mcg inhalation powder) 100 Microgram Inhalation Every 24 hours Duration: 30 Days Stop Taking Fluticasone-Salmeterol (Advair HFA 115 mcg / 21 mcg) 2 puff(s) Inhalation Twice a day Medications and Immunizations Administered Medications Given During Visit No medications given during this visit.?? Allergies (NKA means No Known Allergies) Lactose Pollen Common Emergency Awareness Tips IS IT A STROKE? Act FAST and Check for these signs: FACE Does the face look uneven? ARM Does one arm drift down? SPEECH Does their speech sound strange? TIME Call at any sign of stroke ?? Heart Attack Signs Chest discomfort: Most heart attacks involve discomfort in the center of the chest and lasts more than a few minutes, or goes away and comes back. It can feel like uncomfortable pressure, squeezing, fullness or pain. Discomfort in upper body: Symptoms can include pain or discomfort in one or both arms, back, neck, jaw or stomach. Shortness of breath: With or without discomfort. Other signs: Breaking out in a cold sweat, nausea, or lightheaded. Remember, MINUTES DO MATTER. If you experience any of these heart attack warning signs, call to get immediate medical attention! ?? Smoking can increase your chances of developing chronic health problems and can cause harmful effects to other family members in your house. If you smoke, you are strongly encouraged to quit. Please call [facility] at [phone] or 7-400-447omelett.es ([phone]) or log in to [email or web address] for referrals to smoking cessation programs. ?? The National Suicide Prevention Hotline is available 02/03 if you or someone you know needs to find a reason to keep living. By calling 1-854-775-iTherX (7877) you'll be connected to a skilled, trained counselor at a crisis center in your area. [facility] gDine Portal You can view and manage your care through the patient portal or by using a health care angela of your choosing. [employer] is a website that allows you to securely view your medical information including your hospital discharge summary, office visit summaries, medications and follow-up visits. You can also request appointments, renew medications, and request access to your medical information using a health care angela of your choosing, or just ask a question. You can enroll at [email or web address] or register during your next office visit. [facility], in keeping with [facility] guidance, no longer requires face masks for staff, patientsor visitors in most situations. Similiar to time spent indoors at other locations, there is the chance that you were exposed to repiratory viruses during your time with us (such as flu or COVID-19). If you develop symptoms concerning for a viral respiratory infection, please seek testing (and treatment if indicated) from your medical provider or home test kit. ?? Disclaimer: The information provided is of a general nature and is intended to be used in conjunction with the recommendations and advice of your health care practitioner. Every effort has been made to ensure that the information provided is accurate and complete at the time it is provided to you however, as your needs change, or, as new information becomes available, different or additional instructions may be required. ?? If you have questions, please consult with your primary care provider or pharmacist, as appropriate. This information is not intended to serve as substitution for assessment and evaluation by a qualified health care provider. If you do not have a primary care provider, you may find a [facility] provider by calling [facility]Dine [facility] at [phone]. Patient Care team information Care Team Personnel Name: Sergio Ballesteros MD Position: Reference Physician Member Role: PCP Address: [address] [place] [address] Telecom: Care Team Related Persons Name: REYNALDO LAZO Insurance Providers Guarantor name: ALEJA LAZO Health Plan Information #: 2 Payer: [employer] [facility] MCR A ONLY Member Number: [id number] Policy Number: NA Group Number: NA Health Plan Information #: 1 Payer: MEDICARE PART B OUTPT Member Number: [id number] Policy Number: NA Group Number: NA
--- OUTSIDE RECORDS SUMMARY | 2024-11-09 08:26 | XMS_ITS | Continuity of Care Document ---
Author Name [facility] Organization [facility] Care Team Providers Care Wireline Operator Name Role Phone [facility] Unavailable Unavailable Problems Combined list of problems from Department of Defense and Veterans Affairs facilities. It does not include entries that were removed or entered in error. Problem Status Onset Date Problem Type Date of Resolution Comments Source Abdominal aortic aneurysm Active Condition Oct 29, 2020 Entered By: VIPUL SLADE Comment: repair 2019 [place] Benign prostatic hypertrophy Active Condition [facility] Bunion Active Condition Oct 10 16 Entered By: MAYI CRUZ Comment: s/p R surgery 12/21 [place] Chronic obstructive lung disease Active Condition [facility] Closed fracture of clavicle Active Condition Oct 11, 2015 Entered By: MAYI CURZ Comment: x3 s/p bone graft from hip to R clavicle 1965 [place] Environmental allergy (SNOMED CT 901340909) Active Condition [facility] Gastroesophageal reflux disease without esophagitis Active Condition [facility] Hearing loss Active [facility] History of malignant neoplasm of oesophagus Active Condition Nov 13, 2021 Entered By: VIPUL SLADE Comment: 10/2016 - s/p [facility] Esophagectomy [facility] HTN - Hypertension (SCT 74411448) Active Condition [facility] Hyperlipidemia (SCT 99334468) Active Condition [facility] Insomnia Active Condition [facility] NON [facility] PCP Active Condition Nov 07 Entered By: VIPUL SLADE Comment: nonVA PCP: Dr Sergio Palmer 2020 Entered By: VIPUL SLADE Comment: Oncology: Dr. Heard 2020 Entered By: VIPUL SLADE Comment: Vascular: Dr. Coelho 2020 Entered By: VIPUL SLADE Comment: Real Estate Marketing Coordinator: Dr Gil 2020 Entered By: VIPUL SLADE Comment: Supervisor Sewing Department: Dr Keller [facility] Osteoarthritis Active Condition [place] [facility] Prediabetes Active Condition [facility] [place] Primary erectile dysfunction Active Condition [facility] Tinnitus Active Condition [facility] Vitamin D deficiency [facility] Diagnosis: ICD-10-CM I10 Essential (primary) hypertension Active Diagnosis [facility] Diagnosis: ICD-10-CM Z46.0 Encounter for fit/adjst of spectacles and contact lenses Active Diagnosis [facility] Diagnosis: ICD-10-CM H25.13 Age-related nuclear cataract, bilateral Active Diagnosis [facility] Medications Combined list of outpatient medications from [...] RESPIR ATORY (INHAL ATION) ACTIVE MEGHA CRUZ spring IELD CETIRIZINE HCL 10MG TAB TAKE ONE TABLET BY MOUTH DAILY ORAL ACTIVE MEGHA CRUZ spring IELD CITALOPRAM HYDROBROMID E 20MG TAB TAKE ONE-HALF TABLET BY MOUTH DAILY ORAL ACTIVE MEGHA CRUZ spring IELD FINASTERIDE 5MG TAB TAKE ONE TABLET BY MOUTH DAILY ORAL ACTIVE MEGHA CRUZ spring IELD LOSARTAN 25MG TAB TAKE ONE TABLET BY MOUTH DAILY ORAL ACTIVE MEGHA CRUZ spring IELD MULTIVITAMI NS W/MINERALS TAB TAKE ONE TABLET BY MOUTH DAILY ORAL ACTIVE MEGHA CRUZ spring IELD OLODATEROL 2.5MCG/TIOT ROPIUM 2.5MCG/ACTU AT [facility],ORAL,6 0D,4GM INHALE 2 PUFFS (1 DOSE) BY MOUTH ONCE DAILY RESPIR ATORY (INHAL ATION) ACTIVE FERMIN SLADE SA 2020 [facility] OMEPRAZOLE 20MG CAP,EC TAKE 2 CAPSULES BY MOUTH EVERY MORNING 30 MINUTES BEFORE BREAKFAS T ORAL ACTIVE YANYFERMIN SA 2020 [facility] SIMVASTATIN 40MG TAB TAKE ONE-HALF TABLET BY MOUTH DAILY ORAL ACTIVE MEGHA CRUZ KENNY 2015 IELD TAMSULOSIN HCL 0.4MG CAP TAKE 1 CAPSULE BY MOUTH AT BEDTIME ORAL ACTIVE MEGHA CRUZ KENNY 2015 IELD VITAMIN D3 (CHOLECALCI FEROL) TAB TAKE 5000IU BY MOUTH ONCE DAILY ORAL ACTIVE FERMIN SLADE SA 2020 [facility] Allergies, Adverse Reactions, Alerts Combined list of allergies from Department of Defense and Veterans Affairs facilities. It does not include entries that were removed or entered in error. Substance Category Reaction Severity Reaction type Status Date Reported Comments Source LACTOSE Propensity to adverse reactions to substance (finding) active [facility] Immunizations Combined list of available immunizations from the Department of Defense and Veterans Affairs facilities. Immunization Series Date Given Administered By Site Reaction Lot Number CVX Code Drug Blueprinter Status Comments Source INFLUENZA, UNSPECIFIED FORMULATION 2020 88 complet ed [facility] COVID-19 (MODERNA), MRNA, LNP-S, PF, 100 MCG/0.5 ML DOSE 2 2020 207 complet ed [facility] COVID-19 (MODERNA), MRNA, LNP-S, PF, 100 MCG/0.5 ML DOSE 1 2020 207 complet ed [facility] INFLUENZA, SEASONAL, INJECTABLE 2017 141 complet ed [facility] ZOSTER RECOMBINANT 1 2017 187 complet ed yes [facility] INFLUENZA, SEASONAL, INJECTABLE 2016 141 complet ed pharmacy [facility] FLU,3 YRS (HISTORICAL) 2015 88 complet ed [facility] TDAP 2015 115 complet ed [facility] FLU,3 YRS (HISTORICAL) 2014 88 complet ed Outside provider [facility] HEP B, ADULT 2013 43 complet ed 2nd: 05/15/14, 3rd: 10/16/14 record from [facility] ZOSTER (HISTORICAL) 1997 121 complet ed [facility] Vital Signs Combined list of inpatient and outpatient Vital Signs from Department of Defense and Veterans Affairs, ranging from 12 months to all on record, depending upon the facility. Vital Sign Value Date Comments Source SYSTOLIC BLOOD PRESSURE 147 11/19/19 24 09:00:35 [facility] DIASTOLIC BLOOD PRESSURE 77 024 09:00:35 [facility] PULSE OXIMETRY 95 11/19/2023 09:00:35 [facility] WEIGHT 152 11/19/2023 09:00:35 [facility] BMI 22 kg/m2 11/19/2023 09:00:35 [facility] HEIGHT 69 11/19/2023 09:00:35 [facility] TEMPERATURE 97.4 11/19/2023 09:00:35 [facility] PULSE 78 11/19/2023 09:00:35 [facility] RESPIRATION 20 11/19/2023 09:00:35 [facility] Encounters Combined list of: 1) Encounters from Department of Veterans Affairs facilities going backup to the last 18 months, not all VA inpatient encounters are included; 2) Encounters from the Department of Defense facilities going backup to 280 months. Location Location Details Encounter Type Encounter Number Reason For Visit Attending Provider ADM Date DC Date Status Disposition Source [facility] Outpatient Encounter [id number] 07/20 [facility] EYE EXAM&TX ESTAB PT 1/>VST [id number] Diagnos is: ICD-10- CM H25.13 Age-rel ated nuclear catarac t, bilater al CAMRON FELIX Lisette 07/21 [facility] FIT SPECTACLES BIFOCAL [id number] Diagnos is: ICD-10- CM Z46.0 Encount er for fit/adj st of spectac les and contact lenses CAMRON FELIX Lisette 07/21 [facility] RPR&REFITG SPECT XCP APHAKIA [id number] Diagnos is: ICD-10- CM Z46.0 Encount er for fit/adj st of spectac les and contact lenses SHANIQUA DAO 08/12 [facility] OFF[facility] O/P EST LOW 20 MIN [id number] Diagnos is: ICD-10- CM I10 Essenti al (primar y) hyperte nsion RONA SLADE 11/18 [place] [facility] Outpatient Encounter [id number] RONA SLADE 11/18 [facility] Social History Combined list of available smoking, tobacco, and other social history from Department of Defense and Veterans Affairs facilities. Social History Type Response Date Comment Source Tobacco smoking status [facility] VA-TOBACCO FORMER USER 11/19/2023 [facility] History of tobacco use VA-TOBACCO QUIT 15 YRS OR MORE 11/19/2023 [facility] History of tobacco use [facility]ACCO FORMER USER 11/13/2022 [place] History of tobacco use [place] 11/13/2021 [place] History of tobacco use [facility]ACCO FORMER USER 11/06/2020 [facility] History [facility] tobacco use [facility]-TOBACCO FORMER USER 12/10/2018 [place] History of tobacco use QUIT TOBACCO USE > 7 YEARS AGO 12/08/2017 quit 27 yrs ago [facility] History of tobacco use QUIT TOBACCO USE > 7 YEARS AGO 12/08/2016 [place] History of tobacco use QUIT TOBACCO USE > 7 YEARS AGO 10/11/2015 [place] Plan of Care List of future care activities from Department of Veterans Affairs facilities. Additional future care activities may be listed in the Assessment and Plan section. Date/Time Care Activity Care Activity Detail Facili ty 11/15/2024 AMBULATORY - MEDICINE [facility]
--- OUTSIDE RECORDS SUMMARY | 2024-11-09 08:26 | XMS_ITS | Encounter Summary ---
Author Name [facility] Organization [facility] [place] Address [address] [place] [address] Care Team Providers [employer] Supervisor Name Role Phone YANYVIPUL Primary Care Provider [...] PART A Sep 10, 2008 PART A [id number] CAITLYN LAZO ERT PATIENT MEDICARE (WNR) MEDICARE (M) PART B Sep 10, 2008 PART B [id number] [phone] CAITLYN LAZO ERT PATIENT MEDICARE (WNR) MEDICARE (M) PART A Sep 10, 2008 PART A [id number] CAITLYN LAZO ERT PATIENT MEDICARE (WNR) MEDICARE (M) PART B Sep 10, 2008 PART B [id number] [phone] CAITLYN LAZO ERT PATIENT FOR LIFE TFL* Nov 25, 2012 [id number] CAITLYN LAZO ERT PATIENT Selected Encounter This section includes the information on record at [place] for the Encounter. Date/Time Encounter Type Encounter Description Reason Provider Source Nov 19, 2023 09:00 AM OFFICE O/P EST LOW 20 MIN PRIMARY CARE/MEDICINE ICD-10-CM I10 Essential (primary) hypertension VIPUL SLADE Chris Encounter Template Text not used by [place] Assessments - Encounter Diagnoses This section includes the primary and secondary diagnoses documented for the Encounter. Date/Time Primary/Secondary Diagnosis Diagnosis Name Provider Source Nov 19, 2023 09:22 AM PRIMARY Essential (primary) hypertension VIPUL SLADE MARY Nov 19, 2023 09:22 AM SECONDARY Gastro-esophageal reflux disease without esophagitis VIPUL SLADE MARY Nov 19, 2023 09:22 AM SECONDARY Hyperlipidemia, unspecified VIPUL SLADE MARY Social History: Smoking Status (Most current) and Tobacco Use (All prior to encounter date) This section includes the most current, and the historical, smoking and tobacco- related health factors from the [place] facility where the Encounter took place. Current Smoking Status This section includes the most current smoking, or tobacco-related health factor, from the [place] facility where the Encounter took place. Date/Time Current Smoking Status Comment Facil ity Nov 13, 2022 09:00 AM VA-TOBACCO FORMER USER [facility] Tobacco Use History This section includes a history of the smoking, or tobacco-related health factors, that were collected on or before the date of the Encounter. The data comes from the [place] facility where the Encounter took place. Date/Time Smoking Status/Tobacco Use Comment F acility Nov 13, 2022 09:00 AM VA-TOBACCO QUIT 15 YRS OR MORE [facility] Nov 13, 2021 09:30 AM VA-TOBACCO FORMER USER [facility] Nov 13, 2021 09:30 AM VA-TOBACCO QUIT 15 YRS OR MORE [facility] December 10, 2018 11:59 AM VA-TOBACCO FORMER USER [facility] December 10, 2018 11:59 AM VA-TOBACCO QUIT 15 YRS OR MORE [facility] December 08, 2017 02:57 PM QUIT TOBACCO USE > 7 YEARS AGO quit 27 yrs ago [facility] December 08, 2016 03:20 PM QUIT TOBACCO USE > 7 YEARS AGO [facility] Oct 11, 2015 09:53 AM QUIT TOBACCO USE > 7 YEARS AGO [facility] Encounter Notes: All associated encounter notes This [...] ALEJA LAZO, is a 78 yo MALE [place], who [facility] for his annual visit. Vet maintains a nonVA PCP: Dr Sergio Ballesteros. He utilizes audiology and optometry services at the [place]. NonVA Specialists: Vascular: Dr Carr Oncologist: Dr Delarosa Last Turner: Dr Márquez Grain Packer: Dr Keller Active problems - Computerized Problem List is the source for the followin. Benign prostatic hypertrophy 2. Vitamin D deficiency 3. Gastroesophageal reflux disease without esophagitis 4. Primary erectile dysfunction 5. Insomnia 6. Environmental allergy (SNOMED CT 830864673) 7. HTN - Hypertension (SCT 07426814) 8. Hyperlipidemia (SCT 08777398) 9. Prediabetes 10. NON VA PCP 11. [...] ========= LACTOSE HISTORY: PERIOD OF SERVICE - [facility] FROM Aug TO Aug COMBAT SERVICE INDICATED: [...] Remote Allergy/ADR Data available for this patient [place] [facility] LACTOSE Med Recon [...] the patient into personal health records (i.e. EDUS) are NOT included in this list. Non-VA medications documented outside this [place], remote inpatient orders (regardless of status) and [...]
--- OUTSIDE RECORDS SUMMARY | 2024-11-09 08:26 | XMS_ITS | Data Portability ---
Author Organization [place] - [facility], Allergy Address [address] [address] Assessment No assessment recorded. Plan of Treatment Reminders Order Date Submit Date Provider Last Modified By Organization Details Last Modified Time Details Appointments Establish ed 15 2024 09:00A M GRANT HURST PA-C Not available Not available Not available Lab None recorded. Referral None recorded. Procedures None recorded. Surgeries None recorded. Imaging None recorded. Medication Orders None recorded. Patient TargetsNo targets recorded. Patient InstructionsNo instructions recorded. Reason for Referral None Reported. Results Created Date Observation Date Name Description Value Unit Range Abnormal Flag Note LastModifiedBy Organization Detail LastModifiedTime 02/29/20 24 audio gram No observ ation record ed. [facility] Not Available 2023 15:58:12 Result Notes None recorded. Problems Name Problem SNOMED Code Status Onset Date Resolution Date Notes Provider Name and Address Organization Details Recorded Time Impacted cerumen of bilateral ears 25490525721 98925 Active 2016 Impacted cerumen, bilateral ; Note: Date Diagnosed : 01/09/2017 2:26 PM (H61.23) Not Available [facility] 4 02:14:17 Dysphonia 10126415 Active 2016 Other voice and resonance disorders ; Note: Date Diagnosed : 02/27/2017 5:18 PM (R49.8) Not Available [facility] 4 02:15:01 Finding of resonance of voice 517066423 Active 2016 Other voice and resonance disorders ; Note: Date Diagnosed : 02/27/2017 5:18 PM (R49.8) Not Available [facility] 4 02:15:01 Sensorine ural hearing loss of bilateral ears 339776833 Active 2016 Sensorine ural hearing loss, bilateral ; Note: Date Diagnosed : 01/09/2017 2:31 PM (H90.3) Not Available [facility] 4 02:14:22 History of malignant neoplasm of esophagus 050792360 Active 2016 Personal history of malignant neoplasm: Esophagus ; Note: Date Diagnosed : 01/09/2017 2:31 PM (V10.03) Nava hunter history of malignant neoplasm of esophagus ; Note: Date Diagnosed : 01/09/2017 2:31 PM (Z85.01) Not Available [facility] 4 02:12:57 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 Active 2016 Paralysis of vocal cords and larynx, unilatera l; Location: left Note : Date Diagnosed : 01/09/2017 4:31 PM (J38.01) Not Available [facility] 4 02:13:52 Tinnitus of left ear 78597855599 06 Active 2023 JENNIFER SANFORD MD [address] [facility],[place] [address], [facility] [place], [address] , [facility] - [facility] 4 15:08:49 Deviated nasal septum 283916459 Active 2023 JENNIFER SANFORD MD [address] [facility],[place] [address], [facility] [place] [place], [address] , [place] - [facility] 4 15:09:16 Problem Notes None recorded. Procedures Surgical History Date Name Laterality Status Provider Name and Address Organization Details Recorded Time 4 Comp Audio with Tymps (72432 & 20586) completed MCKENZIE HERNANDEZ [address] [facility],[place] [address], [place], [address], [facility] - [facility] [place] 02/26/2024 15:15:42 Cerumen removal with microscope completed JENNIFER COPELAND MD [address] [facility],[address], [address], [facility] - [facility] 02/26/2024 15:08:35 Imaging Results Imaging Date Name Status LastModified by Organiz ation Details LastModified Time 02/29/2024 audiogram completed [facility] Information no t available 02/29/2024 15:58:12 Procedure Notes None recorded. Medical Equipment None Reported. Medications Name Sig Start Date Stop Date Status Note LastModified by Organization Details LastModified Time amoxicill in 500 mg capsule TAKE 1 CAPSULE BY MOUTH TWICE DAILY FOR 10 DAYS 02/25 completed Not Available Not Available Not Available citalopra m 10 mg tablet Take 1 tablet every day by oral route. active Not Available Not Available No t Available prednison e 20 mg tablet TAKE 1 TABLET BY MOUTH DAILY FOR 3 DAYS active Not Available Not Available No t Available omeprazol e 40 mg capsule,d elayed release active Not Available Not Available Not Available doxycycli ne monohydra te 100 mg tablet TAKE 1 TABLET BY MOUTH TWICE DAILY FOR 7 DAYS 02/25 completed Not Available Not Available Not Available tamsulosi n 0.4 mg capsule active Not Available Not Available Not Available benzonata te 100 mg capsule TAKE 2 CAPSULES BY MOUTH THREE TIMES DAILY NEEDED FOR COUGH 02/25 completed Not Available Not Available Not Available simvastat in 20 mg tablet active Not Available Not Available Not Available losartan 25 mg tablet active Not Available Not Available Not Available albuterol sulfate HFA 90 mcg/actua tion aerosol inhaler INHALE 2 PUFFS BY MOUTH EVERY 6 HOURS NEEDED FOR SHORTNES S OF BREATH OR WHEEZING active Not Available Not Available No t Available finasteri de 5 mg tablet active Not Available Not Available Not Available Chest Congestio n Relief 400 mg tablet TAKE 1 TABLET BY MOUTH EVERY 4 HOURS active Not Available Not Available No t Available losartan active Not Available Not Avai lable Not Available Advair HFA 115 mcg-21 mcg/actua tion aerosol inhaler 2013 active Medicati on ID: [id number] D uration Value: 90 Brand Name: Advair HFA Send Method: E-Prescr ibed Sub s Allowed: subs OK Medic ationGen ericName : Advair HFA Not Available Not Available Not Available Stiolto Respimat 2.5 mcg-2.5 mcg/actua tion solution for inhalatio n active Not Available Not Available Not Available Vitals Date Recorded Body height Body mass index (BMI) Body weight Provider Name and Address Organization Details Last Updated DateTime 02/26/2024 175.26 cm 22.9 kg/m2 27333.82 g Jerome Morales [place] - [facility] 02/26/2024 14:45:32 Social History None recorded. Functional Status None recorded. Mental Status None recorded. Family History Nothing Reported. Medical History Condition Response Cancer Y Arthritis Y Hypertension Y COPD Y Kidney Disease Y Past Encounters Encounter ID Performer Location Encounter Start Date Encounter Closed Date Diagnosis/Indication Diagnosis SNOMED-CT Code Diagnosis ICD10 Code Diagnosis Note [id number] JENNIFER SANFORD MD [facility] [address] [address] 02/26/2024 14:28:14 02/26/2024 15:42:03 Impacted cerumen of bilateral ears 9540371190 789640 H61.23 Suggested 3 drops distilled vinegar in each ear twice weekly to prevent the buildup of cerumen Tinnitus of left ear 884 1551795 106 H93.12 Audiogram shows symmetric SNHL. Tinnitus present for many years after acoustic trauma. Hold off on any imaging. Deviated nasal septum 12 6934804 J34.2 asymptomat ic. No need for interventi on [id number] MCKENZIE HERNANDEZ [facility] [address] [address] 02/26/2024 15:11:22 02/26/2024 17:59:42 Sensorineural hearing loss of bilateral ears 583242507 H90.3 Tinnitus of left ear 343 2388748 106 H93.12 Right Ear:Modera te to severe SNHL with excellent speech discrimina tion.Type A tympanogra m.Left Ear:Modera te to severe SNHL with excellent speech discrimina tion.Type A tympanogra m. Health Concerns Section Related Observation LastModified by Organization Detai ls LastModified Time None Recorded Concern Status LastModified by Organization Details LastModified Time None Recorded Advance Directives Directive None Recorded Payers Encounter Date Sequence Insurance Name Policy Number Policy [place] Covered Member ID [place] Member ID Guarantor Name 02/26/2024 1 MEDICARE B-PR: [employer] David Cosby [id number] David Cosby 02/26/2024 1 MEDICARE B-PR: NATIONAL [employer] David Cosby [id number] David Cosby Notes Date Note Type Note Provider Name and Address Organization Details Recorded Time 02/26/2024 text/html Last seen 2016 with dysphonia following esophageal resection. Cancer free for 6 yrs. Voice normal. Chronic left HL and tinnitus due to noise exposure. Has Hearing aids. Followed at MD JENNIFER COPELAND MD [address] [place] [address], [place], [address], [place] - [facility] 02/26/2024 16:24:49
--- OUTSIDE RECORDS SUMMARY | 2024-11-09 08:26 | XMS_ITS | Clinical Summary ---
Author Organization [facility] Address [address] [place] [address] Phone Care Team Providers Care Manager Print Name Role Phone Sergio Ballesteros MD Primary Care Provider [phone] Allergies No known active allergies Medications multivitamin (Multiple Vitamins) tablet Take by mouth. Active OMEPRAZOLE ORAL Take 20 mg by mouth daily. Active ZINC ORAL Take by mouth. Active cetirizine (ZyrTEC) 10 mg tablet Take 10 mg by mouth daily. Active cholecalciferol (VITAMIN D-3) 50 mcg (2,000 unit) tablet Take by mouth. Active finasteride (PROSCAR) 5 mg tablet Take 5 mg by mouth daily. Active fluticasone propion-salmeter oL (ADVAIR DISKUS) 100-50 mcg/dose diskus inhaler Inhale into the lungs. Active losartan (COZAAR) 25 mg tablet Take 25 mg by mouth daily. Active melatonin 10 mg capsule Take by mouth. Active simvastatin (ZOCOR) 20 mg tablet Take 20 mg by mouth at bedtime. Active tamsulosin (FLOMAX) 0.4 mg 24 hr capsule Take 0.4 mg by mouth daily. Take 30 mins after same meal every day. Active tiotropium-oloda teroL (Stiolto Respimat) 2.5-2.5 mcg/actuation mist inhaler Inhale into the lungs. 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 CT scan also continues to show a similar sized abdominal aortic aneurysm sac measuring up to 6.7cm with endoleak again noted. He did have an abdominal CT scan on 09/03/22 and was seen in the Vascular office in October. I will contact Vascular to inform them that there is another CT scan they can review. It appears that the patient has a 6 month follow up with them. Surgical History Surgery Date Site/Laterality Comments OTHER SURGICAL HISTORY 05/26/2019 PROCEDURE: ---- OTHER ----; COMMENT: Endovascular Aortic repair OTHER SURGICAL HISTORY 02/03/2022 PROCEDURE: ---- OTHER ----; COMMENT: Aorta Aneurysm Medical History Medical History Date Comments Essential (primary) hypertension DX:Essential (primary) hypertension Hypercholesteremia DX:Hyperchole steremia Anxiety disorder DX:Anxiety diso rder Esophageal cancer ([facility]/HCC) DX:E sophageal cancer ([facility]) Social History Tobacco Use Types Packs/Day Years Used Date Smoking Tobacco: Former Cigarettes S tarted: 01/22/1992 Smokeless Tobacco: Former Alcohol Use Standard Drinks/Week Comments Yes 0 (1 standard drink = 0.6 oz pur e alcohol) Sex and Gender Information Value Date Recorded Sex Assigned at Male 06/08/2024 10:51 AM EDT Legal Sex Male 8:47 PM EST Gender Identity Male 06/08/2024 10:51 AM EDT Sexual Orientation Straight 06/08/2024 10 :51 AM EDT Obstetrics History Last Filed Vital Signs Vital Sign Reading Time Taken Comments Blood Pressure 120/73 04/18/2024 11:05 AM EDT L Arm Pulse 96 04/18/2024 11:05 AM EDT Temperature - - Respiratory Rate - - Oxygen Saturation - - Inhaled Oxygen Concentration - - Weight 67.6 kg (149 lb) 04/18/2024 11:05 AM EDT Height 175.3 cm (5' 9 ) 04/18/2024 11:05 AM EDT Body Mass Index 22 04/18/2024 11:05 AM EDT Plan of Treatment Upcoming Encounters Date Type Department Care Team (Late st Contact Info) Description 11/10/2024 5:15 PM EDT Appointment [facility] Scan [address] [place] [address] 11/10/2024 5:30 PM EDT Appointment [facility] Scan [address] [place] [phone] 11/16/2024 1:45 PM EDT Office Visit Thoracic Surgery - [place] [address] [facility] [address] [place] [address] Cordell Taylor PA 299 [facility] [address] [place] [address] 12/19/2024 8:30 AM EDT Office Visit Vascular Surgery - [place] [address] [facility] [address] [place] [address] Cedric Durham MD 300 [facility] [address] [place] [address] Health Maintenance Due Date Last Done Comments COVID-19 Vaccine (#1) 10/08/1950 Pneumococcal Vaccine: 50+ Years (1 of 1 - PCV) 10/08/1993 Zoster Vaccines (1 of 2) 10/08/1993 RSV Immunization Adult Patients (1 - 1-dose 75+ series) 10/08/2018 Cholesterol Screening (Lipid Panel) 07/12/2022 Depression Screening 07/12/2022 Falls Risk Assessment 07/12/2022 Medicare Annual Wellness Visit 07/12/2022 Social Influencers of Health Screening 07/12/2022 Influenza Vaccine (Season Ended) 2025 05/13/2020, 05/07/2018 DTaP,Tdap,and Td Vaccines (2 - Td or Tdap) 05/25/2032 05/25/2022 HIB Vaccines Aged Out No longer eligi ble based on patient's age to complete this topic HPV Vaccines Aged Out No longer eligi ble based on patient's age to complete this topic Hepatitis A Vaccines Aged Out No long er eligible based on patient's age to complete this topic Hepatitis B Vaccines Aged Out No long er eligible based on patient's age to complete this topic IPV Vaccines Aged Out No longer eligi ble based on patient's age to complete this topic MMR Vaccines Aged Out No longer eligi ble based on patient's age to complete this topic Meningococcal ACWY Vaccine Aged Out N o longer eligible based on patient's age to complete this topic Meningococcal B Vacine Aged Out No lo nger eligible based on patient's age to complete this topic RSV Immunization Patients Under 20 months Aged Out No longer eligible b ased on patient's age to complete this topic Varicella Vaccines Aged Out No longer eligible based on patient's age to complete this topic Insurance MEDICARE Care Teams Manager Print Relationship Specialty Start Date End Date Sergio Ballesteros MD [address] [place] [address] PCP - General Internal Medicine 10/15/16
[2024-11-09 10:18] LABS: MANUAL DIFF FLAG NO
[2024-11-09 10:22] LABS: Basophils Absolute Auto 0.1 X10*3/uL (0.0-0.2); Basophils Percent Auto 1.6 % (0-2); Eosinophils Absolute Auto 0.3 X10*3/uL (0.0-0.4); Eosinophils Percent Auto 3.6 % (0-4); Hematocrit 43.6 % (42.0-52.0); Hemoglobin 14.1 g/dl (14.0-18.0); Imm Gran Abs Auto 0.03 X10*3/uL (0.00-0.03); Imm Gran Pct Auto 0.4 % (0.0-0.4); Lymphocytes Absolute Auto 1.2 X10*3/uL (1.2-4.9); Lymphocytes Percent Auto 17.1 % (20-40); Mean Corpuscular HGB Conc 32.3 g/dl (31.0-36.0); Mean Corpuscular Hemoglobin 29.3 pg (27.0-33.0); Mean Corpuscular Volume 90.5 fL (80.0-98.0); Mean Platelet Volume 9.6 fL (9.4-12.4); Monocytes Absolute Auto 0.9 X10*3/uL (0.1-1.2); Monocytes Percent Auto 12.2 % (2-11); Neutrophils Absolute Auto 4.5 x10*3/uL (2.0-8.3); Neutrophils Percent Auto 65.1 % (45-73); Platelet Count 200 X10*3/uL (160-400); Red Blood Count 4.82 X10*6/uL (4.60-5.80); Red Cell Distribution Width 15.5 % (11.0-16.0)
[2024-11-09 10:26] LABS: Appearance Urine Clear; Color Urine Yellow; Glucose Urine UA Negative (Negative); Leukocyte Esterase Urine Negative (Negative); Nitrite Urine Negative (Negative); Urine Blood Negative (Negative); Urine Ketones Negative (Negative); Urine Protein Negative (Neg-Trace)
[2024-11-09 10:40] LABS: Estimated Average Glucose 117 mg/dL; Hemoglobin A1C 148.4286 umol/L; Hemoglobin A1c % 5.7 % (<6.0); Total Hemoglobin (HGBA1C) 3808.9935 umol/L
[2024-11-09 11:21] LABS: Alanine Aminotransferase 20 U/L (0-40); Albumin Level 3.8 g/dL (3.5-5.0); Alkaline Phosphatase 56 U/L (39-117); Anion Gap 13 (12-20); Aspartate Amino Transferase 26 U/L (5-37); Bilirubin Total 0.6 mg/dL (0.0-1.0); Blood Urea Nitrogen 12 mg/dL (9-16); Calcium 9.3 mg/dL (8.4-10.2); Carbon Dioxide 27 mmol/L (22-29); Chloride 106 mmol/L (96-108); Cholesterol 128 mg/dL (<200); Estimated Glomerular Filt Rate > 60; Glucose Fasting 91 mg/dL (60-99); HDL Cholesterol 38 mg/dL (>40); LDL Cholesterol Calculated 73 mg/dL (<100); Sodium 141 mmol/L (135-145); Total Protein 6.3 g/dL (6.5-8.0); Triglycerides 85 mg/dL (<150)
[2024-11-09 11:45] LABS: TSH reflex Free T4 1.36 uIU/mL (0.32-4.0)
== END 2024-11-09 08:16 | disposition home or self-care (01) ==
LOC: HO.HMGCLDS 08:15
PROVIDERS: PCP Internal Medicine; Visit Provider Internal Medicine
DX: R73.01 Impaired fasting glucose (principal); E78.00 Pure hypercholesterolemia, unspecified; D64.9 Anemia, unspecified; R30.0 Dysuria
CPT/HCPCS: 36415; 80053; 80061; 81003; 83036; 84443; 85025

== ENCOUNTER 2024-11-18 09:45 | Outpatient (AMB) | payer MEDICARE, OTHER, SELFPAY ==
--- NOTE | 2024-11-18 09:59 | MHC.PC.OV ---
Vital Signs 11/18/24 10:11 Height 5 ft 9 in Weight 145 lb 6 oz BMI 21.5 BP 122/70 Blood Pressure Location Lt brachial Position Sitting Pulse 85 Pulse Source Pulse Oximeter Temp 97.1 F Temp Source Temporal Artery Scan Pulse Oximetry (%) 96 Intake Visit Reasons: 4 month f/u Electrician Maintenance Required: No Accompanied by: Self / Same As Patient Allergies lactose [LACTOSE] Allergy (Unknown, Verified 11/18/24 10:43) INTOLERANT Medication List - Last Reconciled 11/18/24 by Sergio Ballesteros MD albuterol sulfate 90 mcg/actuation (ProAir HFA) 2 inhalations inhalation Q6H PRN cetirizine (Zyrtec) 10 mg PO DAILY cholecalciferol (vitamin D3) (Vitamin D3) 50 mcg PO DAILY citalopram 10 mg PO DAILY finasteride 1 tab PO DAILY losartan 25 mg PO DAILY melatonin 10 mg PO BEDTIME PRN multivitamin 1 tab PO DAILY omeprazole 40 mg PO DAILY simvastatin 20 mg PO BEDTIME tamsulosin 1 cap PO DAILY tiotropium-olodaterol 2.5-2.5 mcg/actuation (Stiolto Respimat) 2 puffs inhalation DAILY Tobacco use date assessed: 11/18/24 Fall risk assessment: No Falls in past year Last assessed Fall Risk: 11/18/24 Dental Screening Dental Screen Date: 11/18/24 Did you have a dental visit in the last 12 months?: Yes Did you have a dental problem in the last 6 months where you did not have access to dental care?: No Was dental information given to patient?: Patient has dentist HPI 4 month f/u HPI Details Patient comes in today for his follow up visit States that he feels okay He denies any headaches or dizziness Denies any chest pains, no increased SOB No nausea/vomiting, no abdominal pain No change in bowel habits noted Adds that he just had some chest imaging studies (CT) done at [facility] over the past week or so for surveillance of his Hx of esophageal cancer and aneurysm - was reportedly advised that his tests all came back normal He had his follow-up labs done last week - to discuss his results [facility] Medical History COVID-19 vaccine administered Overweight (BMI 25.0-29.9) Anxiety History of esophageal cancer Vitamin D deficiency Lumbar degenerative disc disease Osteoarthritis Impaired fasting glucose AAA (abdominal aortic aneurysm) without rupture Benign essential hypertension Pure hypercholesterolemia Esophageal adenocarcinoma Pneumonia Aneurysm TIA (transient ischemic attack) COPD (chronic obstructive pulmonary disease) BPH (benign prostatic hyperplasia) Surgical History History of shoulder surgery History of hip surgery History of bunionectomy of right great toe (~01/26/13) Hx of colonoscopy History of bunionectomy of left great toe (~02/2016) History of colonoscopy History of esophagectomy (~10/15/16) History of incisional hernia repair S/P AAA repair (~05/26/19) Family History Daughter Breast cancer Father Substance abuse Social History Household Members: Spouse [facility] Alcohol intake: current Alcohol intake frequency: holidays/special occasions only Alcohol type: beer Patient Tobacco Use Status: Former Tobacco user Tobacco use type: Cigarette Cigarette Packs Per Day: 2 e-Cigarette/Vaping Use: Never Used Second Hand Smoke Exposure: Yes service: Yes ([employer] and [place]) Current occupational status: retired Cognitive needs: No Hearing needs: Yes Vision needs: Yes (glasses) Questionnaire PHQ-9 Over the last 2 weeks, how often have you been bothered by any of the following problems? 1. Little interest or pleasure in doing things: not at all 2. Feeling down, depressed, or hopeless: not at all 3. Trouble falling or staying asleep, or sleeping too much: not at all 4. Feeling tired or having little energy: not at all 5. Poor appetite or overeating: not at all 6. Feeling bad about yourself - or that you are a failure or have let yourself or your family down: not at all 7. Trouble concentrating on things, such as reading the newspaper or watching television: not at all 8. Moving or speaking so slowly that other people could have noticed. Or the opposite - being so fidgety or restless that you have been moving around a lot more than usual: not at all 9. Thoughts that you would be better off or of hurting yourself in some way: not at all Total score: 0 Depression Screening Interpretation: Negative Depression Screening Done: Yes 80792 - PHQ-9 Billing: Yes Source: Developed by Drs. David Chakraborty, Veronica Allan, Demetrio Roberts and colleagues, with an educational crys from [email or web address]. Thrive Questionnaire Date Thrive assessed: 11/18/24 I am a: Patient What is your living situation today?: I have a steady place to live Within the past 12 months, did the food you bought not last and you didn't have the money to get more?: Never true Within the past 12 months, did you worry whether your food would run out before you got money to buy more?: Never true Do you have trouble paying for medicines?: No Do you have trouble getting transportation to medical appointments?: No Do you have trouble paying your heating and electricity bill?: No Do you have trouble taking care of your child, family member or friend?: No Do you have trouble with day-to-day activities such as bathing, preparing meals, shopping, managing finances, etc.?: No Are you currently unemployed and looking for a job?: No Are you interested in more education?: No Please select the resources that you would like help with: None Currently or been in a relationship where the following occur: No concerns reported THRIVE Score: 0 AUDIT C Alcohol Use Questionnaire (AUDIT-C) 1. How often do you have a drink containing alcohol?: Monthly or less 2. How many drinks containing alcohol do you have on a typical day when you are drinking?: 1 or 2 3. How often do you have six or more drinks on one occasion?: Never Total Score: 1 Score Reviewed/Action Taken: Yes SHRUTHI-7 AMB Questionnaire SHRUTHI-7 Date SHRUTHI - 7 assessed: 11/18/24 Feeling nervous, anxious, or on edge: 0 = Not at all Not being able to stop or control worryin = Not at all Worrying too much about different things: 0 = Not at all Trouble relaxin = Not at all Being so restless that it is hard to sit still: 0 = Not at all Becoming easily annoyed or irritable: 0 = Not at all Feeling afraid as if something awful might happen: 0 = Not at all Total SHRUTHI-7 score (0-4 normal; 5-9 mild; 10-14 moderate; 15-21 severe): 0 Source: Developed by Drs. David Chakraborty, Veronica Allan, Demetrio Roberts and colleagues, with an educational crys from [email or web address]. SHRUTHI-7 Assessment Billing SHRUTHI-7 Assessment Tool: SHRUTHI-7 Assessment 99317 Review of Systems Const Denies chills, Denies fatigue, Denies fever(s) and Denies headache(s) ENT Denies dysphagia, Denies dizziness, Denies otalgia, Denies headache(s), Denies neck pain, Denies odynophagia and Denies sore throat Card Denies chest pain, Denies palpitations and Reports dyspnea on exertion (mild, occasionally) Resp Denies chest congestion, Denies cough and Reports dyspnea on exertion (mild, occasionally) GI Denies abdominal pain, Denies constipation, Denies dysphagia, Denies heartburn, Denies diarrhea, Denies nausea, Denies odynophagia and Denies vomiting Denies difficulty urinating, Denies dysuria, Denies nocturia and Denies urinary frequency Musc Denies back pain, Denies arthralgias and Denies neck pain Skin/Breast Denies rash Neuro Denies dizziness and Denies headache(s) Endo Denies fatigue and Denies palpitations Physical exam (Primary Care) Vital Signs: Last Vital Signs Temp 97.1 F 11/18/24 10:11 Pulse 85 11/18/24 10:11 BP 122/70 11/18/24 10:11 Pulse Ox 96 11/18/24 10:11 BMI result Body Mass Index 21.5 Tobacco/Smoking Status: Tobacco use Status Tobacco use date assessed 11/18/24 11/18/24 10:01 Patient Tobacco Use Status Former Tobacco user 11/18/24 10:01 Tobacco use type Cigarette 11/18/24 10:01 e-Cigarette/Vaping Use Never Used 11/18/24 10:01 PHQ-9: PHQ-9 Score PHQ-9: Total score 0 11/18/24 10:01 Depression Screening Interpretation: Negative Thrive Assessment: Date of Thrive Assessment Date Thrive assessed 11/18/24 11/18/24 10:01 Currently or been in a relationship where the following occur: No concerns reported Const General: no acute distress and alert HENMT Ears: TM's normal bilaterally and EAC's normal Throat: Yes posterior oropharynx normal and Yes tonsils normal (no TP congestion noted) Neck Neck: Yes supple and No lymphadenopathy Thyroid: Thyroid normal Resp Auscultation: clear to auscultation bilaterally, no rales and no wheezes Cardio Rate: regular rate Rhythm: regular rhythm Heart sounds: no murmurs GI Palpation (GI): Soft to palpation and nontender Auscultation: normal bowel sounds General: Yes no CVA tenderness Back/Spine/Pelvis Back: no CVA tenderness Thoracic/Lumbar Spine: lumbar spinal tenderness (mild) Skin Rashes: no rashes Extrem General: Yes no clubbing, cyanosis or edema Results Reviewed Results Reviewed: Laboratory Tests 11/09/24 08:24 WBC 7.0 Hgb 14.1 Hct 43.6 Plt Count 200 Sodium 141 Potassium 5.0 Creatinine 0.75 Estimated GFR > 60 Fasting Glucose 91 Hemoglobin A1c % 5.7 Calcium 9.3 AST 26 ALT 20 Triglycerides 85 Cholesterol 128 LDL Cholesterol, Calc 73 HDL Cholesterol 38 L TSH 1.36 Ur Specific Holcomb 1.010 Urine Protein Negative Urine Glucose (UA) Negative Urine Blood Negative Urine Nitrite Negative Ur Leukocyte Esterase Negative Coding Level of Care Code Est Pt Level 4 (01329) Complex EM visit Add On G2211 Diagnoses Pure hypercholesterolemia E78.00 Benign essential hypertension I10 Impaired fasting glucose R73.01 Chronic obstructive pulmonary disease, unspecified COPD type J44.9 COPD type: unspecified COPD Abdominal aortic aneurysm (AAA) without rupture, unspecified part I71.40 Abdominal aorta location: unspecified Vitamin D deficiency E55.9 Degeneration of intervertebral disc of lumbar region with discogenic back pain M51.360 Disc-related pain type: discogenic back pain only Primary osteoarthritis, unspecified site M19.91 Osteoarthritis location: unspecified site Osteoarthritis type: primary History of esophageal cancer Z85.01 Benign prostatic hyperplasia, unspecified whether lower urinary tract symptoms present N40.0 Lower urinary tract symptom presence: unspecified whether lower urinary tract symptoms present Anxiety F41.9 Additional Codes SHRUTHI-7 Assessment Billing - SHRUTHI-7 Assessment Tool: SHRUTHI-7 Assessment 84925 ([id number]) PHQ-9 - 97943 - PHQ-9 Billing: Yes ([id number]) Assessment & Plan Assessment & Plan (1) Pure hypercholesterolemia: Code(s): E78.00 - Pure hypercholesterolemia, unspecified Category: Medical Plan: Results of his labs done last week reviewed and discussed with patient Reinforced low cholesterol diet Continue Simvastatin 20 mg QD Will recheck his labs and fasting lipids in 4 months for follow-up (2) Benign essential hypertension: Code(s): I10 - Essential (primary) hypertension Category: Medical Plan: Reinforced low-sodium diet - goal is systolic BP of at least 140 mm or less Patient's BP remains very well-controlled Continue Losartan 25 mg QD He is reminded to continue monitoring his blood pressure regularly (3) Impaired fasting glucose: Code(s): R73.01 - Impaired fasting glucose Category: Medical Plan: His HgbA1c remained normal at 5.7% on his recent labs (was normal at 5.4% when checked a few times in the past) FBS was also normal at 91 mg/dl on his recent labs Reinforced low calorie diet / exercise as tolerated (4) COPD (chronic obstructive pulmonary disease): Code(s): J44.9 - Chronic obstructive pulmonary disease, unspecified Category: Medical Qualifiers: COPD type: unspecified COPD Qualified Code(s): J44.9 - Chronic obstructive pulmonary disease, unspecified Plan: Controlled Continue Stiolto Respimat 2.5 mcg 2 puffs QD and Albuterol HFA 2 puffs 4 times a day PRN Follow up with pulmonary as scheduled (5) AAA (abdominal aortic aneurysm) without rupture: Comment: S/P AAA repair at [facility] on 01/24/2019 - (+) aortoiliac stent graft over infrarenal AAA Code(s): I71.4 - Abdominal aortic aneurysm, without rupture Category: Medical Qualifiers: Abdominal aorta location: unspecified Qualified Code(s): I71.40 - Abdominal aortic aneurysm, without rupture, unspecified Plan: S/P surgical repair of endoleak over his aortoiliac stent graft on 03/03/[address] Dockery at [facility] States that he has been doing well since with no acute issues and that he recently had repeat imaging studies done at [facility] that came out normal Follow up with vascular surgery as scheduled for continuing management and surveillance (6) Vitamin D deficiency: Code(s): E55.9 - Vitamin D deficiency, unspecified Category: Medical Plan: Continue Vitamin D 2000 units every other day (7) Lumbar degenerative disc disease: Code(s): M51.36 - Other intervertebral disc degeneration, lumbar region Category: Medical Qualifiers: Disc-related pain type: discogenic back pain only Qualified Code(s): M51.360 - Other intervertebral disc degeneration, lumbar region with discogenic back pain only Plan: Reinforced activity and weight lifting restrictions to avoid aggravating his low back pain (8) Osteoarthritis: Code(s): M19.90 - Unspecified osteoarthritis, unspecified site Category: Medical Qualifiers: Osteoarthritis location: unspecified site Osteoarthritis type: primary Qualified Code(s): M19.91 - Primary osteoarthritis, unspecified site Plan: States that his joint pains have been mostly manageable Reinforced regular exercise to help minimize his joint pains and stiffness (9) History of esophageal cancer: Comment: S/P [place] [facility] esophagectomy on 10/15/2016 Code(s): Z85.01 - Personal history of malignant neoplasm of esophagus Category: Medical Plan: Continue Omeprazole [address] done recently reportedly showed no evidence of metastatic disease Follow-up with Oncology (Dr. Delarosa) as scheduled for continuing surveillance - sees Dr. Delarosa once a year now (10) BPH (benign prostatic hyperplasia): Code(s): N40.0 - Benign prostatic hyperplasia without lower urinary tract symptoms Category: Medical Qualifiers: Lower urinary tract symptom presence: unspecified whether lower urinary tract symptoms present Qualified Code(s): N40.0 - Benign prostatic hyperplasia without lower urinary tract symptoms Plan: Continue Finasteride 5 mg QD and Tamsulosin 0.4 mg QD Follow up with urology as scheduled (11) Anxiety: Code(s): F41.9 - Anxiety disorder, unspecified Category: Medical Plan: Continue Citalopram 10 mg QD Plan Follow-up in 4 months Orders: Orders Complete Blood Count Auto Diff 4 Months D64.9 - Anemia, unspecified Lipid Panel 4 Months E78.00 - Pure hypercholesterolemia, unspecified UA CC w/rflx Micro + Cult 4 Months R30.0 - Dysuria Hemoglobin A1c 4 Months R73.01 - Impaired fasting glucose Comprehensive [place]. Panel Fast 4 Months E78.00 - Pure hypercholesterolemia, unspecified TSH reflex Free T4 4 Months E78.00 - Pure hypercholesterolemia, unspecified
[2024-11-18 10:11] VITALS: BP 122/70; PULSE 85; TEMP 36.2; O2SAT 96; BMI 21.5
--- OUTSIDE RECORDS SUMMARY | 2024-11-18 10:19 | XMS_ITS | Clinical Summary ---
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 Encounters Date Type Department Care Team Description 11/16/2024 1:45 PM EDT Office Visit Thoracic Surgery - [place] [address] [place] [id number] Cordell Taylor PA 11/10/2024 4:11 PM EDT - 11/10/2024 11:59 PM EDT Hospital Encounter [facility] CT Scan [address] [place] [id number] History of esophageal cancer Discharge Disposition: Home or Self Care from Last 3 Months Surgical History Surgery Date Site/Laterality Comments OTHER SURGICAL HISTORY 05/26/2019 PROCEDURE: ---- OTHER ----; COMMENT: Endovascular Aortic repair OTHER SURGICAL HISTORY 02/03/2022 PROCEDURE: ---- OTHER ----; COMMENT: Aorta Aneurysm Medical History Medical History Date Comments Essential (primary) hypertension DX:Essential (primary) hypertension Hypercholesteremia DX:Hyperchole steremia Anxiety disorder DX:Anxiety diso rder Esophageal cancer ([facility] V24, [facility] V28) DX:Esophageal cancer ([facility]) Social History Tobacco Use Types Packs/Day [...] Sign Reading Time Taken Comments Blood Pressure 119/73 11/16/2024 1:49 PM EDT Pulse 51 11/16/2024 1:49 PM EDT Temperature 37 ??C (98.6 ??F) 11/16/2024 1:49 PM EDT Respiratory Rate 14 11/16/2024 1:49 PM EDT Oxygen Saturation 98% 11/16/2024 1:49 PM EDT Inhaled Oxygen Concentration - - Weight 67.9 kg (149 lb 12.8 oz) 11/16/2024 1:49 PM EDT Height 175.3 cm (5' 9 ) 11/16/2024 1:49 PM EDT Body Mass Index 22.12 11/16/2024 1:49 PM EDT Plan of Treatment Upcoming Encounters Date Type Department Care Team (Late st Contact Info) Description 12/19/2024 8:30 AM EDT Office Visit Vascular Surgery - [place] [address] [place] [address] Cedric Durham MD [address] [place] [address] Health Maintenance Due Date Last Done Comments RSV Immunization Adult Patients (1 - 1-dose 75+ series) 10/08/2018 COVID-19 Vaccine (3 - Moderna risk series) 11/06/2020 2020, 09/12/2020 Cholesterol Screening (Lipid Panel) 07/12/2022 Depression Screening 07/12/2022 Falls Risk Assessment 07/12/2022 Medicare Annual Wellness Visit 07/12/2022 Social Influencers of Health Screening 07/12/2022 DTaP,Tdap,and Td Vaccines (3 - Td or Tdap) 05/25/2032 05/25/2022, 05/08/2016 Pneumococcal Vaccine: 50+ Years Completed 04/24/2018, 05/20/2016, 04/30/2015 Zoster Vaccines Completed 05/06/2018, 04/10, 02/23/2018, Additional history exists Influenza Vaccine Completed 05/13/2024, , 05/13/2020, Additional history exists HIB Vaccines Aged Out No longer eligi [...] age to complete this topic Meningococcal B Vaccine Aged Out No l onger eligible based on patient's age to complete this topic RSV Immunization Patients Under 20 months Aged Out No longer eligible based on patient's age to complete this topic Varicella Vaccines Aged Out No longer eligible based on patient's age to complete this topic Procedures Procedure Name Priority Date/Time Associated Diagnosis Comments CT CHEST/ABDOMEN/PELVI S W CONTRAST STAT 11/10/2024 6:17 PM EDT History of esophageal cancer BUN STAT 11/10/2024 4:00 PM EDT Preop examination CREATININE, SERUM STAT 11/10/2024 4:0 0 PM EDT Preop examination from Last 3 Months Results * CT Chest/Abdomen/Pelvis w Contrast (11/10/2024 6:17 PM EDT) Anatomical Region Laterality Modality Body Computed Tomogra phy 11/10/2024 7:01 PM EDT Impressions 11/10/2024 7:01 PM EDT Impression: Partial esophagectomy. No definite metastatic disease. Emphysema. If there is concern for endoleak involving the abdominal aortic stent graft recommend correlation with precontrast images. Other findings as above. This document has been electronically signed by: Alec Silver MD on 11/10/2024 19:01:25 Narrative 11/10/2024 7:01 PM EDT INDICATION: history of esophageal cancer. Surveillance. CT of the chest, abdomen and pelvis utilizing intravenous contrast. No comparison. Findings: There has been a partial esophagectomy with a gastric pull-through. There is mild nonspecific dilatation of the remaining proximal esophagus. No pleural or pericardial effusion is seen. No enlarged mediastinal lymph nodes are identified. There is mild ectasia of the aortic arch. There are changes of emphysema. No focal consolidation is seen. There is mild atelectasis or scarring in the lungs. There is mild mucous plugging in the left lower lobe. Punctate hepatic hypodensities are presumably cysts. The gallbladder is unremarkable. No hydronephrosis. There is a nonobstructive right renal stone. Mild right renal scarring. Cyst lower pole left kidney. There is prominent pancreatic atrophy. An aortic stent graft is in place. Endoleak can not be evaluated for due to lack of precontrast images. There is prominent stool throughout the colon. The small bowel is nondilated. There is mild bladder dilatation. Procedure Note Jose M Silver MD - 11/10/2024 INDICATION: history of esophageal cancer. Surveillance. CT of the chest, abdomen and pelvis utilizing intravenous contrast. No comparison. Findings: There has been a partial esophagectomy with a gastric pull-through.There is mild nonspecific dilatation of the remaining proximal esophagus. No pleural or pericardial effusion is seen. No enlarged mediastinal lymph nodes are identified. There is mild ectasia of the aortic arch. There are changes of emphysema. No focal consolidation is seen. There is mild atelectasis or scarring in the lungs. There is mild mucous plugging in the left lower lobe. Punctate hepatic hypodensities are presumably cysts. The gallbladder is unremarkable. No hydronephrosis. There is a nonobstructive right renal stone. Mild right renal scarring. Cyst lower pole left kidney. There is prominent pancreatic atrophy. An aortic stent graft is in place. Endoleak can not be evaluated for due to lack of precontrast images. There is prominent stool throughout the colon. The small bowel is nondilated. There is mild bladder dilatation. IMPRESSION: Impression: Partial esophagectomy. No definite metastatic disease. Emphysema. If there is concern for endoleak involving the abdominal aortic stent graft recommend correlation with precontrast images. Other findings as above. This document has been electronically signed by: Alec Silver MD on 11/10/2024 19:01:[address] PROCEDURES Final Resul t * Creatinine (11/10/2024 4:00 PM EDT) Creatinine 0.76 0.70 - 1.30 mg/dL LAB CHEMISTRY METHOD 11/10/2024 5:19 PM EDT [facility] eGFR 90 >=60 mL/min/1. 73m2 LAB CHEMISTRY METHOD 11/10/2024 5:19 PM EDT [facility] Comment:Calculation based on the??Chronic Kidney Disease Epidemiology Collaboration (CKD-EPI) equation refit??without adjustment for race. Blood Venous blood specimen / Unknown Venipuncture / Unknown 11/10/2024 4:00 PM EDT 11/10/2024 5:19 PM EDT Ellie Chiang THERMOFORMING OPERATOR LAB BLOOD ORDERABLES Final Result Performing Organization Address City/[facility]/ZIP Co de Phone Number [facility] [address] [place] [address], [place] [phone] * BUN (11/10/2024 4:00 PM EDT) Pathologist [facility] BUN 13 5 - 25 mg/dL LAB CHEMISTRY METHOD 11/10/2024 5:19 PM EDT [facility] Blood Venous blood specimen / Unknown Venipuncture / Unknown 11/10/2024 4:00 PM EDT 11/10/2024 5:19 PM EDT Ellie Chiang THERMOFORMING OPERATOR LAB BLOOD ORDERABLES Final Result [facility] [address] [place] [address], [place] [phone] from Last 3 Months Insurance MEDICARE [facility] Care Teams Senior Technical Recruiter Relationship Specialty Start Date End Date Sergio Ballesteros MD [address] [place] [address] Dr [address] RUI Davison PCP - General Internal Medicine 10/15/16
--- OUTSIDE RECORDS SUMMARY | 2024-11-18 10:19 | XMS_ITS | Continuity of Care Document ---
Author Name [facility] Organization [facility] Care Team Providers Care Market Sales Manager Name Role Phone [facility] Unavailable Unavailable Problems Combined list of problems from Department of Defense and Veterans Affairs facilities. It does not include entries that were removed or entered in error. Problem Status Onset Date Problem Type Date of Resolution Comments Source Abdominal aortic aneurysm Active Condition Oct 29, 2020 Entered By: VIPUL SLADE Comment: repair 2019 [place] Benign prostatic hypertrophy Active Condition [place] Bunion Active Condition Oct 10 16 Entered By: MAYI CRUZ Comment: s/p R surgery 12/21 [place] Chronic obstructive lung disease Active Condition [place] Closed fracture of clavicle Active Condition Oct 11, 2015 Entered By: MAYI CRUZ Comment: x3 s/p bone graft from hip to R clavicle 1965 [place] Environmental allergy (SNOMED CT [id number]) Active Condition [facility] Gastroesophageal reflux disease without esophagitis Active Condition [facility] Hearing loss [facility] History of malignant neoplasm of oesophagus Active Condition Nov 13, 2021 Entered By: VIPUL SLADE Comment: 10/2016 - s/p Beaver-Jani Esophagectomy [place] HTN - Hypertension (SCT 26510767) Active Condition [facility] Hyperlipidemia (SCT 30726325) Active Condition [facility] Insomnia Active Condition [facility] NON [facility] PCP Active Condition Nov 07 Entered By: VIPUL SLADE Comment: nonVA PCP: Dr Sergio Palmer 2020 Entered By: VIPUL SLADE Comment: Oncology: Dr. Heard 2020 Entered By: VIPUL SLADE Comment: Vascular: Dr. Coelho 2020 Entered By: VIPUL SLADE Comment: Circus Train Supervisor: Dr Gil 2020 Entered By: VIPUL SLADE Comment: Classified Advertising Manager: Dr Keller [facility] Osteoarthritis Active Condition [facility] Prediabetes Active Condition [facility] [place] [facility] Primary erect[facility] dysfunction Active Condition [facility] Tinnitus Active Condition [place] Vitamin D deficiency Active [facility] Diagnosis: ICD-10-CM I10 Essential (primary) hypertension Active Diagnosis [place] Diagnosis: ICD-10-CM Z46.0 Encounter for fit/adjst of spectacles and contact lenses Active Diagnosis [facility] Diagnosis: ICD-10-CM H25.13 Age-related nuclear cataract, bilateral Active Diagnosis [facility] Medications Combined list of outpatient medications from [...] (INHAL ATION) ACTIVE FERMIN SLADE SA 2020 [facility] OMEPRAZOLE 20MG CAP,EC TAKE 2 CAPSULES BY MOUTH EVERY MORNING 30 MINUTES BEFORE BREAKFAS T ORAL ACTIVE YANYFERMIN SA 2020 [facility] SIMVASTATIN 40MG TAB TAKE ONE-HALF TABLET BY MOUTH DAILY ORAL ACTIVE MEGHA CRUZ KENNY 2015 [facility] TAMSULOSIN HCL 0.4MG CAP TAKE 1 CAPSULE BY MOUTH AT BEDTIME ORAL ACTIVE MEGHA CRUZ KENNY 2015 [facility] VITAMIN D3 (CHOLECALCI FEROL) TAB TAKE 5000IU BY MOUTH ONCE DAILY ORAL ACTIVE FERMIN SLADE SA 2020 [facility] Allergies, Adverse Reactions, Alerts Combined list of allergies from Department of Defense and Veterans Affairs facilities. It does not include entries that were removed or entered in error. Substance Category Reaction Severity Reaction type Status Date Reported Comments Source LACTOSE Propensity to adverse reactions to substance (finding) active [facility] Immunizations Combined list of available immunizations from the Department of Defense and Veterans Affairs facilities. Immunization Series Date Given Administered By Site Reaction Lot Number CVX Code Drug Cryptologic Support Specialist Status Comments Source INFLUENZA, UNSPECIFIED FORMULATION 2020 88 complet ed [facility] COVID-19 (MODERNA), MRNA, LNP-S, PF, 100 MCG/0.5 ML DOSE 2 2020 207 complet ed [facility] COVID-19 (MODERNA), MRNA, LNP-S, PF, 100 MCG/0.5 ML DOSE 1 2020 207 complet ed [facility] INFLUENZA, SEASONAL, INJECTABLE 2017 141 complet ed [facility] ZOSTER RECOMBINANT 1 2017 187 complet ed yes [place] [facility] INFLUENZA, SEASONAL, [...] ed 2nd: 05/15/14, 3rd: 10/16/14 record [facility] ZOSTER (HISTORICAL) 1997 121 complet ed [facility] Vital Signs Combined list of inpatient and outpatient Vital Signs from Department of Defense and Veterans Affairs, ranging from 12 months to all on record, depending upon the facility. Vital Sign Value Date Comments Source SYSTOLIC BLOOD PRESSURE 127 11/16/19 25 10:32:43 [facility] DIASTOLIC BLOOD PRESSURE 79 025 10:32:43 [facility] PULSE OXIMETRY 96 11/15/2024 10:32:43 [facility] WEIGHT 145.2 11/15/2024 10:32:43 [facility] BMI 21 kg/m2 11/15/2024 10:32:43 [facility] PAIN 0 11/15/2024 10:32:43 [facility] HEIGHT 69 11/15/2024 10:32:43 [facility] TEMPERATURE 97.3 11/15/2024 10:32:43 [facility] PULSE 53 11/15/2024 10:32:43 [facility] RESPIRATION 16 11/15/2024 10:32:43 [facility] SYSTOLIC BLOOD PRESSURE 147 11/19/19 24 09:00:35 [facility] DIASTOLIC BLOOD PRESSURE 77 024 09:00:35 [facility] [place] [facility] PULSE OXIMETRY 95 11/19/2023 09:00:35 [facility] [...] to the last 18 months, not all [place] inpatient encounters are included; 2) Encounters from the Department of [facility] facilities going backup to 280 months. Location Location Details Encounter Type Encounter Number Reason For Visit Attending Provider ADM Date DC Date Status Disposition Source [facility] [place] [facility] Outpatient Encounter [id number] 07/20 [place] [facility] [place] [facility] [place] [facility] EYE EXAM&TX ESTAB PT 1/>VST [id number] Diagnos is: ICD-10- CM H25.13 Age-rel ated nuclear catarac t, bilater al CAMRON FELIX 07/21 [place] [facility] [place] [facility] FIT SPECTACLES BIFOCAL [id number] Diagnos is: ICD-10- CM Z46.0 Encount er for fit/adj st of spectac les and contact lenses CAMRON FELIX 07/21 [facility] RPR&REFITG SPECT XCP APHAKIA [id number] Diagnos is: ICD-10- CM Z46.0 Encount er for fit/adj st of spectac les and contact lenses SHANIQUA DAO TREE FOX 08/12 [place] [facility] [place] [facility] [place] OFFICE O/P EST LOW 20 MIN [id number] Diagnos is: ICD-10- CM I10 Essenti al (primar y) hyperte RONA Naik MARISSA 11/18 [facility] [place] [facility] [place] [facility] Outpatient Encounter [id number] RONA SLADE 11/18 [place] [facility] [place] [facility]P EST LOW 20 MIN [id number] Diagnos is: ICD-10- CM I10 Essenti al (primar y) hyperte RONA Naik 11/15 [facility] IE Social History Combined list of available smoking, tobacco, and other social history from Department of Defense and Veterans Affairs facilities. Social History Type Response Date Comment Source Tobacco smoking status [facility] VA-TOBACCO USE FORMER CIGARETTES 11/15/2024 [place] History of tobacco use VA-TOBACCO NEVER USED OTHER TYPE 11/15/2024 [place] History of tobacco use VA-TOBACCO FORMER USER 11/19/2023 [facility] [place] [facility] History of tobacco use VA-TOBACCO FORMER USER 11/13/2022 [place] History of tobacco use VA-TOBACCO FORMER USER 11/13/2021 [place] History of tobacco use VA-TOBACCO QUIT 15 YRS OR MORE 11/06/2020 [place] [facility] [place] [facility] History of tobacco use VA-TOBACCO FORMER USER 12/10/2018 [place] History of tobacco use QUIT TOBACCO USE > 7 YEARS AGO 12/08/2017 quit 27 yrs ago [place] History of tobacco use QUIT TOBACCO USE > 7 YEARS AGO 12/08/2016 [place] History of tobacco use QUIT TOBACCO USE > 7 YEARS AGO 10/11/2015 [place]
--- OUTSIDE RECORDS SUMMARY | 2024-11-18 10:19 | XMS_ITS | Data Portability ---
Author Organization [place] - [facility], Allergy Address [address] [address] Assessment No assessment recorded. Plan of Treatment [...] Recorded Time Impacted cerumen of bilateral ears [id number] Active 2016 Impacted cerumen, bilateral ; Note: Date Diagnosed : 01/09/2017 2:26 PM (H61.23) Not Available [facility] 4 02:14:17 Dysphonia 78147733 Active 2016 Other voice and resonance disorders ; Note: Date Diagnosed : 02/27/2017 5:18 PM (R49.8) Not Available [facility] 4 02:15:01 Finding of resonance of voice 041970605 Active 2016 Other voice and resonance disorders ; Note: Date Diagnosed : 02/27/2017 5:18 PM (R49.8) Not Available [facility] 4 02:15:01 Sensorine ural hearing loss of bilateral ears 036421842 Active 2016 Sensorine ural hearing loss, bilateral ; Note: Date Diagnosed : 01/09/2017 2:31 PM (H90.3) Not Available [facility] 4 02:14:22 History of malignant neoplasm of esophagus 018340972 Active 2016 Personal history of malignant neoplasm: Esophagus ; Note: Date Diagnosed : 01/09/2017 2:31 PM (V10.03) Nava hunter history of malignant neoplasm of esophagus ; Note: Date Diagnosed : 01/09/2017 2:31 PM (Z85.01) Not Available [facility] 4 02:12:57 Paralysis of larynx 43957538 Active 2016 Paralysis of vocal cords and larynx, unilatera l; Location: left Note : Date Diagnosed : 01/09/2017 4:31 PM (J38.01) Not Available [facility] 4 02:13:52 Tinnitus of left ear 53665860477 06 Active 2023 JENNIFER SANFORD MD [address] [facility],[place] [address], [facility], [address] , [facility] - [facility] 4 15:08:49 Deviated nasal septum 207607903 Active 2023 JENNIFER SANFORD MD [address] [facility],[place] [address], [facility] [place], [address] , [place] - [facility] 4 15:09:16 Problem Notes None recorded. Procedures Surgical History Date Name Laterality Status Provider Name and Address Organization Details Recorded Time 4 Comp Audio with Tymps (06350 & 78022) completed MCKENZIE HERNANDEZ [address] [facility],[place] [address], [place], [address], [facility] - [facility] 02/26/2024 15:15:42 Cerumen removal with microscope completed JENNIFER COPELAND MD [address] [facility],[address], [address], [facility] - [facility] 02/26/2024 15:08:35 Imaging Results Imaging Date [...] aerosol inhaler 2013 active Medicati on ID: [id number] D uration Value: 90 Brand Name: Advair [...] Updated DateTime 02/26/2024 175.26 cm 22.9 kg/m2 06019.82 g Jerome Morales [place] - [facility] 02/26/2024 14:45:32 Social History None recorded. Functional Status None recorded. Mental Status None recorded. Family History Nothing Reported. Medical History Condition Response Cancer Y Arthritis Y Hypertension Y COPD Y Kidney Disease Y Past Encounters Encounter ID Performer Location Encounter Start Date Encounter Closed Date Diagnosis/Indication Diagnosis SNOMED-CT Code Diagnosis ICD10 Code Diagnosis Note [id number] JENNIFER SANFORD MD [facility] [address] [address] 02/26/2024 14:28:14 02/26/2024 15:42:03 Impacted cerumen of bilateral ears [id number] 917419 H61.23 Suggested 3 drops distilled vinegar in each ear twice weekly to prevent the buildup of cerumen Tinnitus of left ear 833 6005542 106 H93.12 Audiogram shows symmetric SNHL. Tinnitus present for many years after acoustic trauma. Hold off on any imaging. Deviated nasal septum 12 5266035 J34.2 asymptomat ic. [place] on [id number] MCKENZIE HERNANDEZ [facility] [address] [address] 02/26/2024 15:11:22 02/26/2024 17:59:42 Sensorineural hearing loss of bilateral ears 320766182 H90.3 Tinnitus of left ear 121 2408376 106 H93.12 Right Ear:Modera te to severe [...] Member ID Guarantor Name 02/26/2024 1 MEDICARE B-[place]: [employer] David Cosby [id number] David Cosby 02/26/2024 1 MEDICARE B-[place]: [employer] David Cosby [id number] David Cosby Notes Date Note Type Note Provider Name and Address Organization Details Recorded Time 02/26/2024 text/html Last seen 2016 with dysphonia following esophageal resection. Cancer free for 6 yrs. Voice normal. Chronic left HL and tinnitus due to noise exposure. Has Hearing aids. [facility] JENNIFER COPELAND MD [address] [place] [address], [place], [address], [place] - [facility] 02/26/2024 16:24:49
--- OUTSIDE RECORDS SUMMARY | 2024-11-18 10:19 | XMS_ITS | Encounter Summary ---
Author Name [facility] [place] [facility] [place] Address [address] [place] [id number] Care Team Providers Care Director Medical Name Role Phone YANYVIPUL Primary Care Provider [...] PART A Sep 10, 2008 PART A [id number] CAITLYN LAZO ERT PATIENT MEDICARE (WNR) MEDICARE (M) PART B Sep 10, 2008 PART B [id number] CAITLYN LAZO ERT PATIENT MEDICARE (WNR) MEDICARE (M) PART A Sep 10, 2008 PART A [id number] CAITLYN LZAO ERT PATIENT MEDICARE (WNR) MEDICARE (M) PART B Sep 10, 2008 PART B [id number] CAITLYN LAZO ERT PATIENT FOR LIFE TFL* Nov 25, 2012 [id number] CAITLYN LAZO ERT PATIENT Selected Encounter This section includes the information on record at [place] for the Encounter. Date/Time Encounter Type Encounter Description Reason Provider Source Nov 15, 2024 10:30 AM OFFICE O/P EST LOW 20 MIN PRIMARY CARE/MEDICINE ICD-10-CM I10 Essential (primary) hypertension VIPUL SLADE Chris Encounter Template Text not used by [place] Assessments - Encounter Diagnoses This section includes the primary and secondary diagnoses documented for the Encounter. Date/Time Primary/Secondary Diagnosis Diagnosis Name Provider Source Nov 15, 2024 10:39 AM PRIMARY Essential (primary) hypertension VIPUL SLADE MARY Nov 15, 2024 10:39 AM SECONDARY Hyperlipidemia, unspecified VIPUL SLADE [place] Social History: Smoking Status (Most current) and Tobacco Use (All prior to encounter date) This section includes the most current, and the historical, smoking and tobacco- related health factors from the [place] facility where the Encounter took place. Current Smoking Status This section includes the most current smoking, or tobacco-related health factor, from the [place] facility where the Encounter took place. Date/Time Current Smoking Status Comment Facil ity Nov 15, 2024 10:30 AM VA-TOBACCO NEVER USED OTHER TYPE [place] Tobacco Use History This section includes a history of the smoking, or tobacco-related health factors, that were collected on or before the date of the Encounter. The data comes from the [place] facility where the Encounter took place. Date/Time Smoking Status/Tobacco Use Comment F acility Nov 15, 2024 10:30 AM VA-TOBACCO USE FORMER CIGARETTES [place] Nov 13, 2022 09:00 AM VA-TOBACCO FORMER USER [place] Nov 13, 2022 09:00 AM VA-TOBACCO QUIT 15 YRS OR MORE [place] Nov 13, 2021 09:30 AM VA-TOBACCO FORMER USER [place] Nov 13, 2021 09:30 AM VA-TOBACCO QUIT 15 YRS OR MORE [place] December 10, 2018 11:59 AM VA-TOBACCO FORMER USER [place] December 10, 2018 11:59 AM VA-TOBACCO QUIT 15 YRS OR MORE [place] December 08, 2017 02:57 PM QUIT TOBACCO USE > 7 YEARS AGO quit 27 yrs ago [place] December 08, 2016 03:20 PM QUIT TOBACCO USE > 7 YEARS AGO [place] Oct 11, 2015 09:53 AM QUIT TOBACCO USE > 7 YEARS AGO [place] Encounter Notes: All associated encounter notes This section contains the clinical notes associated to the Encounter. Date/Time Encounter Note(s) Provider Source Nov 15, 2024 10:33 AM PREVENTIVE MEDICIN E NURSING NOTE: LOCAL TITLE: CLINICAL REMINDERS/NURSING STANDARD TITLE: PREVENTIVE MEDICINE NURSING NOTE DATE OF NOTE: NOV 15, 2024@10:33 ENTRY DATE: NOV 15, 2024@10:33:22 AUTHOR: RAMIRO RIGGS COSIGNER: URGENCY: STATUS: COMPLETED Advance Directive Screen MH AD: Patient has an up-to-date Advance Directive at an outside, non-va facility and was asked to forward a copy to his/her clinician. Suicide Screen: C-SSRS Screening [place] Suicide Severity Rating Scale (C-SSRS) screener 1. [...] required due to responses to other questions. Depression Screening: Perform PHQ-2 A PHQ-2 screen was performed. The score was 0 which is a negative screen for depression. Over the past two weeks, how often have you been bothered by the following problems? 1. Little interest or pleasure in doing things Not at all 2. Feeling down, depressed, or hopeless Not at all Falls & Incontinence Screen: Falls Screen: 4. No falls within the past year. Incontinence Screen No incontinence. Hepatitis B Immunization: The patient declines to receive the recommended dose of Hepatitis B vaccine. Immunization: HEP B, UNSPECIFIED FORMULATION Refusal Reason: PATIENT DECISION Patient refuses all immunization(s) in the HepB group Date Documented: 11/15/24 10:34 Pneumococcal Conjugate Vaccine (PCV15/PCV20/PCV21): Refuses PCV vaccine Immunization: PNEUMOCOCCAL CONJUGATE, UNSPECIFIED FORMULATION Refusal Reason: PATIENT DECISION Patient refuses all immunization(s) in the PneumoPCV group Date Documented: 11/15/24 10:34 Tobacco Use Screening: The patient is a former cigarette smoker. The patient has never used other types of tobacco. Influenza Immunization: Deferral / Refusal The patient declines to receive the recommended dose of seasonal influenza vaccine. Immunization: INFLUENZA, UNSPECIFIED FORMULATION Refusal Reason: PATIENT DECISION Patient refuses all immunization(s) in the FLU group Date Documented: 11/15/24 10:35 Alcohol Use Screen (AUDIT-C): Alcohol Screen: SCREEN FOR ALCOHOL (AUDIT-C) An alcohol screening test (AUDIT-C) was negative (score=1). 1. How often did you have a drink containing alcohol in the past year? Consider a drink to be a 12 ounce can or bottle of regular beer, 8 ounces of malt liquor, a 5 ounce glass of table wine, or a 1.5 ounce shot of liquor (like scotch, gin, or vodka). Monthly or less 2. How many drinks containing alcohol did you have on a typical day when you were drinking in the past year? One or two drinks 3. How often did you have six or more drinks on one occasion in the past year? Never COVID-19 Immunization: Refused Moderna Monovalent COVID-19 vaccine Immunization: COVID-19 (MODERNA), MRNA, LNP-S, PF, 50 MCG/0.5 ML (AGES 12+ YEARS) Refusal Reason: PATIENT DECISION Patient refuses all immunization(s) in the COVID-19 group Date Documented: 11/15/24 10:36 Herpes Zoster (Shingles) Vaccine: The patient declines to receive the recommended dose of zoster (shingles) vaccine. Immunization: ZOSTER RECOMBINANT Refusal Reason: PATIENT DECISION Patient refuses all immunization(s) in the ZOSTER group Date Documented: 11/15/24 10:36 RSV Immunization: Respiratory Syncytial Virus (RSV) Vaccine: Refused MST (Abrysvo, RSVpreF vaccine). Immunization: RSV, BIVALENT, PROTEIN SUBUNIT RSVPREF, DILUENT RECONSTITUTED, 0.5 ML, PF Refusal Reason: PATIENT DECISION Patient refuses all immunization(s) in the RSV group Date Documented: 11/15/24 10:36 Sexual Orientation: The patient thinks of their sexual orientation as: Straight or Heterosexual /es/ RAMIRO RIGGS LPN PACJaquelin 10 Signed: 11/15/2024 10:36 RAMIRO RIGGS [place] Nov 15, 2024 06:09 AM PHYSICIAN NOTE: LOCAL TITLE: MD NOTE STANDARD TITLE: PHYSICIAN NOTE DATE OF NOTE: NOV 15, 2024@06:09 ENTRY DATE: NOV 15, 2024@06:09:46 AUTHOR: VIPUL SLADE EXP COSIGNER: URGENCY: STATUS: COMPLETED HISTORY OF PRESENT ILLNESS: ALEJA LAZO is a 79 yo MALE who presents at the [facility] for his annual visit. [facility] maintains a nonVA PCP: Dr Sergio Ballesteros. He utilizes audiology and optometry services at the [place]. He brought lab results drawn 11/09/24 from his PCP. NonVA Specialists: Vascular: Dr Carr Oncologist: Dr Delarosa Electrical Test Technician: Dr Márquez Manager Global Communications: Dr Keller Active problems - Computerized Problem List is the source for the followin. Benign prostatic hypertrophy 2. Vitamin D deficiency 3. Gastroesophageal reflux disease 4. Primary erectile dysfunction 5. Insomnia 6. Environmental allergy 7. HTN - Hypertension 8. Hyperlipidemia 9. Prediabetes 10. NON VA PCP 11. History of malignant neoplasm of oesophagus 12. Chronic obstructive lung disease 13. Abdominal aortic aneurysm 14. Osteoarthritis 15. Bunion 16. Closed fracture of clavicle 17. Hearing loss 18. Tinnitus The following VA and Non-VA meds were reconciled with patient: Active Outpatient Medications (including Supplies): Start Date Active Non-VA Medications Status Stop Date 1) Non-VA ALBUTEROL 90MCG (CFC-F) 200D ORAL ACTIVE INHL Si PUFFS BY MOUTH NEEDED 2) Non-VA CETIRIZINE HCL 10MG TAB SiMG BY ACTIVE MOUTH DAILY 3) Non-VA CITALOPRAM HYDROBROMIDE 20MG TAB Sig: ACTIVE 10MG BY MOUTH DAILY 4) Non-VA FINASTERIDE 5MG TAB SiMG BY MOUTH ACTIVE DAILY 5) Non-VA LOSARTAN 25MG TAB SiMG BY MOUTH ACTIVE DAILY 6) Non-VA MULTIVITAMIN/MINERALS CAP/TAB Si ACTIVE TABLET BY MOUTH DAILY 7) Non-VA OLODATEROL/TIOTROP 2.5MCG/ACTUAT 60D ACTIVE INH Si PUFFS (1 DOSE) BY MOUTH ONCE DAILY 8) Non-VA OMEPRAZOLE 20MG EC CAP SiMG BY ACTIVE MOUTH EVERY MORNING 30 MINUTES BEFORE BREAKFAST 9) Non-VA SIMVASTATIN 40MG TAB SiMG BY ACTIVE MOUTH DAILY 10) Non-VA TAMSULOSIN HCL 0.4MG CAP Si.4MG ACTIVE BY MOUTH AT BEDTIME 11) Non-VA VITAMIN D3 (CHOLECALCIFEROL) TAB Sig: ACTIVE 5000IU BY MOUTH ONCE DAILY ALLERGIES: ========= LACTOSE HISTORY: PERIOD OF SERVICE - [facility] FROM Aug TO Aug COMBAT SERVICE INDICATED: No VITAL SIGNS: Blood Pressure 127/79 (11/15/2024 10:32) Pulse 53 (11/15/2024 10:32) Respiration 16 (11/15/2024 10:32) Pulse Oximetry 96% (11/15/2024 10:32) Temperature 97.3 F [36.3 C] (11/15/2024 10:32) Pain 0 (11/15/2024 10:32) Height 69 in [175.3 cm] (11/15/2024 10:32) Weight 145.2 lb [65.86 kg] (11/15/2024 10:32) BMI BMI: 21.5 REVIEW OF SYSTEMS: ENT: No sore throat, no cough CARDIOVASCULAR: No chest pain, no palps RESPIRATORY: No SOB, no wheezing GASTROINTESTINAL: No abd pain, no N/V/D GENITOURINARY: No urinary symptoms MUSCULOSKELETAL: No joint pain PSYCHIATRIC: No anxiety, no depression NEUROLOGIC: No H/A, no weakness EXAMINATION: GENERAL: WD/WN in NAD HEENT: Moist mucosa NECK: Supple HEART: RRR, S1-S2, no murmurs LUNGS: CTA B/L ABDOMEN: Soft, NT/ND EXTREMITIES: FROM x 4, no edema NEUROLOGIC: AAO x3, no FF's PSYCHIATRIC: Good eye contact ASSESSMENT/PLAN: 1. Hypertension: well controlled on losartan 25mg/day 2. Hyperlipidemia: on simvastatin 20mg QHS 3. Prediabetes: under dietary control 4. COPD: on Stiolto Respimat 2.5/2.5 2 puffs daily and albuterol inh QID prn 5. BPH: on tamsulosin 0.4mg/QHS and finasteride 5mg/day 7. Anxiety D/O: on citalopram 10mg/day 8. Perennial Allergies: on cetirizine 10mg/day 9. GERD: on omeprazole 40mg/day FOLLOW UP: 1 year - Annual - bring nonVA PCP labs ========= No barriers; Patient understands [...] of active outpatient prescriptions dispensed from this [place] (local) and dispensed from another [place] or [facility] facility (remote) as well as [...] Remote Allergy/ADR Data available for this patient [place] [facility] LACTOSE Med Recon [...] the patient into personal health records (i.e. [employer]) are NOT included in this list. Non-VA medications documented outside this [place], remote inpatient orders (regardless of status) and remote clinic medications are NOT included in this list. The patient and provider must always discuss medications the patient is taking, regardless of where the medication was dispensed or obtained. ------ Non-VA ALBUTEROL 90MCG (CFC-F) 200D ORAL INHL [...] ONCE DAILY Medication prescribed by Non-VA provider. ------ SUPPLIES ------ /bakari/ VIPUL SLADE MD Primary Care Physician Signed: 11/15/2024 10:56 VIPUL SLADE [place]
--- OUTSIDE RECORDS SUMMARY | 2024-11-18 10:19 | XMS_ITS | Encounter Summary ---
Author Organization [facility] Address [address] [place] [address] Care Team Providers [employer] Principal Name Role Phone Sergio Ballesteros MD Primary Care Provider Reason for Visit * Reason Comments Follow-up Chest CT 11/10/24 Encounter Details Date Type Department Care Team (Late st Contact Info) Description 11/16/2024 1:45 PM EDT Office Visit Thoracic Surgery - [place] [address] [place] [id number] Cordell Taylor PA [address] [place] [address] Social History Tobacco Use Types Packs/Day Years [...] Orientation Straight 06/08/2024 10 :51 AM EDT documented as of this encounter Last Filed Vital Signs Vital Sign Reading [...] Mass Index 22.12 11/16/2024 1:49 PM EDT documented in this encounter Plan of Treatment Upcoming Encounters Date Type Department Care Team (Late st Contact Info) Description 12/19/2024 8:30 AM EDT Office Visit Vascular Surgery - [place] [address] [place] [address] Cedric Durham MD [address] [place] [address] documented as of this encounter Visit Diagnoses Not on filedocumented in this encounter Care Teams [employer] Principal Relationship Specialty Start Date End Date Sergio Ballesteros MD [address] [place] [address] [address] [place], [place] PCP - General Internal Medicine 10/15/16 documented as of this encounter
== END 2024-11-18 11:08 | disposition home or self-care (01) ==
LOC: HO.HMCH 09:46
PROVIDERS: PCP Internal Medicine; Visit Provider Internal Medicine
DX: E78.00 Pure hypercholesterolemia, unspecified (principal); J44.9 Chronic obstructive pulmonary disease, unspecified; I71.40 Abdominal aortic aneurysm, without rupture, unspecified; I10 Essential (primary) hypertension; R73.01 Impaired fasting glucose; E55.9 Vitamin D deficiency, unspecified; M51.360 Other intervertebral disc degeneration, lumbar region with discogenic back pain only; M19.91 Primary osteoarthritis, unspecified site; Z85.01 Personal history of malignant neoplasm of esophagus; N40.0 Benign prostatic hyperplasia without lower urinary tract symptoms; F41.9 Anxiety disorder, unspecified

== ENCOUNTER → 2024-11-18 09:45 | Outpatient (BNVA) | payer MEDICARE, OTHER, SELFPAY | PROVIDERS: PCP Internal Medicine; Visit Provider Internal Medicine | DX: R51.9 Headache, unspecified (principal); I10 Essential (primary) hypertension; R73.01 Impaired fasting glucose; J44.9 Chronic obstructive pulmonary disease, unspecified; I71.40 Abdominal aortic aneurysm, without rupture, unspecified; E55.9 Vitamin D deficiency, unspecified; M51.360 Other intervertebral disc degeneration, lumbar region with discogenic back pain only; M19.91 Primary osteoarthritis, unspecified site; N40.0 Benign prostatic hyperplasia without lower urinary tract symptoms; F41.9 Anxiety disorder, unspecified; E78.00 Pure hypercholesterolemia, unspecified; D64.9 Anemia, unspecified; Z85.01 Personal history of malignant neoplasm of esophagus; Z87.891 Personal history of nicotine dependence | CPT/HCPCS: 96127; 99212 ==

== ENCOUNTER 2025-03-23 08:32 | Outpatient (REF) | payer MEDICARE, OTHER, SELFPAY ==
--- OUTSIDE RECORDS SUMMARY | 2025-03-22 11:02 | XMS_ITS | Encounter Summary ---
Author Name [facility] [place] [facility] [place] [facility] [place] Address [address] [place] [address] Care Team Providers Care Humanities Instructor Name Role Phone VIPUL SLADE Primary Care [...] PART A Sep 10, 2008 PART A [id number] CAITLYN LAZO ERT PATIENT MEDICARE (WNR) MEDICARE (M) PART B Sep 10, 2008 PART B [id number] [phone] CAITLYN LAZO ERT PATIENT MEDICARE (WNR) MEDICARE (M) PART A Sep 10, 2008 PART A [id number] CAITLYN LAZO ERT PATIENT MEDICARE (WNR) MEDICARE (M) PART B Sep 10, 2008 PART B [id number] CAITLYN LAZO ERT PATIENT FOR LIFE TFL* Nov 25, 2012 [id number] CAITLYN LAZO ERT PATIENT Selected Encounter This section includes the information on record at [place] for the Encounter. Date/Time Encounter Type Encounter Description Reason Pro vider Source Mar 22, 2025 03:02 PM Outpatient Encounter ADMIN PAT ACTIVTIES (MASNONCT) IHE Encounter Template Text not used by [place] Social History: Smoking Status (Most current) and Tobacco Use (All prior to encounter date) This section includes the most current, and the historical, smoking and tobacco- related health factors from the [place] facility where the Encounter took place. Current Smoking Status This section includes the most current smoking, or tobacco-related health factor, from the [place] facility where the Encounter took place. Date/Time Current Smoking Status Comment Facil ity Nov 19, 2023 09:01 AM [facility] Tobacco Use History This section includes a history of the smoking, or tobacco-related health factors, that were collected on or before the date of the Encounter. The data comes from the [place] facility where the Encounter took place. Date/Time Smoking Status/Tobacco Use Comment F acility Nov 19, 2023 09:01 AM [place]-TOBAC[place] QUIT 15 YRS [place] MORE [place] [facility] Nov 06, 2020 03:58 PM VA-TOBACCO FORMER USER [place] [facility] Nov 06, 2020 03:58 PM VA-TOBACCO QUIT 15 YRS OR MORE [place] [facility] Encounter Notes: All associated encounter notes This section contains the clinical notes associated to the Encounter. Date/Time Encounter Note(s) Provider Source Mar 22, 2025 03:02 PM ADMINISTRATIVE NOT E: LOCAL TITLE: CCC: SCHEDULING ADMINISTRATION STANDARD TITLE: ADMINISTRATIVE NOTE DATE OF NOTE: MAR 22, 2025@15:02 ENTRY DATE: MAR 22, 2025@15:02:29 AUTHOR: LITA EUGENE EXP COSIGNER: URGENCY: STATUS: COMPLETED Patient stated he was returning a call to the primary care team. Patient requested the call back go to [phone]. Please assist /bakari/ LITA OSHEA [facility] Signed: 03/22/2025 15:03 Receipt Acknowledged By: 03/22/2025 16:16 /bakari/ RAMIRO RIGGS LPN PACT 10 for CYNTHIA FOX MAKENNABAIRONHANH 03/22/2025 16:10 /bakari/ RAMIRO RIGGS LPN PACT 10 [facility]
--- OUTSIDE RECORDS SUMMARY | 2025-03-23 08:48 | XMS_ITS | Clinical Summary ---
Author Organization [facility] Address [address] [place] [address] Phone Care Team Providers Care Animal Technician Name Role Phone Sergio Ballesteros MD Primary [...] Active Problems Problem Noted Date Diagnosed Date History of esophageal cancer 11/18/2024 Assessment & Plan (11/18/2024 5:20 PM EDT): 77-year-old male who is s/p an [place] esophagectomy in 2017 for an adenocarcinoma of the distal esophagus (T3, N0, M0) with neoadjuvant chemotherapy prior to surgery. His most recent chest, abdomen and pelvic CT scan with IV contrast shows no evidence of metastatic disease. 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 CT Scan [address] [place] [address] Status post endovascular aneurysm repair (EVAR); Type II endoleak of aortic graft Discharge Disposition: Home or Self Care from Last 3 Months Surgical History Surgery Date Site/Laterality Comments OTHER SURGICAL HISTORY 05/26/2019 PROCEDURE: ---- OTHER ----; COMMENT: Endovascular Aortic repair OTHER SURGICAL HISTORY 02/03/2022 PROCEDURE: ---- OTHER ----; COMMENT: Aorta Aneurysm Medical History Medical History Date Comments Essential (primary) hypertension DX:Essential (primary) hypertension Hypercholesteremia DX:Hyperchole steremia Anxiety disorder DX:Anxiety diso rder Esophageal cancer ([facility] V24, [facility] V28) DX:Esophageal cancer ([facility]) Social History Tobacco Use Types Packs/Day Years [...] Orientation Straight 06/08/2024 10 :51 AM EDT Travel History Travel Start Travel End [place] 03/06/2025 03/18/2025 Obstetrics History Last Filed Vital Signs Vital Sign Reading Time Taken Comments Blood Pressure 130/60 12/19/2024 8:39 AM EDT Pulse 72 12/19/2024 8:39 AM EDT Temperature 37 C (98.6 F) 11/16/2024 1:49 PM EDT Respiratory Rate 16 12/19/2024 8:39 AM EDT Oxygen Saturation 98% 11/16/2024 1:49 PM EDT Inhaled Oxygen Concentration - - Weight 66.7 kg (147 lb) 12/19/2024 8:39 AM EDT Height 175.3 cm (5' 9 ) 12/19/2024 8:39 AM EDT Body Mass Index 21.71 12/19/2024 8:39 AM EDT Plan of Treatment Upcoming Encounters Date Type Department Care Team (Late st Contact Info) Description 03/24/2025 8:30 AM EDT Telemedicine Vascular Surgery - [place] [address] [facility] [address] [place] [address] Cedric Durham MD [address] [facility] [address] [place] [address] Health Maintenance Due Date Last Done Comments Hepatitis B Vaccines (2 of 3 - 19+ 3-dose series) 05/11/2014 04/13/2014 RSV Immunization Adult Patients (1 - 1-dose 75+ series) 10/08/2018 COVID-19 Vaccine (3 - Moderna risk series) 11/06/2020 2020, 09/12/2020 Cholesterol Screening (Lipid Panel) 07/12/2022 Falls Risk Assessment 07/12/2022 Medicare Annual Wellness Visit 07/12/2022 Social Influencers of Health Screening 07/12/2022 Depression Screening 08/10/2024 Influenza Vaccine (#1) 2025 , 06/01/2021, 05/15/2021, Additional history exists Hypertension/CHF/CAD Annual BMP Blood Test 11/10/2025 11/10/2024 DTaP,Tdap,and Td Vaccines (3 - Td or Tdap) 05/25/2032 05/25/2022, 05/08/2016 Pneumococcal Vaccine: 50+ Years Completed 04/24/2018, 05/20/2016, 04/30/2015 Zoster Vaccines Completed 05/06/2018, 04/10, 02/23/2018, Additional history exists HIB Vaccines Aged Out [...] Name Priority Date/Time Associated Diagnosis Comments CT ANGIO ABDOMEN PELVIS WO AND/OR W CONTRAST Routine 01/19/2025 8:29 AM EDT Status post endovascular aneurysm repair (EVAR) Type II endoleak of aortic graft CREATININE, SERUM STAT 11/10/2024 4:0 0 PM EDT Preop examination from Last 3 Months or Most Recently Relevant to Health Maintenance Results * CT Angio Abdomen Pelvis wo and/or w Contrast (01/19/2025 8:29 AM EDT) Anatomical Region Laterality Modality Body Computed Tomogra phy 01/19/2025 1:53 PM EDT Impressions 01/19/2025 3:14 PM EDT Infrarenal abdominal aortic aneurysm status post aortoiliac stent graft repair. Increased size of the aneurysm sac compared to 2023, now measuring 7.5 cm as compared to 6.9 cm prior, with endoleak present. -------- FINAL REPORT -------- Dictated By: TA MORENO Dictated Date: 01/19/2025 13:53 ET Assigned Physician: TA MORENO Reviewed and Electronically Signed By: TA MORENO Signed Date: 01/19/2025 15:14 ET Workstation ID: [id number] Transcribed By: Self Edit Transcribed Date: 01/19/2025 15:08 ET Narrative 01/19/2025 3:14 PM EDT PROCEDURE: CTA abdomen/pelvis INDICATION: Abdominal aortic aneurysm TECHNIQUE: Abdomen/pelvis CTA without and with intravenous administration of 90cc ISOVUE 370. Multi planar reformats were created and interpreted. The examination was performed utilizing dose reduction techniques.3-D or MIP images were produced with postprocessing on an independent computer workstation. Total DLP 2003 COMPARISON: 11/10/2024 and 11/20/2023 FINDINGS: The visualized portions of the thoracic aorta are within normal limits. Celiac artery and its major branches are patent. 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 Hepatic artery is patent. SMA and its major branches are patent. Renal arteries are patent. Abdominal aortic aneurysm status post aortobiiliac stent graft repair, similar compared to the prior exam 6. Aneurysm sac measures 7.5 cm as compared to 6.9 cm and 2023. There is endoleak within the aneurysm sac on the delayed images. Ectatic common iliac arteries bilaterally, unchanged. No evidence of aneurysm rupture. The iliac and femoral arteries are patent with visualized. There is collateral filling of the mid and distal JENNIFER. The proximal JENNIFER is not visualized. Esophagectomy with gastric pull-through. Bibasilar scarring and bronchiectasis is similar compared to prior. New peripheral nodularity in the left lower lobe, likely inflammatory. Moderate coronary artery calcifications. Scattered subcentimeter hepatic cysts. Gallbladder and biliary tree are within normal limits. Atrophic pancreatic parenchyma. No pancreatic mass or ductal dilatation. Spleen and adrenal glands are normal. Bilateral renal cysts. 6 mm nonobstructive right renal calculus. Left renal cyst. No ureteral calculi or hydronephrosis. No solid renal mass. No retroperitoneal or mesenteric lymphadenopathy. Portal vein is patent. Mild prostate enlargement. Trabeculated bladder indicative of chronic bladder outlet obstruction. Colonic diverticulosis. Large stool throughout the colon. Normal appendix. No bowel obstruction or wall thickening. No ascites, fluid collection, or free intraperitoneal air. No hernia or superficial soft tissue mass. Chronic bilateral L5 pars defects with some healing on the left. Degenerative changes seen throughout the bones. No acute fracture. Procedure Note Ta Moreno MD - 01/19/2025 PROCEDURE: CTA abdomen/pelvis INDICATION: Abdominal aortic aneurysm TECHNIQUE: Abdomen/pelvis CTA without and with intravenous administrationof 90cc ISOVUE 370. Multi planar reformats were created and interpreted.The examination was performed utilizing dose reduction techniques.3-D orMIP images were produced with postprocessing on an independent computerworkstation. Total DLP 2003 COMPARISON: 11/10/2024 and 11/20/2023 FINDINGS: The visualized portions of the thoracic aorta are within normal limits.Celiac artery and its major branches are patent. Chronic proximal splenicartery short segment dissection is unchanged, without significantnarrowing of the vessel lumen. Hepatic artery is patent. SMA and itsmajor branches are patent. Renal arteries are patent. Abdominal aortic aneurysm status post aortobiiliac stent graft repair,similar compared to the prior exam 6. Aneurysm sac measures 7.5 cm ascompared to 6.9 cm and 2023. There is endoleak within the aneurysm sac onthe delayed images. Ectatic common iliac arteries bilaterally,unchanged. No evidence of aneurysm rupture. The iliac and femoral arteries arepatent with visualized. There is collateral filling of the mid and distalIMA. The proximal JENNIFER is not visualized. Esophagectomy with gastric pull-through. Bibasilar scarring andbronchiectasis is similar compared to prior. New peripheral nodularity inthe left lower lobe, likely inflammatory. Moderate coronary arterycalcifications. Scattered subcentimeter hepatic cysts. Gallbladder and biliary tree arewithin normal limits. Atrophic pancreatic parenchyma. No pancreatic mass or ductal dilatation.Spleen and adrenal glands are normal. Bilateral renal cysts. 6 mm nonobstructive right renal calculus. Leftrenal cyst. No ureteral calculi or hydronephrosis. No solid renalmass. No retroperitoneal or mesenteric lymphadenopathy. Portal vein is patent. Mild prostate enlargement. Trabeculated bladder indicative of chronicbladder outlet obstruction. Colonic diverticulosis. Large stool throughout the colon. Normalappendix. No bowel obstruction or wall thickening. No ascites, fluidcollection, or free intraperitoneal air. No hernia or superficial soft tissue mass. Chronic bilateral L5 pars defects with some healing on the left.Degenerative changes seen throughout the bones. No acute fracture. IMPRESSION: Infrarenal abdominal aortic aneurysm status post aortoiliac stent graftrepair. Increased size of the aneurysm sac compared to 2023, nowmeasuring 7.5 cm as compared to 6.9 cm prior, with endoleak present. -------- FINAL REPORT -------- Dictated By: TA MORENO Dictated Date: 01/19/2025 13:53 ET Assigned Physician: TA MORENO Reviewed and Electronically Signed By: TA MORENO Signed Date: 01/19/2025 15:14 ET Workstation ID: [id number] Transcribed By: Self Edit Transcribed Date: 01/19/2025 15:08 ET us Cedric Durham MD IMG CT PROCEDURES Final Result * Creatinine (11/10/2024 4:00 PM EDT) Creatinine 0.76 0.70 - 1.30 mg/dL LAB CHEMISTRY METHOD 11/10/2024 5:19 PM EDT [facility] eGFR 90 >=60 mL/min/1. 73m2 LAB CHEMISTRY METHOD 11/10/2024 5:19 PM EDT [facility] Comment:Calculation based on the Chronic Kidney Disease Epidemiology Collaboration (CKD-EPI) equation refit without adjustment for race. Blood Venous blood specimen / Unknown Venipuncture / Unknown 11/10/2024 4:00 PM EDT 11/10/2024 5:19 PM EDT us Ellie Chiang NP LAB BLOOD ORDERABLES Final Result [facility] [address] [place] [address], from Last 3 Months or Most Recently Relevant to Health Maintenance Insurance MEDICARE [facility] Care Teams Animal Technician Relationship Specialty Start Date End Date Sergio Ballesteros MD [address] [place] [address] [address] [place] PCP - General Internal Medicine 10/15/16
[2025-03-23 10:05] LABS: MANUAL DIFF FLAG NO
[2025-03-23 10:08] LABS: Hematocrit 41.6 % (42.0-52.0); Hemoglobin 13.7 g/dl (14.0-18.0); Imm Gran Abs Auto 0.02 X10*3/uL (0.00-0.03); Imm Gran Pct Auto 0.3 % (0.0-0.4); Lymphocytes Absolute Auto 1.1 X10*3/uL (1.2-4.9); Mean Corpuscular HGB Conc 32.9 g/dl (31.0-36.0); Mean Corpuscular Hemoglobin 29.8 pg (27.0-33.0); Mean Corpuscular Volume 90.4 fL (80.0-98.0); NRBC Abs Auto 0.000 X10*3/uL (0.0-0.012); NRBC Pct Auto 0.0 /100WBC (0.0-0.2); Platelet Count 209 X10*3/uL (160-400); Red Blood Count 4.60 X10*6/uL (4.60-5.80); White Blood Count 7.7 X10*3/uL (4.8-10.8)
[2025-03-23 10:21] LABS: Appearance Urine Clear; Glucose Urine UA Negative (Negative); PH 6.5 (5.0-9.0); Specific Gravity - Urine 1.010 (1.005-1.025)
[2025-03-23 10:29] LABS: Alanine Aminotransferase 19 U/L (0-40); Albumin Level 4.0 g/dL (3.5-5.0); Alkaline Phosphatase 62 U/L (39-117); Anion Gap 11 (12-20); Aspartate Amino Transferase 24 U/L (5-37); Blood Urea Nitrogen 9 mg/dL (9-16); Calcium 8.9 mg/dL (8.4-10.2); Carbon Dioxide 27 mmol/L (22-29); Chloride 106 mmol/L (96-108); Cholesterol 128 mg/dL (<200); Estimated Glomerular Filt Rate > 60; HDL Cholesterol 47 mg/dL (>40); Potassium 4.0 mmol/L (3.3-5.1); Sodium 140 mmol/L (135-145); Total Protein 6.2 g/dL (6.5-8.0); Triglycerides 64 mg/dL (<150)
[2025-03-23 10:31] LABS: Hemoglobin A1C 137.3053 umol/L; Total Hemoglobin (HGBA1C) 3652.3452 umol/L
== END 2025-03-23 08:33 | disposition home or self-care (01) ==
LOC: HO.HMGCLDS 08:32
PROVIDERS: PCP Internal Medicine; Visit Provider Internal Medicine
DX: R30.0 Dysuria (principal); E78.00 Pure hypercholesterolemia, unspecified; D64.9 Anemia, unspecified; R73.01 Impaired fasting glucose
CPT/HCPCS: 36415; 80053; 80061; 81003; 83036; 84443; 85025

== ENCOUNTER 2025-03-28 09:41 | Outpatient (AMB) | payer MEDICARE, OTHER, SELFPAY ==
--- OUTSIDE RECORDS SUMMARY | 2025-03-24 09:30 | XMS_ITS | Encounter Summary ---
[facility] Organization [facility] Address [address] [place] [address] Care Team Providers Care Manager Environmental Health And Safety Name Role Phone Sergio Ballesteros MD Primary Care Provider Encounter Details Date Type Department Care Team (Late st Contact Info) Description 03/24/2025 9:30 AM EDT Telemedicine Vascular Surgery - [place] [address] [place] [address] Willie Dumont MD [address] [place] [address] Status post endovascular aneurysm repair (EVAR) (Primary Dx); Type II endoleak of aortic graft Social History Tobacco Use Types Packs/Day Years [...] EDT Travel History Travel Start Travel End [place] 03/06/2025 03/18/2025 documented as of this encounter Progress Notes * Willie Dumont MD - 03/24/2025 9:30 AM EDT Images from the original note were not included. PATIENT: Aleja Lazo ENCOUNTER: 03/24/2025 EMRN: [id number] : 1945 PCP: Sergio Ballesteros MD CHIEF COMPLAINT: No chief complaint on file. Patient opted for an audio-only visit because no video telehealth. I ensured compliance with state and federal regulations by utilizing audio only telecommunication technology. Through verbal confirmation, I verified the patient's identity and provided information on telephonic delivery of care, HIPAA privacy, and the risks of communicating over the phone. The patient acknowledged the limitations of treatment via telephone and consented to the audio visit. They also confirmed their comfort in a quiet and private location to discuss their health freely. The patient was informed that the visit would be submitted to their insurance, and any applicable co-pay ordeductible would be their responsibility. Additionally, if the patient is limited Gabonese proficient , deaf, or hard of hearing, speech impaired, or has another disability which impairs their ability to communicate, the services of a qualified dinkey engine operator will be provided during the visit. Patients Location: Home Provider Location: Office (if working from home) Total Time: 24 minutes HPI: This is a 79 y.o. male who presents for abdominal aortic aneurysm. Patient is status post endovascular aortic repair at [facility] by Dr. Carr on 05/26/2019 for a asymptomatic 5.3 cm aneurysm. Postoperative course was uncomplicated. Patient has a complex surgical history including [place] esophagectomy and subsequent robotic assisted ventral hernia repair. In November 2021, patient had a CTA for f/u of EVAR which revealed interval enlargement of the aneurysm measuring up to 6.4 cm, increased from 5.8 cm, secondary to type II endoleak from the inferior mesenteric artery. Patient underwent laparoscopic ligation of JENNIFER by Dr. Maciel on 02/03/2022. Intraoperatively, intravenous ICG was given during the case with clamping of the JENNIFER to confirm correct level of ligation. No filling of the aneurysm sac could be identified. LigaSure was used to ligated JENNIFER and 2 hemoclips were further placed. Near infrared illumination of the descending and sigmoid colon showed good perfusion. He has undergone serial follow-up CTA abdomen and pelvis. See findings below. He returns today for f/u of updated CTA abdomen/pelvis See results reviewed below. Patient has persistent type II endoleak with sac size growth. He currently has no concerns or complaints. Denies any back or abdominal pain. Just returned from a trip in [place] where he walked over 10,000 steps per day. He quit smoking in 1991. He takes a statin daily. No antiplatelet. PAST MEDICAL HISTORY: (reviewed and unchanged) Patient Active Problem List Diagnosis Abdominal aortic aneurysm (AAA) without rupture ([facility] V24) Type IIa endoleak of aortic graft History of esophageal cancer PAST SURGICAL HISTORY: (reviewed and unchanged) Past Surgical History: Procedure Laterality Date OTHER SURGICAL HISTORY 05/26/2019 PROCEDURE: ---- OTHER ----; COMMENT: Endovascular Aortic repair OTHER SURGICAL HISTORY 02/03/2022 PROCEDURE: ---- OTHER ----; COMMENT: Aorta Aneurysm MEDICATIONS: (reviewed, flow sheet updated) No outpatient medications have been marked as taking for the 03/24/25 encounter (Telemedicine) with Willie Dumont MD. SOCIAL HISTORY: Social History Tobacco Use Smoking status: Former Types: Cigarettes Start date: 01/22/1992 Smokeless tobacco: Former Substance Use Topics Alcohol use: Yes Drug use: Not Currently Types: Marijuana/Cannabis FAMILY HISTORY: No family history on file. ALLERGIES: (reviewed, flow sheet updated) No Known Allergies ROS: GENERAL: No malaise, significant weight loss or fever NECK: No lumps, goiter, pain or significant neck swelling RESPIRATORY: No cough, wheezing or shortness of breath CARDIAC: No chest pain or palpitations GI: No abdominal discomfort MUSCULOSKELETAL: SEE HPI SKIN: No lesions, rash or itching NEURO: No persistent headache, syncope, seizures, weakness or numbness VASCULAR: SEE HPI DIAGNOSTIC TESTING: Aleja Lazo Procedures: CT Angio Abdomen Pelvis wo and/or w Contrast Accession Number: [id number] Date of Study: 01/19/25 Ordering Provider: Willie Dumont MD Clinical Indications: AAA, surveillance [place] Physicians Performing Staff Radiology: Tima Garnett MD Tech: Yolande Staton Public Relations Analyst: Malathi Chen Patient Information Patient Name Aleja Lazo Legal Sex Male (79 y.o.) PACS Images Show images for CT Angio Abdomen Pelvis wo and/or w Contrast Diagnosis Priority: Routine Status post endovascular aneurysm repair (EVAR) [Z98.890, Z86.79 (ICD-10-CM)]; Type II endoleak of aortic graft [I97.89 (ICD-10-CM)] Performing Physician Performing Physician/Midlevel: None Interpretation Summary PROCEDURE: CTA abdomen/pelvis INDICATION: Abdominal aortic aneurysm TECHNIQUE: Abdomen/pelvis CTA without and with intravenous administration of 90cc ISOVUE 370. Multiplanar reformats were created and interpreted. The examination was performed utilizing dose reduction techniques.3-D or MIP images were produced with postprocessing on an independent computer workstation. Total DLP 2003 COMPARISON: 11/10/2024 and 11/20/2023 FINDINGS: The visualized portions of the thoracic aorta are within normal limits. Celiac artery and its majorbranches are patent. 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 Hepatic artery is patent. SMA and its major branches arepatent. Renal arteries are patent. Abdominal aortic aneurysm [...] present. -------- FINAL REPORT -------- Dictated By: TIMA GARNETT Dictated Date: 01/19/2025 13:53 ET Assigned Physician: TIMA GARNETT Reviewed and Electronically Signed By: TIMA GARNETT Signed Date: 01/19/2025 15:14 ET Workstation ID: [id number] Transcribed By: Self Edit Transcribed Date: 01/19/2025 15:[address] Chest/Abdomen/Pelvis w Contrast ( (Order [id number]) Status: Final result PACS Images Show images for CT Chest/Abdomen/Pelvis w Contrast Study Result Narrative & Impression INDICATION: history of esophageal cancer. Surveillance. CT [...] by: Alec Silver MD on 11/10/2024 19:01:25 [facility] Diagnostic Imaging Department [address] [place] [address] Patient: ALEJA LAZO /Age/Sex: 1945 - 78 - M Unit#: [id number] Location/Status: SPDICAT/REG CLI Mnemonic/Ordering Site: CTABDPELW/SPCT Ordering Physician: PREET RENTERIA MD CT Abdomen & Pelvis W Cont - 11/20/23 - 1525 Report Status:Signed PROCEDURE: Chest, abdomen, pelvis CT INDICATION: HX ESOPHAGEAL CA; TECHNIQUE: Chest, abdomen, pelvis CT with intravenous administration of 90cc ISOVUE-370. Multi planar reformats were created and interpreted. The examination was performed utilizing dose reduction techniques. COMPARISON: 11/20/2022 FINDINGS: Chest: Central airways are patent. Emphysema. Bibasilar atelectasis. No suspicious pulmonary nodules. No pleural effusion or pneumothorax. Thyroid is normal. No mediastinal or hilar lymphadenopathy. Esophagectomy with gastric pull-through. Cardiac chambers are normal in size. No pericardial effusion. Mild coronary artery calcifications.No central pulmonary arterial emboli. Thoracic aorta measures 3.8 cm at the level of the right pulmonary artery, unchanged. No axillary adenopathy or soft tissue mass. No suspicious lytic or blastic lesions. Bones are normal for age. Abdomen/pelvis: Subcentimeter hepatic cysts are similar compared to prior. No new or suspicious liver lesions. No cholelithiasis or biliary duct dilatation. Atrophic pancreas. No pancreatic mass or ductal dilatation. Spleen and adrenal glands are normal. Left renal cysts. Unchanged nonobstructive right renal calculi measuring up to 6 mm. No ureteral calculi or hydronephrosis. No solid renal mass. Portal vein is patent. Infrarenal abdominal aortic aneurysm repair with aortoiliac stent graft. Abdominal aorta aneurysm sac measures up to 6.7 cm, similar compared to prior. Endoleak is again noted. Enlarged prostate with median lobe hypertrophy. Bladder is normal. Colonic diverticulosis. No bowel obstruction or wall thickening. Normal appendix. No ascites, abscess, or free air. No significant hernias or inguinal lymphadenopathy. Degenerative changes seen throughout the bones.Chronic bilateral L5 pars defects with mild anterolisthesis at L5-S1. No suspicious lytic or blastic lesions. IMPRESSION: Stable exam. Esophagectomy with gastric pull-through. No recurrent or metastatic disease in the chest, abdomen, or pelvis. Dictating Physician: TIMA GARNETT MD Electronically Signed by: TIMA GARNETT MD Dic Date/Time: 11/21/23 1402 Sign date/Time: 11/21/23 [id number] [facility] Diagnostic Imaging Department [address] [place] [address] Patient: ALEJA LAZO Bren ConnorB./Age/Sex: 1945 - 77 - M Unit#: [id number] Location/Status: SPDICAT/REG CLI [facility]emonic[facility] Ordering Physician: WILLIE DUMONT MD CT Ang Abd and Pel W WO or W - 03/20/23915 Report Status:Signed HISTORY: AAA S/P EVAR. Technique: CTA of the abdomen and pelvis In addition to axial images, sagittal and coronal reformatted images were obtained. From the original axial multidetector data set, 3-D surface rendering was performed on an independent AppLayer workstation by the cytotechnologist/histotechnologist. COMPARISON: 09/03/2022, 01/29/2019 FINDINGS: Vascular: Endograft extending from the levels of the renal arteries into the common iliac arteries.The excluded aneurysm sac measures 5.2 x 6.4 cm, unchanged in size and measured in similar technique. Unchanged type II endoleak extending from the right third lumbar artery. The celiac, SMA, and renal arteries are patent. Occlusion of the JENNIFER. Question thrombus in the splenic artery, unchanged dating back to 2018. LOWER THORAX: Atelectasis and bronchiectasis in the lung bases. HEPATOBILIARY: No focal liver lesions. No cholelithiasis or biliary duct dilatation. SPLEEN: No splenomegaly. PANCREAS: No focal mass or ductal dilatation. ADRENALS: No nodules. KIDNEYS/URETERS: No hydronephrosis, stones, or solid mass. PELVIC ORGANS/BLADDER: Enlarged prostate with circumferential bladder wall thickening. GI TRACT: No bowel distention or wall thickening. Postsurgical changes of esophagectomy. Diverticulosis without diverticulitis. PERITONEUM / RETROPERITONEUM: No ascites or free air. No retroperitoneal lymphadenopathy. BONES AND SOFT TISSUES: No acute abnormality. IMPRESSION: Unchanged size of the excluded aneurysm with unchanged appearance of the type II endoleak. Dictating Physician: JESSICA ROBERTS MD Electronically Signed by: JESSICA ROBERTS MD Dic Date/Time: 03/26/23 0907 Sign date/Time: 03/26/23 [id number] [facility] Diagnostic Imaging Department [address] [place] [address] Patient: CLIFTONALEJA Bren ConnorB./Age/Sex: 1945 - 76 - M Unit#: [id number] Location/Status: SPDICAT/REG CLI Mnemonic/Ordering Site: [facility] Ordering Physician: WILLIE DUMONT MD CT Ang Abd and Pel W WO or W - 09/03/22 - 0835 INDICATION: Abdominal aortic aneurysm status post endovascular stent graft placement FINDINGS: CTA of the abdomen and pelvis obtained utilizing aortic stent graft protocol with a totalof 90 cc of Isovue-370 administered intravenously without incident. 3D multiplanar reconstructions performed on a computer workstation. Scanner: [id number] 64 slice VCT Dose reduction technique: ASIR (Adaptive statistical iterative reconstruction) and/or AEC (automated exposure control) Dose: total exam DLP 2469 mGY per cm COMPARISON: CTA of the abdomen and pelvis from March 17, 2022. Persistent endoleak again noted on arterial phase imaging with aneurysm sac measuring 6.7 cm x 4.8 cm axially (series 7 image 88). This measurement is unchanged from the prior study (6.6 cm x 4.8 cm also on series 7 image 88 from March 17, 2022). Type II endoleak is noted from the right third lumbar artery. Please note there are 6 nonrib-bearing vertebral bodies with lumbarization of S1. Interval occlusion of the inferior mesenteric artery before March 17, [address] scan ofthe abdomen and pelvis from November 20, 2021. Bony structures are otherwise unremarkable for the patient's age. Postoperative changes again consistent with esophagectomy and catheter pulled the procedure. Lung bases are otherwise clear. Small and large bowel loops are otherwise unremarkable. No free air or free fluid. Liver, spleen, pancreas, gallbladder, adrenal glands and kidneys are unchanged. Widely patent celiac access and superior mesenteric artery. Widely patent main renal artery with small accessory artery to the upper pole. Widely patent main left renal artery with early branching. Widely patent aortic and iliac components of stent graft. Patent bilateral internal and external iliac arteries. IMPRESSION: Persistent type II endoleak from right third lumbar artery without significant change in size of aneurysm sac. Dictating Physician: LAMONTE QUINN MD Electronically Signed by: LAMONTE QUINN MD Dic Date/Time: 09/03/22 1700 Sign date/Time: 09/03/22 [id number] I independently reviewed the studies along with the images. ASSESSMENT: 1. Status post endovascular aneurysm repair (EVAR) 2. Type II endoleak of aortic graft PLAN: 79 y.o. male with AAA status post endovascular aortic repair with persistent type II endoleak and status post ligation of JENNIFER by Dr. Maciel on 02/03/2022. Intraoperative intravenous ICG was performed. CTA appears to have good proximal and distal seal zones. Official read shows growth of 7.6 cm of maximal diameter. Will perform 3D remodeling with DoseMe of the CTAs from 09/03/2022, 03/20/2023 11/21/2023 and 01/19/2025 with comparison of sac size to be performed. We will then follow the patient up in 2 weeks with audio visit. Patient was informed to follow-up immediately and seek medical attention if he develops sudden onset of back or abdominal pain. Patient's imaging results and case reviewed with patient. Patient was counseled on risk factor modification. We discussed the natural pathophysiology of aneurysms and endoleaks. 23 minutes spent on patient encounter including time spent with patient, chart review, review of imaging/diagnostic studies, all necessary communications and documentation. * Layton Reynoso MA - 03/24/2025 8:30 AM EDT Images from the original note were not included. Aleja Lazo Procedures: CT Angio Abdomen Pelvis wo and/or w Contrast Accession Number: [id number] Date of Study: 01/19/25 Ordering Provider: Willie Dumont MD Clinical Indications: AAA, surveillance [place] Physicians Performing Staff Radiology: Tima Garnett MD Tech: Yolande Staton Public Relations Analyst: Malathi Chen Patient Information Patient Name Aleja Lazo Legal Sex Male (79 y.o.) PACS Images Show images for CT Angio Abdomen Pelvis wo and/or w Contrast Diagnosis Priority: Routine Status post endovascular aneurysm repair (EVAR) [Z98.890, Z86.79 (ICD-10-CM)]; Type II endoleak of aortic graft [I97.89 (ICD-10-CM)] Performing Physician Performing Physician/Midlevel: None Interpretation Summary PROCEDURE: CTA abdomen/pelvis INDICATION: Abdominal aortic aneurysm TECHNIQUE: Abdomen/pelvis CTA without and with intravenous administration of 90cc ISOVUE 370. Multiplanar reformats were created and interpreted. The examination was performed utilizing dose reduction techniques.3-D or MIP images were produced with postprocessing on an independent computer workstation. Total DLP 2003 COMPARISON: 11/10/2024 and 11/20/2023 FINDINGS: The visualized portions of the thoracic aorta are within normal limits. Celiac artery and its majorbranches are patent. 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 Hepatic artery is patent. SMA and its major branches arepatent. Renal arteries are patent. Abdominal aortic aneurysm [...] present. -------- FINAL REPORT -------- Dictated By: TIMA GARNETT Dictated Date: 01/19/2025 13:53 ET Assigned Physician: TIMA GARNETT Reviewed and Electronically Signed By: TIMA GARNETT Signed Date: 01/19/2025 15:14 ET Workstation ID: [id number] Transcribed By: Self Edit Transcribed Date: 01/19/2025 15:08 ET documented in this encounter Plan of Treatment Upcoming Encounters Date Type Department Care Team (Late st Contact Info) Description 04/14/2025 10:00 AM EDT Telemedicine Vascular Surgery - [place] [address] [place] [address] Willie Dumont MD [address] [place] [address] documented as of this encounter Visit Diagnoses Diagnosis Status post endovascular aneurysm repair (EVAR)- Primary Type II endoleak of aortic graft documented in this encounter Care Teams Manager Environmental Health And Safety Relationship Specialty Start Date End Date Sergio Ballesteros MD [address] [place] [address] [address] [place], [place] PCP - General Internal Medicine 10/15/16 documented as of this encounter
[2025-03-28 09:56] VITALS: BP 110/64; PULSE 70; O2SAT 97; BMI 21.3
--- NOTE | 2025-03-28 09:56 | MHC.PC.OV ---
Vital Signs 03/28/25 09:56 Height 5 ft 9 in Weight 144 lb 2 oz BMI 21.3 BP 110/64 Blood Pressure Location Lt brachial Position Sitting Pulse 70 Pulse Source Pulse Oximeter Pulse Oximetry (%) 97 Oxygen Delivery Method Room Air Intake Visit Reasons: 4 Months f/u Medicine Aide Required: No Accompanied by: Self / Same As Patient Allergies lactose (LACTOSE) Allergy (Unknown, Verified 03/28/25 10:22) INTOLERANT Medication List - Last Reconciled 03/28/25 by Sergio Ballesteros MD albuterol sulfate 90 mcg/actuation (ProAir HFA) 2 inhalations inhalation Q6H PRN azithromycin take 500 mg today (day 1), then 250 mg for 4 days (days 2-5) PO -- to take when needed for respiratory infections cetirizine (Zyrtec) 10 mg PO DAILY [CHAIR LIFT As directed] cholecalciferol (vitamin D3) (Vitamin D3) 50 mcg PO DAILY citalopram 10 mg PO DAILY finasteride 1 tab PO DAILY losartan 25 mg PO DAILY melatonin 10 mg PO BEDTIME PRN multivitamin 1 tab PO DAILY omeprazole 40 mg PO DAILY simvastatin 20 mg PO BEDTIME tamsulosin 1 cap PO DAILY tiotropium-olodaterol 2.5-2.5 mcg/actuation (Stiolto Respimat) 2 puffs inhalation DAILY Tobacco use date assessed: 03/28/25 Fall risk assessment: No Falls in past year Last assessed Fall Risk: 03/28/25 Dental Screening Dental Screen Date: 03/28/25 Did you have a dental visit in the last 12 months?: No Did you have a dental problem in the last 6 months where you did not have access to dental care?: No Was dental information given to patient?: No HPI 4 Months f/u HPI Details Patient comes in today for his follow up visit States that he feels okay He denies any headaches or dizziness Denies any chest pains, no increased SOB No nausea/vomiting, no abdominal pain No change in bowel habits noted He had his follow-up labs done a few days ago - to discuss his results [facility] Medical History COVID-19 vaccine administered Overweight (BMI 25.0-29.9) Anxiety History of esophageal cancer Vitamin D deficiency Lumbar degenerative disc disease Osteoarthritis Impaired fasting glucose AAA (abdominal aortic aneurysm) without rupture Benign essential hypertension Pure hypercholesterolemia Esophageal adenocarcinoma Pneumonia Aneurysm TIA (transient ischemic attack) COPD (chronic obstructive pulmonary disease) BPH (benign prostatic hyperplasia) Surgical History History of shoulder surgery History of hip surgery History of bunionectomy of right great toe (~01/26/13) Hx of colonoscopy History of bunionectomy of left great toe (~02/2016) History of colonoscopy History of esophagectomy (~10/15/16) History of incisional hernia repair S/P AAA repair (~05/26/19) Family History Daughter Breast cancer Father Substance abuse Social History Household Members: Spouse [facility] Alcohol intake: current Alcohol intake frequency: holidays/special occasions only Alcohol type: beer Patient Tobacco Use Status: Former Tobacco user Tobacco use type: Cigarette Cigarette Packs Per Day: 2 e-Cigarette/Vaping Use: Never Used Second Hand Smoke Exposure: Yes service: Yes ([employer] and [email or web address]) Current occupational status: retired Cognitive needs: No Hearing needs: Yes Vision needs: Yes (glasses) Questionnaire PHQ-9 Over the last 2 weeks, how often have you been bothered by any of the following problems? 1. Little interest or pleasure in doing things: not at all 2. Feeling down, depressed, or hopeless: not at all 3. Trouble falling or staying asleep, or sleeping too much: not at all 4. Feeling tired or having little energy: not at all 5. Poor appetite or overeating: not at all 6. Feeling bad about yourself - or that you are a failure or have let yourself or your family down: not at all 7. Trouble concentrating on things, such as reading the newspaper or watching television: not at all 8. Moving or speaking so slowly that other people could have noticed. Or the opposite - being so fidgety or restless that you have been moving around a lot more than usual: not at all 9. Thoughts that you would be better off or of hurting yourself in some way: not at all Total score: 0 Depression Screening Interpretation: Negative Depression Screening Done: Yes [id number] - PHQ-9 Billing: Yes Source: Developed by Drs. David Chakraborty, Veronica Allan, Demetrio Roberts and colleagues, with an educational crys from [employer]. Thrive Questionnaire Date Thrive assessed: 03/28/25 I am a: Patient What is your living situation today?: I have a steady place to live Within the past 12 months, did the food you bought not last and you didn't have the money to get more?: Never true Within the past 12 months, did you worry whether your food would run out before you got money to buy more?: Never true Do you have trouble paying for medicines?: No Do you have trouble getting transportation to medical appointments?: No Do you have trouble paying your heating and electricity bill?: No Do you have trouble taking care of your child, family member or friend?: No Do you have trouble with day-to-day activities such as bathing, preparing meals, shopping, managing finances, etc.?: No Are you currently unemployed and looking for a job?: No Are you interested in more education?: No Please select the resources that you would like help with: None Currently or been in a relationship where the following occur: No concerns reported THRIVE Score: 0 AUDIT C Alcohol Use Questionnaire (AUDIT-C) 1. How often do you have a drink containing alcohol?: 2-3 times a week 2. How many drinks containing alcohol do you have on a typical day when you are drinking?: 1 or 2 3. How often do you have six or more drinks on one occasion?: Never Total Score: 3 Score Reviewed/Action Taken: Yes SHRUTHI-7 AMB Questionnaire SHRUTHI-7 Date SHRUTHI - 7 assessed: 03/28/25 Feeling nervous, anxious, or on edge: 0 = Not at all Not being able to stop or control worryin = Not at all Worrying too much about different things: 0 = Not at all Trouble relaxin = Not at all Being so restless that it is hard to sit still: 0 = Not at all Becoming easily annoyed or irritable: 0 = Not at all Feeling afraid as if something awful might happen: 0 = Not at all Total SHRUTHI-7 score (0-4 normal; 5-9 mild; 10-14 moderate; 15-21 severe): 0 Source: Developed by Drs. David Chakraborty, Veronica Allan, Demetrio Roberts and colleagues, with an educational crys from [employer]. Review of Systems Const Denies chills, Denies fatigue, Denies fever(s) and Denies headache(s) ENT Denies dysphagia, Denies dizziness, Denies otalgia, Denies headache(s), Denies neck pain, Denies odynophagia and Denies sore throat Card Denies chest pain, Denies palpitations and Reports dyspnea on exertion (very mild, occasionally) Resp Denies chest congestion, Denies cough and Reports dyspnea on exertion (very mild, occasionally) GI Denies abdominal pain, Denies constipation, Denies dysphagia, Denies heartburn, Denies diarrhea, Denies nausea, Denies odynophagia and Denies vomiting Denies difficulty urinating, Denies dysuria, Denies nocturia and Denies urinary frequency Musc Denies back pain, Denies arthralgias and Denies neck pain Skin/Breast Denies rash Neuro Denies dizziness and Denies headache(s) Endo Denies fatigue and Denies palpitations Physical exam (Primary Care) Vital Signs: Last Vital Signs Pulse 70 03/28/25 09:56 BP 110/64 03/28/25 09:56 Pulse Ox 97 03/28/25 09:56 Oxygen Delivery Method Room Air 03/28/25 09:56 BMI result Body Mass Index 21.3 Tobacco/Smoking Status: Tobacco use Status Tobacco use date assessed 03/28/25 03/28/25 09:59 Patient Tobacco Use Status Former Tobacco user 03/28/25 09:59 Tobacco use type Cigarette 03/28/25 09:59 e-Cigarette/Vaping Use Never Used 03/28/25 09:59 PHQ-9: PHQ-9 Score PHQ-9: Total score 0 03/28/25 10:01 Depression Screening Interpretation: Negative Thrive Assessment: Date of Thrive Assessment Date Thrive assessed 03/28/25 03/28/25 09:59 Currently or been in a relationship where the following occur: No concerns reported Const General: no acute distress and alert HENMT Ears: TM's normal bilaterally and EAC's normal Throat: Yes posterior oropharynx normal and Yes tonsils normal (no TP congestion noted) Neck Neck: Yes supple and No lymphadenopathy Thyroid: Thyroid normal Resp Auscultation: clear to auscultation bilaterally, no rales and no wheezes Cardio Rate: regular rate Rhythm: regular rhythm Heart sounds: no murmurs GI Palpation (GI): Soft to palpation and nontender Auscultation: normal bowel sounds General: Yes no CVA tenderness Back/Spine/Pelvis Back: no CVA tenderness Thoracic/Lumbar Spine: lumbar spinal tenderness (mild) Skin Rashes: no rashes Extrem General: Yes no clubbing, cyanosis or edema Results Reviewed Results Reviewed: Laboratory Tests 03/23/25 03/23/25 08:42 08:50 WBC 7.7 Hgb 13.7 L Hct 41.6 L Plt Count 209 Sodium 140 Potassium 4.0 Creatinine 0.80 Estimated GFR > 60 Fasting Glucose 103 H Hemoglobin A1c % 5.6 Calcium 8.9 AST 24 ALT 19 Triglycerides 64 Cholesterol 128 LDL Cholesterol, Calc 69 HDL Cholesterol 47 TSH 0.85 Ur Specific [place] 1.010 Urine Protein Negative Urine Glucose (UA) Negative Urine Blood Negative Urine Nitrite Negative Ur Leukocyte Esterase Negative Coding Level of Care Code Est Pt Level 4 (40377) Diagnoses Pure hypercholesterolemia E78.00 Benign essential hypertension I10 Impaired fasting glucose R73.01 Chronic obstructive pulmonary disease, unspecified COPD type J44.9 COPD type: unspecified COPD Abdominal aortic aneurysm (AAA) without rupture, unspecified part I71.40 Abdominal aorta location: unspecified Vitamin D deficiency E55.9 Degeneration of intervertebral disc of lumbar region with discogenic back pain M51.360 Disc-related pain type: discogenic back pain only Primary osteoarthritis, unspecified site M19.91 Osteoarthritis location: unspecified site Osteoarthritis type: primary History of esophageal cancer Z85.01 Benign prostatic hyperplasia, unspecified whether lower urinary tract symptoms present N40.0 Lower urinary tract symptom presence: unspecified whether lower urinary tract symptoms present Anxiety F41.9 Additional Codes PHQ-9 - 12940 - PHQ-9 Billing: Yes ([id number]) Assessment & Plan Assessment & Plan (1) Pure hypercholesterolemia: Code(s): E78.00 - Pure hypercholesterolemia, unspecified Category: Medical Plan: Results of his labs done a few days ago reviewed and discussed with patient Reinforced low cholesterol diet Continue Simvastatin 20 mg QD Will recheck his labs and fasting lipids in 4 months for follow-up (2) Benign essential hypertension: Code(s): I10 - Essential (primary) hypertension Category: Medical Plan: Reinforced low-sodium diet - goal is systolic BP of at least 140 mm or less Patient's BP remains very well-controlled Continue Losartan 25 mg QD He is reminded to continue monitoring his blood pressure regularly (3) Impaired fasting glucose: Code(s): R73.01 - Impaired fasting glucose Category: Medical Plan: His HgbA1c remained normal at 5.6% on his recent labs (was also normal at 5.7% a few months ago and when checked a few times in the past) FBS was slightly up at 103 mg/dl on his recent labs Reinforced low calorie diet / exercise as tolerated (4) COPD (chronic obstructive pulmonary disease): Code(s): J44.9 - Chronic obstructive pulmonary disease, unspecified Category: Medical Qualifiers: COPD type: unspecified COPD Qualified Code(s): J44.9 - Chronic obstructive pulmonary disease, unspecified Plan: Controlled Continue Stiolto Respimat 2.5 mcg 2 puffs QD and Albuterol HFA 2 puffs 4 times a day PRN Follow up with pulmonary as scheduled (5) AAA (abdominal aortic aneurysm) without rupture: Comment: S/P AAA repair at [facility] on 01/24/2019 - (+) aortoiliac stent graft over infrarenal AAA Code(s): I71.4 - Abdominal aortic aneurysm, without rupture Category: Medical Qualifiers: Abdominal aorta location: unspecified Qualified Code(s): I71.40 - Abdominal aortic aneurysm, without rupture, unspecified Plan: S/P surgical repair of endoleak over his aortoiliac stent graft on 03/03/[address] Dockery at [facility] States that he has been doing well since with no acute issues and that he recently had repeat imaging studies done at [facility] that came out normal Follow up with vascular surgery as scheduled for continuing management and surveillance (6) Vitamin D deficiency: Code(s): E55.9 - Vitamin D deficiency, unspecified Category: Medical Plan: Continue Vitamin D 2000 units every other day (7) Lumbar degenerative disc disease: Code(s): M51.36 - Other intervertebral disc degeneration, lumbar region Category: Medical Qualifiers: Disc-related pain type: discogenic back pain only Qualified Code(s): M51.360 - Other intervertebral disc degeneration, lumbar region with discogenic back pain only Plan: Reinforced activity and weight lifting restrictions to avoid aggravating his low back pain (8) Osteoarthritis: Code(s): M19.90 - Unspecified osteoarthritis, unspecified site Category: Medical Qualifiers: Osteoarthritis location: unspecified site Osteoarthritis type: primary Qualified Code(s): M19.91 - Primary osteoarthritis, unspecified site Plan: States that his joint pains have been mostly manageable Reinforced regular exercise to help minimize his joint pains and stiffness (9) History of esophageal cancer: Comment: S/P Colin Jani esophagectomy on 10/15/2016 Code(s): Z85.01 - Personal history of malignant neoplasm of esophagus Category: Medical Plan: Continue Omeprazole [address] done a few months ago reportedly showed no evidence of metastatic disease Follow-up with Oncology (Dr. Delarosa) as scheduled for continuing surveillance - he sees Dr. Delarosa just once a year now (10) BPH (benign prostatic hyperplasia): Code(s): N40.0 - Benign prostatic hyperplasia without lower urinary tract symptoms Category: Medical Qualifiers: Lower urinary tract symptom presence: unspecified whether lower urinary tract symptoms present Qualified Code(s): N40.0 - Benign prostatic hyperplasia without lower urinary tract symptoms Plan: Continue Finasteride 5 mg QD and Tamsulosin 0.4 mg QD Follow up with urology as scheduled (11) Anxiety: Code(s): F41.9 - Anxiety disorder, unspecified Category: Medical Plan: Continue Citalopram 10 mg QD Plan Follow-up in 4 months Orders: Orders TSH reflex Free T4 4 Months E78.00 - Pure hypercholesterolemia, unspecified UA CC w/rflx Micro + Cult 4 Months R30.0 - Dysuria Complete Blood Count Auto Diff 4 Months D64.9 - Anemia, unspecified Comprehensive [place]. Panel Fast 4 Months E78.00 - Pure hypercholesterolemia, unspecified Lipid Panel 4 Months E78.00 - Pure hypercholesterolemia, unspecified Hemoglobin A1c 4 Months R73.01 - Impaired fasting glucose
== END 2025-03-28 11:03 | disposition home or self-care (01) ==
LOC: HO.HMCH 09:41
PROVIDERS: PCP Internal Medicine; Visit Provider Internal Medicine
DX: E78.00 Pure hypercholesterolemia, unspecified (principal); I10 Essential (primary) hypertension; R73.01 Impaired fasting glucose; J44.9 Chronic obstructive pulmonary disease, unspecified; I71.40 Abdominal aortic aneurysm, without rupture, unspecified; E55.9 Vitamin D deficiency, unspecified; M51.360 Other intervertebral disc degeneration, lumbar region with discogenic back pain only; M19.91 Primary osteoarthritis, unspecified site; Z85.01 Personal history of malignant neoplasm of esophagus; N40.0 Benign prostatic hyperplasia without lower urinary tract symptoms; F41.9 Anxiety disorder, unspecified

== ENCOUNTER → 2025-03-28 09:41 | Outpatient (BNVA) | payer MEDICARE, OTHER, SELFPAY | PROVIDERS: PCP Internal Medicine; Visit Provider Internal Medicine | DX: E78.00 Pure hypercholesterolemia, unspecified (principal); I10 Essential (primary) hypertension; R73.01 Impaired fasting glucose; J44.9 Chronic obstructive pulmonary disease, unspecified; I71.40 Abdominal aortic aneurysm, without rupture, unspecified; E55.9 Vitamin D deficiency, unspecified; M51.360 Other intervertebral disc degeneration, lumbar region with discogenic back pain only; M19.91 Primary osteoarthritis, unspecified site; N40.0 Benign prostatic hyperplasia without lower urinary tract symptoms; F41.9 Anxiety disorder, unspecified; Z85.01 Personal history of malignant neoplasm of esophagus | CPT/HCPCS: 96127; 99212 ==

== ENCOUNTER 2025-07-31 08:02 | Outpatient (REF) | payer MEDICARE, OTHER, SELFPAY ==
--- OUTSIDE RECORDS SUMMARY | 2025-07-31 08:07 | XMS_ITS | Clinical Summary ---
Author Organization [facility] Address [address] [place] [address] Phone Care Team Providers Care Surveyor Helper Name Role Phone Sergio Ballesteros MD Primary Care Provider [phone] Allergies No known active allergies Medications multivitamin (Multiple Vitamins) tablet 1 (one) time each day. Active OMEPRAZOLE ORAL Take 20 mg by mouth daily. Active ZINC ORAL 1 (one) time each day. Active cetirizine (ZyrTEC) 10 mg tablet Take 1 tablet (10 mg total) by mouth 1 (one) time each day. Active finasteride (PROSCAR) 5 mg tablet Take 1 tablet (5 mg total) by mouth 1 (one) time each day. Active losartan (COZAAR) 25 mg tablet Take 1 tablet (25 mg total) by mouth 1 (one) time each day. Active simvastatin (ZOCOR) 20 mg tablet Take 1 tablet (20 mg total) by mouth at bedtime. Active tamsulosin (FLOMAX) 0.4 mg 24 hr capsule 1 capsule (0.4 mg total) at bedtime. Active tiotropium-olod ateroL (Stiolto Respimat) 2.5-2.5 mcg/actuation mist inhaler 2 puffs 1 (one) time each day. Active albuterol HFA (PROAIR HFA ; PROVENTIL HFA ; VENTOLIN HFA) 90 mcg/actuation inhaler Inhale 2 puffs by mouth every 6 (six) hours if needed for wheezing. Active cholecalciferol (Vitamin D3) 5,000 Units tablet Take 1 tablet (5,000 Units total) by mouth 1 (one) time each day. 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) from Last 3 Months Surgical History Surgery Date Site/Laterality Comments OTHER SURGICAL HISTORY 05/26/2019 PROCEDURE: ---- OTHER ----; COMMENT: Endovascular Aortic repair OTHER SURGICAL HISTORY 02/03/2022 PROCEDURE: ---- OTHER ----; COMMENT: Aorta Aneurysm ABDOMINAL AORTA STENT leaking OTHER SURGICAL HISTORY Left SHOULDER BUNIONECTOMY Bilateral COLONOSCOPY UPPER GASTROINTESTINAL ENDOSCOPY Medical History Medical History Date Comments Essential (primary) hypertension DX:Essential (primary) hypertension Hypercholesteremia DX:Hyperchole steremia Anxiety disorder DX:Anxiety diso rder Esophageal cancer ([facility] V 24, [facility] V28) DX:Esophageal cancer (HCC) Adverse effect of anesthesia Bernard d to wake after 9 1/2 hr sx 7 rs ago Adverse effect of anesthesia HL (hearing loss) Diverticulosis History of transfusion Arthritis Joint pain Emphysema lung ([facility] V24, [facility] V28) Left-sided tinnitus GERD (gastroesophageal reflux disease) Social History Tobacco Use Types Packs/Day Years Used Date Smoking Tobacco: Former Cigarettes 33.5 S tarted: 01/22/1992 Smokeless Tobacco: Former Alcohol Use Standard Drinks/Week Comments Yes 0 (1 standard drink = 0.6 oz pur e alcohol) SOCIAL Housing Instability Answer Date Recorde d Are you worried that in the next 2 months you may not have stable housing? No 04/26/2025 Food Access & Nutrition Answer Date Rec orded Do you have access to a vari ety of food including fruits and vegetables? Yes 04/26/2025 Access to Healthcare Answer Date Record ed Within the last 3 months, whit cruz many times did you visit the emergency department for your medical care? 0 04/26/2025 Health Literacy Answer Date Recorded How often do you need to hav e someone help you when you read instructions, pamphlets, or other written material from your doctor or pharmacy? Never 04/26/2025 Caregiver: How often do you need to have someone help you when you read instructions, pamphlets, or other written material from your doctor or pharmacy? Not on file 04/26/2025 Financial Risk Answer Date Recorded How hard is it for you to pa y for the very basics like food, housing, medical care, and air conditioning / heating? Not very hard 04/26/2025 Transportation Answer Date Recorded Has the lack of transportati on kept you from meetings, work, or from getting things needed for daily living? No Has the lack of transportati on kept you from medical appointments or from getting medications? No 04/26/2025 Social Isolation Answer Date Recorded How often do you feel lonely or isolated from th ose around you? Never 04/26/2025 Food Risk Answer Date Recorded Within the past 12 months we worried whether our food would run out before we got money to buy more. Never true 04/26/2025 Within the past 12 months th e food we bought just didn't last and we didn't have money to get more. Never true 04/26/2025 Dependent Care Answer Date Recorded Do you need help finding or paying for care for your loved ones. For example, child protective investigator or elderly care for an older adult? No 04/26/2025 Education Answer Date Recorded Do you think completing more education or training, like finishing a GED, going to college, or learning a trade, would be helpful for you? No 04/26/2025 Employment and Income Answer Date Recor ded During the last four weeks, have you been actively looking for work? No 04/26/2025 Living Situation Answer Date Recorded What is your living situation? Unrecognized valu e 04/26/2025 Interpersonal Safety Answer Date Record ed Physical Abuse Unrecognized value 04/26/2025 Verbal Abuse Unrecognized value 04/26/2025 Sex and Gender Information Value Date Recorded Sex Assigned at Male 06/08/2024 10:51 AM EDT Legal Sex Male 8:47 PM EST Gender Identity Male 06/08/2024 10:51 AM EDT Sexual Orientation Straight 06/08/2024 10 :51 AM EDT Last Filed Vital Signs Vital Sign Reading Time Taken Comments Blood Pressure 100/60 05/24/2025 1:01 PM EDT Pulse 80 05/24/2025 1:01 PM EDT Temperature 36.2 C (97.1 F) 04/27/2025 12:01 PM EDT Respiratory Rate 16 05/24/2025 1:01 PM EDT Oxygen Saturation 100% 04/27/2025 12:01 PM EDT Inhaled Oxygen Concentration - - Weight 63.5 kg (140 lb) 05/24/2025 1:01 PM EDT Height 175.3 cm (5' 9 ) 05/24/2025 1:01 PM EDT Body Mass Index 20.67 05/24/2025 1:01 PM EDT Plan of Treatment Upcoming Encounters Date Type Department Care Team (Late st Contact Info) Description 08/31/2025 9:30 AM EST Office Visit Vascular Surgery - [place] [address] [place] [address] Cedric Durham MD [address] [place] [phone] Health Maintenance Due Date Last Done Comments Hepatitis B Vaccines (2 of 3 - 19+ 3-dose series) 05/11/2014 04/13/2014 RSV Immunization Adult Patients (1 - 1-dose 75+ series) 10/08/2018 COVID-19 Vaccine (3 - Moderna risk series) 11/06/2020 2020, 09/12/2020 Cholesterol Screening (Lipid Panel) 07/12/2022 Medicare Annual Wellness Visit 07/12/2022 Depression Screening 08/10/2024 Influenza Vaccine (#1) 2025 , 06/01/2021, 05/15/2021, Additional history exists Social Influencers of Health Screening 04/26/2026 04/26/2025 Falls Risk Assessment 04/27/2026 04/27/2025 Hypertension/CHF/CAD Annual BMP Blood Test 04/27/2026 04/27/2025, 04/21/2025, 11/10/2024 DTaP,Tdap,and Td Vaccines (3 - Td [...] on patient's age to complete this topic Medical Devices Implanted Type Area Electroslag Welding Machine Operator Device Identifier Shelf Expiration Date Model / Serial / Lot Sealant Fibrin Vistaseal 2ml - [id number] - [id number] Implanted:Qty: 1 on 04/26/2025 by Cedric Durham MD at [facility] Hemostasis N/A: Groin [employer] [id number] 06/26/2026 [facility] / [id number] / [id number] Healthcare Network Consultant Endoanchor Sheree-Fx - Sna - [id number] Implanted:Qty: 1 on 04/26/2025 by Cedric Durham MD at [facility] Internal and External Fixation N/A: Groin [employer] [id number] 09/16/2026 SA-85 / NA / [id number] Guide Endoanchr Sg-64 Aaa 62cm - Sna - [id number] Implanted:Qty: 1 on 04/26/2025 by Cedric Durham MD at [facility] Thoracic AAA Stent Grafts N/A: Groin [employer] [id number] 01/12/2026 SG-64 / NA / [id number] 19 Procedures Procedure Name Priority Date/Time Associated Diagnosis Comments BASIC METABOLIC PANEL Routine 04/27/2025 6:00 AM EDT from Last 3 Months or Most Recently Relevant to Health Maintenance Results * (ABNORMAL) Basic metabolic panel (04/27/2025 6:00 AM EDT) Sodium 139 133 - 145 mmol/L LAB CHEMISTRY METHOD 04/27/2025 7:27 AM EDT [facility] Potassium 4.5 3.5 - 5.5 mmol/L LAB CHEMISTRY METHOD 04/27/2025 7:27 AM EDT [facility] Chloride 104 96 - 110 mmol/L LAB CHEMISTRY METHOD 04/27/2025 7:27 AM EDT [facility] CO2 28 21 - 32 mmol/L LAB CHEMISTRY METHOD 04/27/2025 7:27 AM [facility] Anion Gap 7 3 - 11 LAB CHEMISTRY METHOD 04/27/2025 7:27 AM [facility] Glucose 119(H) 70 - 100 mg/dL LAB CHEMISTRY METHOD 04/27/2025 7:27 AM [facility] BUN 10 5 - 25 mg/dL LAB CHEMISTRY METHOD 04/27/2025 7:27 AM [facility] Creatinine 0.73 0.70 - 1.30 mg/dL LAB CHEMISTRY METHOD 04/27/2025 7:27 AM [facility] eGFR 91 >=60 mL/min/1. 73m2 LAB CHEMISTRY METHOD 04/27/2025 7:27 AM [facility] Comment:Calculation based on the Chronic Kidney Disease Epidemiology Collaboration (CKD-EPI) equation refit without adjustment for race. BUN/Creatinine Ratio 13.7 LAB CHEMISTRY METHOD 04/27/2025 7:27 AM [facility] Calcium 8.5 8.5 - 10.5 mg/dL LAB CHEMISTRY METHOD 04/27/2025 7:27 AM [facility] Blood Venous blood specimen / Unknown Venipuncture / Unknown 04/27/2025 6:00 AM EDT 04/27/2025 6:16 AM EDT us [facility] LAB BLOOD ORDERABLES Final Res ult [facility] [address] [place] [address], from Last 3 Months or Most Recently Relevant to Health Maintenance Insurance MEDICARE [facility] Advance Directives * Full Code - Default (Latest Code Status on File) Date Activated Date Inactivated Comments 04/26/2025 3:12 PM 04/27/2025 2:48 PM This is orde r is used when code status has not been discussed with the patient, or code status is otherwise unknown/unconfirmed To update the patient's code status, place a code status order. Do not modify or discontinue any currently active code status orders. * Full Code - Default Date Activated Date Inactivated Comments 04/26/2025 9:31 AM 04/26/2025 3:12 PM This is orde r is used when code status has not been discussed with the patient, or code status is otherwise unknown/unconfirmed To update the patient's code status, place a code status order. Do not modify or discontinue any currently active code status orders. Care Teams Surveyor Helper Relationship Specialty Start Date End Date Sergio Ballesteros MD [address] [place] [address] [address] RUI Davison PCP - General Internal Medicine 10/15/16
[2025-07-31 10:05] LABS: MANUAL DIFF FLAG NO
[2025-07-31 10:16] LABS: Hematocrit 42.5 % (42.0-52.0); Hemoglobin 13.4 g/dl (14.0-18.0); Imm Gran Abs Auto 0.03 X10*3/uL (0.00-0.03); Imm Gran Pct Auto 0.4 % (0.0-0.4); Lymphocytes Absolute Auto 1.0 X10*3/uL (1.2-4.9); Mean Corpuscular HGB Conc 31.5 g/dl (31.0-36.0); Mean Corpuscular Hemoglobin 28.4 pg (27.0-33.0); Mean Corpuscular Volume 90.0 fL (80.0-98.0); NRBC Abs Auto 0.000 X10*3/uL (0.0-0.012); NRBC Pct Auto 0.0 /100WBC (0.0-0.2); Platelet Count 233 X10*3/uL (160-400); Red Blood Count 4.72 X10*6/uL (4.60-5.80); White Blood Count 7.3 X10*3/uL (4.8-10.8)
[2025-07-31 10:49] LABS: Alanine Aminotransferase 14 U/L (0-40); Albumin Level 3.8 g/dL (3.5-5.0); Alkaline Phosphatase 62 U/L (39-117); Anion Gap 11 (12-20); Aspartate Amino Transferase 20 U/L (5-37); Blood Urea Nitrogen 11 mg/dL (9-16); Calcium 8.9 mg/dL (8.4-10.2); Carbon Dioxide 26 mmol/L (22-29); Chloride 108 mmol/L (96-108); Cholesterol 125 mg/dL (<200); Estimated Glomerular Filt Rate > 60; HDL Cholesterol 44 mg/dL (>40); Potassium 4.5 mmol/L (3.3-5.1); Sodium 140 mmol/L (135-145); Total Protein 5.9 g/dL (6.5-8.0); Triglycerides 73 mg/dL (<150)
[2025-07-31 14:15] LABS: Appearance Urine Clear; Glucose Urine UA Negative (Negative); PH 5.5 (5.0-9.0); Specific Gravity - Urine 1.015 (1.005-1.025)
== END 2025-07-31 08:03 | disposition home or self-care (01) ==
LOC: HO.HMGCLDS 08:02
PROVIDERS: PCP Internal Medicine; Visit Provider Internal Medicine
DX: R30.0 Dysuria (principal); E78.00 Pure hypercholesterolemia, unspecified; R73.01 Impaired fasting glucose; D64.9 Anemia, unspecified
CPT/HCPCS: 36415; 80053; 80061; 81003; 83036; 84443; 85025

== ENCOUNTER 2025-08-08 10:21 | Outpatient (AMB) | payer MEDICARE, OTHER, SELFPAY ==
[2025-08-08 10:37] VITALS: BP 126/74; PULSE 91; O2SAT 98; BMI 20.6
--- NOTE | 2025-08-08 10:37 | A.OFFPC_ITS ---
Vital Signs 08/08/25 10:37 Height 5 ft 9 in Weight 139 lb 8 oz BMI 20.6 BP 126/74 Blood Pressure Location Lt brachial Position Sitting Pulse 91 Pulse Source Pulse Oximeter Pulse Oximetry (%) 98 Oxygen Delivery Method Room Air Intake Visit Reasons: 4mth f/u Reheater Helper Required: No Accompanied by: Self / Same As Patient Allergies lactose (LACTOSE) Allergy (Unknown, Verified 08/08/25 11:12) INTOLERANT Medication List - Last Reconciled 08/08/25 by Sergio Ballesteros MD albuterol sulfate 90 mcg/actuation (ProAir HFA) 2 inhalations inhalation Q6H PRN cetirizine (Zyrtec) 10 mg PO DAILY [CHAIR LIFT As directed] cholecalciferol (vitamin D3) (Vitamin D3) 50 mcg PO DAILY citalopram 10 mg PO DAILY finasteride 1 tab PO DAILY losartan 25 mg PO DAILY melatonin 10 mg PO BEDTIME PRN multivitamin 1 tab PO DAILY omeprazole 40 mg PO DAILY simvastatin 20 mg PO BEDTIME tamsulosin 1 cap PO DAILY tiotropium-olodaterol 2.5-2.5 mcg/actuation (Stiolto Respimat) 2 puffs inhalation DAILY Tobacco use date assessed: 08/08/25 Last assessed Fall Risk: 08/08/25 Dental Screening Dental Screen Date: 08/08/25 HPI 4mt f/u HPI Details - The patient is an 79-year-old male pre senting for his follow up visit - States that he has a recurrent cough t hat he feels has been slowly getting worse over the past couple of weeks - He has a history of a chronic cough an d COPD, for which he uses an inhaler daily, and reports that the cough has recently worsened over the last couple of weeks, now productive of thick, pink phlegm. - The cough is noted to be worse in the morning upon waking. - Associated symptoms include a slight s ore throat attributed to increased coughing and some congestion, for which he has been taking DayQuil and NyQuil. - He denies any fever, trouble breathing , or chest pain. - Recent lab work from last week was not ed to be steady and not concerning. - He reports having received his flu and RSV vaccinations. - His weight has decreased by 3-4 pounds , and his blood pressure is good. - His appetite is stable, though he eats small meals due to a small stomach capacity. [facility] Medical History COVID-19 vaccine administered Overweight (BMI 25.0-29.9) Anxiety History of esophageal cancer Vitamin D deficiency Lumbar degenerative disc disease Osteoarthritis Impaired fasting glucose AAA (abdominal aortic aneurysm) without rupture Benign essential hypertension Pure hypercholesterolemia Esophageal adenocarcinoma Pneumonia Aneurysm TIA (transient ischemic attack) COPD (chronic obstructive pulmonary disease) BPH (benign prostatic hyperplasia) Surgical History History of shoulder surgery History of hip surgery History of bunionectomy of right great toe (~01/26/13) Hx of colonoscopy History of bunionectomy of left great toe (~02/2016) History of colonoscopy History of esophagectomy (~10/15/16) History of incisional hernia repair S/P AAA repair (~05/26/19) Family History Daughter Breast cancer Father Substance abuse Social History Household Members: Spouse Housing: Condominium Alcohol intake: current Alcohol intake frequency: holidays/special occasions only Alcohol type: beer Patient Tobacco Use Status: Former Tobacco user Tobacco use type: Cigarette Cigarette Packs Per Day: 2 e-Cigarette/Vaping Use: Never Used Second Hand Smoke Exposure: Yes service: Yes ([employer] and [employer]) Current occupational status: retired Cognitive needs: No Hearing needs: Yes Vision needs: Yes (glasses) Questionnaire PHQ-9 Over the last 2 weeks, how often have you been bothered by any of the following problems? 1. Little interest or pleasure in doing things: not at all 2. Feeling down, depressed, or hopeless: not at all 3. Trouble falling or staying asleep, or sleeping too much: not at all 4. Feeling tired or having little energy: not at all 5. Poor appetite or overeating: not at all 6. Feeling bad about yourself - or that you are a failure or have let yourself or your family down: not at all 7. Trouble concentrating on things, such as reading the newspaper or watching television: not at all 8. Moving or speaking so slowly that other people could have noticed. Or the opposite - being so fidgety or restless that you have been moving around a lot more than usual: not at all 9. Thoughts that you would be better off or of hurting yourself in some way: not at all Total score: 0 Depression Screening Interpretation: Negative Depression Screening Done: Yes 96013 - PHQ-9 Billing: Yes Source: Developed by Drs. David Chakraborty, Veronica Allan, Demetrio Roberts and colleagues, with an educational crys from [employer]. Thrive Questionnaire Date Thrive assessed: 08/08/25 I am a: Patient What is your living situation today?: I have a steady place to live Within the past 12 months, did the food you bought not last and you didn't have the money to get more?: Never true Within the past 12 months, did you worry whether your food would run out before you got money to buy more?: Never true Do you have trouble paying for medicines?: No Do you have trouble getting transportation to medical appointments?: No Do you have trouble paying your heating and electricity bill?: No Do you have trouble taking care of your child, family member or friend?: No Do you have trouble with day-to-day activities such as bathing, preparing meals, shopping, managing finances, etc.?: No Are you currently unemployed and looking for a job?: No Are you interested in more education?: No Please select the resources that you would like help with: None Currently or been in a relationship where the following occur: No concerns reported THRIVE Score: 0 AUDIT C Alcohol Use Questionnaire (AUDIT-C) 1. How often do you have a drink containing alcohol?: 2-3 times a week 2. How many drinks containing alcohol do you have on a typical day when you are drinking?: 1 or 2 3. How often do you have six or more drinks on one occasion?: Never Total Score: 3 Score Reviewed/Action Taken: Yes SHRUTHI-7 AMB Questionnaire SHRUTHI-7 Date SHRUTHI - 7 assessed: 08/08/25 Feeling nervous, anxious, or on edge: 0 = Not at all Not being able to stop or control worryin = Not at all Worrying too much about different things: 0 = Not at all Trouble relaxin = Not at all Being so restless that it is hard to sit still: 0 = Not at all Becoming easily annoyed or irritable: 0 = Not at all Feeling afraid as if something awful might happen: 0 = Not at all Total SHRUTHI-7 score (0-4 normal; 5-9 mild; 10-14 moderate; 15-21 severe): 0 Source: Developed by Drs. David Chakraborty, Veronica Allan, Demetrio Roberts and colleagues, with an educational crys from [employer]. Review of Systems Const Denies chills, Denies fatigue, Denies fever(s) and Denies headache(s) ENT Denies dysphagia, Denies dizziness, Denies otalgia, Denies headache(s), Denies neck pain, Denies odynophagia and Reports sore throat (mild - mostly from recurrent coughing) Card Denies chest pain, Denies palpitations and Reports dyspnea on exertion (very mild, occasionally) Resp Denies chest congestion, Reports cough (recurrent - see HPI for details), Reports dyspnea on exertion (very mild, occasionally) and Denies wheezing GI Denies abdominal pain, Denies constipation, Denies dysphagia, Denies heartburn, Denies diarrhea, Denies nausea, Denies odynophagia and Denies vomiting Denies difficulty urinating, Denies dysuria, Denies nocturia and Denies urinary frequency Musc Denies back pain, Denies arthralgias and Denies neck pain Skin/Breast Denies rash Neuro Denies dizziness and Denies headache(s) Endo Denies fatigue and Denies palpitations Aller/Immun Denies wheezing Physical exam (Primary Care) Vital Signs: Last Vital Signs Pulse 91 08/08/25 10:37 BP 126/74 08/08/25 10:37 Pulse Ox 98 08/08/25 10:37 Oxygen Delivery Method Room Air 08/08/25 10:37 BMI result Body Mass Index 20.6 Tobacco/Smoking Status: Tobacco use Status Tobacco use date assessed 08/08/25 08/08/25 10:39 Patient Tobacco Use Status Former Tobacco user 08/08/25 10:39 Tobacco use type Cigarette 08/08/25 10:39 e-Cigarette/Vaping Use Never Used 08/08/25 10:39 PHQ-9: PHQ-9 Score PHQ-9: Total score 0 08/08/25 11:15 Depression Screening Interpretation: Negative Thrive Assessment: Date of Thrive Assessment Date Thrive assessed 08/08/25 08/08/25 10:39 Currently or been in a relationship where the following occur: No concerns reported Const General: no acute distress and alert HENMT Ears: TM's normal bilaterally and EAC's normal Throat: Yes posterior oropharynx normal and Yes tonsils normal (no TP congestion noted) Neck Neck: Yes supple and No lymphadenopathy Thyroid: Thyroid normal Resp Auscultation: clear to auscultation bilaterally, no rales and no wheezes Cardio Rate: regular rate Rhythm: regular rhythm Heart sounds: no murmurs GI Palpation (GI): Soft to palpation and nontender Auscultation: normal bowel sounds General: Yes no CVA tenderness Back/Spine/Pelvis Back: no CVA tenderness Thoracic/Lumbar Spine: lumbar spinal tenderness (mild) Skin Rashes: no rashes Extrem General: Yes no clubbing, cyanosis or edema Results Reviewed Results Reviewed: Laboratory Tests 07/31/25 07/31/25 08:34 08:39 WBC 7.3 Hgb 13.4 L Hct 42.5 Plt Count 233 Sodium 140 Potassium 4.5 Creatinine 0.71 Estimated GFR > 60 Fasting Glucose 108 H Hemoglobin A1c % 5.8 Calcium 8.9 AST 20 ALT 14 Triglycerides 73 Cholesterol 125 LDL Cholesterol, Calc 67 HDL Cholesterol 44 TSH 0.96 Ur Specific [place] 1.015 Urine Protein Negative Urine Glucose (UA) Negative Urine Blood Negative Urine Nitrite Negative Ur Leukocyte Esterase Negative Coding Level of Care Code Est Pt Level 4 (93863) Diagnoses Pure hypercholesterolemia E78.00 Benign essential hypertension I10 Impaired fasting glucose R73.01 Chronic obstructive pulmonary disease, unspecified COPD type J44.9 COPD type: unspecified COPD Recurrent cough R05.8 Abdominal aortic aneurysm (AAA) without rupture, unspecified part I71.40 Abdominal aorta location: unspecified Vitamin D deficiency E55.9 Degeneration of intervertebral disc of lumbar region with discogenic back pain M51.360 Disc-related pain type: discogenic back pain only Primary osteoarthritis, unspecified site M19.91 Osteoarthritis location: unspecified site Osteoarthritis type: primary History of esophageal cancer Z85.01 Benign prostatic hyperplasia, unspecified whether lower urinary tract symptoms present N40.0 Lower urinary tract symptom presence: unspecified whether lower urinary tract symptoms present Anxiety F41.9 Additional Codes PHQ-9 - 91514 - PHQ-9 Billing: Yes ([id number]) Assessment & Plan Assessment & Plan (1) Pure hypercholesterolemia: Code(s): E78.00 - Pure hypercholesterolemia, unspecified Category: Medical Plan: Results of his labs done last week reviewed and discussed with patient Reinforced low cholesterol diet Continue Simvastatin 20 mg QD Will recheck his labs and fasting lipids in 4 months for follow-up (2) Benign essential hypertension: Code(s): I10 - Essential (primary) hypertension Category: Medical Plan: Reinforced low-sodium diet - goal is systolic BP of at least 140 mm or less Patient's BP remains very well-controlled Continue Losartan 25 mg QD He is reminded to continue monitoring his blood pressure regularly (3) Impaired fasting glucose: Code(s): R73.01 - Impaired fasting glucose Category: Medical Plan: His HgbA1c was at 5.8% on his labs done last week (was previously at 5.6% a few months ago) FBS was slightly up at 108 mg/dl on his recent labs Reinforced low calorie diet / exercise as tolerated (4) COPD (chronic obstructive pulmonary disease): Code(s): J44.9 - Chronic obstructive pulmonary disease, unspecified Category: Medical Qualifiers: COPD type: unspecified COPD Qualified Code(s): J44.9 - Chronic obstructive pulmonary disease, unspecified Plan: Controlled although he's had a recurrent cough which he feels has gotten worse over the past couple of weeks Will send patient for chest x-rays MEGAH for further evaluation Continue Stiolto Respimat 2.5 mcg 2 puffs QD and Albuterol HFA 2 puffs 4 times a day PRN for now Follow up with pulmonary as scheduled (5) Recurrent cough: Code(s): R05.8 - Other specified cough Category: Medical Plan: This may possibly be due to some exacerbation of his COPD Will start him for now empirically on Doxycycline 100 mg BID x 10 days Will also send him for chest x-rays MEGHA for further evaluation (6) AAA (abdominal aortic aneurysm) without rupture: Comment: S/P AAA repair at [facility] on 01/24/2019 - (+) aortoiliac stent graft over infrarenal AAA Code(s): I71.4 - Abdominal aortic aneurysm, without rupture Category: Medical Qualifiers: Abdominal aorta location: unspecified Qualified Code(s): I71.40 - Abdominal aortic aneurysm, without rupture, unspecified Plan: S/P surgical repair of endoleak over his aortoiliac stent graft on 03/03/[address] Dockery at [facility] States that he has been doing well since with no acute issues and that he recently had repeat imaging studies done at [facility] that came out normal Follow up with vascular surgery as scheduled for continuing management and surveillance (7) Vitamin D deficiency: Code(s): E55.9 - Vitamin D deficiency, unspecified Category: Medical Plan: Continue Vitamin D 2000 units every other day (8) Lumbar degenerative disc disease: Code(s): M51.36 - Other intervertebral disc degeneration, lumbar region Category: Medical Qualifiers: Disc-related pain type: discogenic back pain only Qualified Code(s): M51.360 - Other intervertebral disc degeneration, lumbar region with discogenic back pain only Plan: Reinforced activity and weight lifting restrictions to avoid aggravating his low back pain (9) Osteoarthritis: Code(s): M19.90 - Unspecified osteoarthritis, unspecified site Category: Medical Qualifiers: Osteoarthritis location: unspecified site Osteoarthritis type: primary Qualified Code(s): M19.91 - Primary osteoarthritis, unspecified site Plan: States that his joint pains have been mostly manageable Reinforced regular exercise to help minimize his joint pains and stiffness (10) History of esophageal cancer: Comment: S/P [place] [facility] esophagectomy on 10/15/2016 Code(s): Z85.01 - Personal history of malignant neoplasm of esophagus Category: Medical Plan: Continue Omeprazole [address] done a few months ago reportedly showed no evidence of metastatic disease Follow-up with Oncology (Dr. Delarosa) as scheduled for continuing surveillance - he sees Dr. Delarosa just once a year now (11) BPH (benign prostatic hyperplasia): Code(s): N40.0 - Benign prostatic hyperplasia without lower urinary tract symptoms Category: Medical Qualifiers: Lower urinary tract symptom presence: unspecified whether lower urinary tract symptoms present Qualified Code(s): N40.0 - Benign prostatic hyperplasia without lower urinary tract symptoms Plan: Continue Finasteride 5 mg QD and Tamsulosin 0.4 mg QD Follow up with urology as scheduled (12) Anxiety: Code(s): F41.9 - Anxiety disorder, unspecified Category: Medical Plan: Continue Citalopram 10 mg QD Plan Follow-up in 4 months Orders: Orders XR chest 2V 08/08/25 J98.8 - Other specified respiratory disorders Complete Blood Count Auto Diff 4 Months D64.9 - Anemia, unspecified Lipid Panel 4 Months E78.00 - Pure hypercholesterolemia, unspecified UA CC w/rflx Micro + Cult 4 Months R30.0 - Dysuria Comprehensive [place]. Panel Fast 4 Months E78.00 - Pure hypercholesterolemia, unspecified TSH reflex Free T4 4 Months E78.00 - Pure hypercholesterolemia, unspecified Vitamin D 25-OH Total 4 Months E55.9 - Vitamin D deficiency, unspecified Medications: New doxycycline hyclate 100 mg PO BID 20 caps 0RF 10 days
--- OUTSIDE RECORDS SUMMARY | 2025-08-08 13:52 | XMS_ITS | Data Portability ---
Author Organization [place] - [facility], Allergy Address [address] [address] Care Team Providers Care Scoop Driver Name Role Phone SIM PA Primary Care Provider Assessment Encounter Date Assessment Date Assessment LastModified by Organization Details LastModified Time 03/29/2025 03/29/2025 79-year-old male presents for cerumen removal. Cerumen impaction removed bilaterally. Bilateral TMs are intact with well aerated middle ear spaces. Follow up in 6 months for routine debridement. [email or web address] Not available 03/29/2025 09:27:45 Plan of Treatment Reminders Order Date Submit Date Provider Last Modified By Organization Details Last Modified Time Details Appointments Establish ed 15 2025 11:30A M ANATOLIY PEÑA Not available Not available Not available Lab [...] Recorded Time Impacted cerumen of bilateral ears 12109042745 66411 Active 2016 Impacted cerumen, bilateral ; Note: Date Diagnosed : 01/09/2017 2:26 PM (H61.23) Not Available [facility] 02:14:17 Sensorine ural hearing loss of bilateral ears 433638665 Active 2016 Sensorine ural hearing loss, bilateral ; Note: Date Diagnosed : 01/09/2017 2:31 PM (H90.3) Not Available [facility] 4 02:14:22 History of malignant neoplasm of esophagus 213599774 Active 2016 Personal history of malignant neoplasm: Esophagus ; Note: Date Diagnosed : 01/09/2017 2:31 PM (V10.03) Persona l history of malignant neoplasm of esophagus ; Note: Date Diagnosed : 01/09/2017 2:31 PM (Z85.01) Not Available [facility] 4 02:12:57 Paralysis of larynx 40488555 Active 2016 Paralysis of vocal cords and larynx, unilatera l; Location: left Note : Date Diagnosed : 01/09/2017 4:31 PM (J38.01) Not Available [facility] 4 02:13:52 Dysphonia 17372596 Active 2016 Other voice and resonance disorders ; Note: Date Diagnosed : 02/27/2017 5:18 PM (R49.8) Not Available [facility] 4 02:15:01 Finding of resonance of voice 562632942 Active 2016 Other voice and resonance disorders ; Note: Date Diagnosed : 02/27/2017 5:18 PM (R49.8) Not Available [facility] 4 02:15:01 Tinnitus of left ear 37162658788 06 Active 2023 JENNIFER SANFORD MD [address] [place] [address], [place], [address] , [facility] - [facility] 4 15:08:49 Deviated nasal septum 581397106 Active 2023 JNENIFER SANFORD MD [address] [place] [address], [place], [address] , [facility] - [facility] 4 15:09:16 Problem Notes None recorded. Procedures Surgical History Date Name Laterality Status Provider Name and Address Organization Details Recorded Time 5 Cerumen removal without microscope bilat completed GRANT HURST PA-C [address] [place] [address],[address] [place], [address], [facility] - [facility] [place] 03/29/2025 09:27:27 4 Comp Audio with Tymps - 36774 & 82417 completed MCKENZIE HERNANDEZ [facility], [place], [address], [facility] - [facility] [place] 02/26/2024 15:15:42 4 Cerumen removal with microscope completed JENNIFER COPELAND MD [address] [facility],[place] [address], [place], [address], [facility] - [facility] 02/26/2024 15:08:35 Imaging Results None recorded. Procedure Notes None recorded. Medical Equipment None Reported. Allergies No known drug allergies Medications Name Sig Start Date Stop Date Status Note LastModified by Organization Details LastModified Time amoxicill in 500 mg capsule TAKE 1 CAPSULE BY MOUTH TWICE DAILY FOR 10 DAYS 02/25 completed Not Available Not Available Not Available azithromy leandro 250 mg tablet TAKE 2 TABLETS BY MOUTH FOR 1 DAY THEN TAKE 1 TABLET BY MOUTH DAILY FOR 4 DAYS 03/29 completed Not Available Not Available Not Available citalopra m 10 mg tablet Take 1 tablet every day by oral route. active Not Available Not Available No t Available prednison e 20 mg tablet TAKE 1 TABLET BY MOUTH DAILY FOR 3 DAYS 03/29 completed Not Available Not Available Not Available omeprazol e 40 mg capsule,d elayed [...] active Not Available Not Available Not Available mupirocin 2 % topical ointment APPLY TOPICALL Y TO THE AFFECTED AREA THREE TIMES DAILY FOR 7 DAYS 03/29 completed Not Available Not Available Not Available albuterol sulfate HFA 90 mcg/actua tion aerosol inhaler INHALE 2 PUFFS BY MOUTH EVERY 6 HOURS NEEDED FOR SHORTNES S OF BREATH OR WHEEZING active Not Available Not Available No t Available finasteri de 5 mg tablet active Not Available Not Available Not Available amoxicill in 875 mg-potass ium clavulana te 125 mg tablet TAKE 1 TABLET BY MOUTH TWICE DAILY 03/29 completed Not Available Not Available Not Available Chest Congestio n Relief 400 mg tablet TAKE 1 TABLET BY MOUTH EVERY 4 HOURS 03/29 completed Not Available Not Available Not Available losartan 03/29 completed Not Available Not Available Not Available Advair HFA 115 mcg-21 mcg/actua tion aerosol inhaler 2013 active Medicati on ID: [id number] D uration Value: 90 Brand Name: Advair HFA Send Method: E-Prescr ibed Sub s Allowed: subs OK Medic ationGen ericName : Advair HFA Not Available Not Available Not Available Arnuity Ellipta 100 mcg/actua tion powder for inhalatio n INHALE ONCE BY MOUTH EVERY 24 HOURS 03/29 completed Not Available Not Available Not Available Stiolto Respimat 2.5 mcg-2.5 mcg/actua tion solution for inhalatio n active Not Available Not Available Not Available Vitals Date Recorded Body height Body mass index (BMI) Body weight Provider Name and Address Organization Details Last Updated DateTime 02/26/2024 175.26 cm 22.9 kg/m2 72607.82 g Jerome Morales [place] - [facility] 02/26/2024 14:45:32 Date Recorded Body height Body mass index (BMI) Body weight Provider Name and Address Organization Details Last Updated DateTime 03/29/2025 175.26 cm 21.3 kg/m2 70715.3 g Holly Arreaga [facility] 03/29/2025 08:49:47 Social History None recorded. Functional Status None recorded. Mental Status None recorded. Family History Nothing Reported. Medical History Condition Response Cancer Y Arthritis Y Hypertension Y COPD Y Kidney Disease Y Past Encounters Encounter ID Performer Location Encounter Start Date Encounter Closed Date Diagnosis/Indication Diagnosis SNOMED-CT Code Diagnosis ICD10 Code Diagnosis IMO Codes Diagnosis Note [id number] JENNIFER SANFORD MD [facility] [address] [address] 02/26/2024 14:28:14 02/26/2024 15:42:03 Impacted cerumen of bilateral ears 7422151867 705815 H61.23 Suggested 3 drops distilled vinegar in each ear twice weekly to prevent the buildup of cerumen Tinnitus of left ear 636 8897011 106 H93.12 Audiogram shows symmetric SNHL. Tinnitus present for many years after acoustic trauma. Hold off on any imaging. Deviated nasal septum 12 5435844 J34.2 asymptomat ic. No need for interventi on [id number] MCKENZIE HERNANDEZ [facility] [address] [address] 02/26/2024 15:11:22 02/26/2024 17:59:42 Sensorineural hearing loss of bilateral ears 427597450 H90.3 Tinnitus of left ear 068 1193811 106 H93.12 Right Ear:Modera te to severe SNHL with excellent speech discrimina tion.Type A tympanogra m.Left Ear:Modera te to severe SNHL with excellent speech discrimina tion.Type A tympanogra m. [id number] GRANT HURST PA-C [facility] [address] [address] 03/29/2025 08:33:50 03/29/2025 09:28:18 Impacted cerumen of bilateral ears 9716167214 349791 H61.23 Health Concerns Section Related Observation LastModified by Organization Detai ls LastModified Time None Recorded Concern Status LastModified by Organization Details LastModified Time None Recorded Advance Directives Directive None Recorded Payers Insurance Date Sequence Insurance Name Policy Number Policy [place] Covered Member ID [place] Member ID Guarantor Name 03/29/2025 2 FOR LIFE ( - MEDICARE SUPPLEMENT) David Cosby [id number] David Cosby 03/29/2025 2 FOR LIFE ( - MEDICARE SUPPLEMENT) David Cosby [id number] David Cosby 03/29/2025 1 MEDICARE B-[place]: [facility] [employer] David Cosby [id number] David Cosby Notes Date Note Type Note Provider Name and Address Organization Details Recorded Time 02/26/2024 text/html Last seen 2017 with dysphonia following esophageal resection. Cancer free for 6 yrs. Voice normal. Chronic left HL and tinnitus due to noise exposure. Has Hearing aids. Followed at [place] JENNIFER COPELAND MD [address] [facility],[address], [address], [place] - [facility] 02/26/2024 16:24:49 03/29/2025 text/html ROS as noted in the HPI 79-year-old male presents for cerumen removal. No concerns today. Has hearing aids from [place]. JENNIFER COPELAND MD [address] [facility], [place], [address], [place] - [facility] 03/29/2025 12:49:52
--- OUTSIDE RECORDS SUMMARY | 2025-08-08 13:52 | XMS_ITS | Clinical Summary ---
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 [...] PM EDT Office Visit [facility] [place] [address] [place] [phone] Yeni Tapia PA Type IIa endoleak of [...] Anxiety disorder DX:Anxiety diso rder Esophageal cancer ([facility] V 24, [facility] V28) DX:Esophageal cancer (HCC) Adverse effect of anesthesia Bernard d to wake after 9 1/2 hr sx 7 rs ago Adverse effect of anesthesia HL (hearing loss) Diverticulosis History of transfusion Arthritis Joint pain Emphysema lung ([facility] V24, [facility] V28) Left-sided tinnitus GERD (gastroesophageal reflux disease) [...] for your loved ones. For example, child development instructor or elderly care for an older adult? [...] AM EST Office Visit [facility] [place] [address] [place] [address] Cedric Durham MD [address] [place] [address] Health Maintenance Due Date Last Done Comments [...] this topic Medical Devices Implanted Type Area Termite Control Representative Device Identifier Shelf Expiration Date Model / Serial / Lot Sealant Fibrin Vistaseal 2ml - [id number] - [id number] Implanted:Qty: 1 on 04/26/2025 by Cedric Durham MD at [facility] Hemostasis N/A: Groin [employer] [id number] 06/26/2026 [facility] / [id number] / [id number] Volunteer Services Director Endoanchor Sheree-Fx - Sna - [id number] Implanted:Qty: 1 on 04/26/2025 by Cedric Durham MD at [facility] Internal and External Fixation N/A: Groin [employer] [id number] 09/16/2026 SA-85 / NA / [id number] Guide Endoanchr Sg-64 Aaa 62cm - Sna - [id number] Implanted:Qty: 1 on 04/26/2025 by Cedric Durham MD at [facility] Thoracic AAA Stent Grafts N/A: Groin [employer] [id number] 01/12/2026 SG-64 / NA / [id number] Procedures Procedure Name Priority Date/Time Associated Diagnosis Comments BASIC METABOLIC PANEL Routine 04/27/2025 6:00 AM EDT from Last 3 Months or Most Recently Relevant to Health Maintenance Results * (ABNORMAL) Basic metabolic panel (04/27/2025 6:00 AM EDT) Sodium 139 133 - 145 mmol/L LAB CHEMISTRY METHOD 04/27/2025 7:27 AM EDT [facility] Potassium 4.5 3.5 - 5.5 mmol/L LAB CHEMISTRY METHOD 04/27/2025 7:27 AM EDT [facility] Chloride 104 96 - 110 mmol/L LAB CHEMISTRY METHOD 04/27/2025 7:27 AM EDT [facility] CO2 28 21 - 32 mmol/L LAB CHEMISTRY METHOD 04/27/2025 7:27 AM [facility] Anion Gap 7 3 - 11 LAB CHEMISTRY METHOD 04/27/2025 7:27 AM [facility] Glucose 119(H) 70 - 100 mg/dL LAB CHEMISTRY METHOD 04/27/2025 7:27 AM [facility] BUN 10 5 - 25 mg/dL LAB CHEMISTRY METHOD 04/27/2025 7:27 AM [facility] Creatinine 0.73 0.70 - 1.30 mg/dL LAB CHEMISTRY METHOD 04/27/2025 7:27 AM [facility] eGFR 91 >=60 mL/min/1. 73m2 LAB CHEMISTRY METHOD 04/27/2025 7:27 AM [facility] Comment:Calculation based on the Chronic Kidney Disease Epidemiology Collaboration (CKD-EPI) equation refit without adjustment for race. BUN/Creatinine Ratio 13.7 LAB CHEMISTRY METHOD 04/27/2025 7:27 AM [facility] Calcium 8.5 8.5 - 10.5 mg/dL LAB CHEMISTRY METHOD 04/27/2025 7:27 AM [facility] Blood Venous blood specimen / Unknown Venipuncture / Unknown 04/27/2025 6:00 AM EDT 04/27/2025 6:16 AM EDT us Radha COPE LAB BLOOD ORDERABLES Final Res ult [facility] [address] [place] [address], from Last 3 Months or Most Recently Relevant to Health Maintenance Insurance MEDICARE [facility] Advance Directives * Full Code - [...] currently active code status orders. Care Teams Engineering Coordinator Relationship Specialty Start Date End Date Sergio Ballesteros MD [address] [place] [address] [address] RUI Davison PCP - General Internal Medicine 10/15/16
== END 2025-08-08 11:36 | disposition home or self-care (01) ==
LOC: HO.HMCH 10:22
PROVIDERS: PCP Internal Medicine; Visit Provider Internal Medicine
DX: E78.00 Pure hypercholesterolemia, unspecified (principal); I10 Essential (primary) hypertension; R73.01 Impaired fasting glucose; J44.9 Chronic obstructive pulmonary disease, unspecified; R05.8 Other specified cough; I71.40 Abdominal aortic aneurysm, without rupture, unspecified; E55.9 Vitamin D deficiency, unspecified; M51.360 Other intervertebral disc degeneration, lumbar region with discogenic back pain only; M19.91 Primary osteoarthritis, unspecified site; Z85.01 Personal history of malignant neoplasm of esophagus; N40.0 Benign prostatic hyperplasia without lower urinary tract symptoms; F41.9 Anxiety disorder, unspecified

== ENCOUNTER → 2025-08-08 11:50 | Outpatient (BNV) | payer MEDICARE, OTHER, SELFPAY | PROVIDERS: PCP Internal Medicine; Visit Provider Radiology Diagnostic Radiology | DX: J98.8 Other specified respiratory disorders (principal); R91.8 Other nonspecific abnormal finding of lung field | CPT/HCPCS: 71046 ==